=== PATIENT | female | born 1980 | race Caucasian/White ===

== ENCOUNTER 2016-03-15 19:21 | Emergency (ER) | payer OTHER ==
[~2016-03-15] VITALS: Ht 157.5 cm; Wt 82.0 kg
[~2016-03-15 19:21] MED LIST: ALBUAER19 INH; BUPR-266 PO; ESCI10TA17 PO; FLX/5 PO; FRCT/ PO; GABA1CAP4 PO; KLN5X PO; TRET15GE TOP; mirena
[2016-03-15 19:25] VITALS: TEMP 36.8; Ht 157.5 cm; Wt 82.0 kg
[2016-03-15] MEDS ORDERED: HYDROmorphone INJ 1 MG/ML SYR IV STA (19:33)
[2016-03-15] MEDS ORDERED: LINA1CAP2 PO (19:47)
[2016-03-15] MEDS ORDERED: LEVO50TA6 PO (19:49)
[2016-03-15] MEDS ORDERED: BUPR-79 PO (19:50)
[2016-03-15] MEDS ORDERED: LEVO1IUD2 INT UTER (19:55)
--- NOTE | 2016-03-15 19:58 | DIAGNOSTIC IMAGING REPORT ---
LEFT TIBIA/FIBULA 2 VIEWS ROUTINE CLINICAL HISTORY: Left leg pain. Fall. COMPARISON STUDY: None. FINDINGS: There is an oblique mildly displaced fracture within the distal shaft of the left fibula. This demonstrates up to 4 mm of medial displacement and posterior angulation. There is also a slightly comminuted fracture within the distal left tibia which extends to the articular surface. This also demonstrates up to 5 mm of medial displacement and posterior angulation. There soft tissue swelling within the distal left lower leg. IMPRESSION: Distal left tibial and fibular fractures as described above. Electronically signed by: Deacon Vyas M.D. 03/15/2016 7:56 PM
[2016-03-15] MEDS ORDERED: CHOL1000 PO (20:01)
[2016-03-15] MEDS ORDERED: CYAN10005 PO (20:01)
[2016-03-15] MEDS ORDERED: OXYCODONE IR HOME PACK PO ONE (20:15)
[2016-03-15] MEDS ORDERED: OXYC1TAB3 PO (20:20)
[2016-03-15] MEDS ORDERED: FENTANYL CITRATE INJ 50 MCG/1 ML 2 ML VIAL IV STA (20:22)
[2016-03-15 21:07] LABS: HEMATOCRIT 42.2 % (37-47); MEAN CELL VOLUME 88.3 fL (80-100); MEAN CORPUSCULAR HGB CONC 35.1 g/dl (32-36); MEAN PLATELET VOLUME 10.5 fL (7.4-10.4); PLATELET COUNT 235 K/uL (130-400); RED BLOOD COUNT 4.78 M/uL (4.2-5.4); WHITE BLOOD COUNT 11.97 K/uL (4.8-10.8)
[2016-03-15 21:26] LABS: BUN/CREATININE RATIO 19.2 (10-20); CALCIUM 9.2 mg/dl (8.5-10.1); CREATININE 0.93 mg/dl (0.60-1.20); POTASSIUM 3.8 mmol/L (3.5-5.1)
[2016-03-15 21:31] LABS: PREG INTERNAL NEGATIVE QC NEG CLEAR BACKGROUND; PREG INTERNAL POSITIVE QC POS CONTROL LINE
--- NOTE | 2016-03-15 21:34 | EMERGENCY ROOM VISIT NOTE ---
History First contact with patient: 19:28 Chief Complaint: CALF PAIN Stated Complaint: CALF PAIN History of Present Illness The patient is a 35 year old female who presents to the Emergency Room with complaints of left leg pain. The patient reports stepping in a hole in the dark , and twisted the leg. She was transported here via ALS ambulance with severe pain. She was administered morphine 7 mg and Zofran 1 mg IVP en route. The patient reports persistent pain rated a 6 out of 10. She denies any pain extending above the knee. She denies any paresthesias or numbness of the left foot or toes. She denies any prior history of left leg fractures or other left lower extremity surgeries. Review of Systems 10 system review was performed and was negative except for pertinent positives and negatives as indicated in history of present illness Past Medical/Surgical History Medical Problems: (1) Asthma (2) Depression (3) Headache (4) Migraine (5) MRSA (methicillin resistant Staphylococcus aureus) (6) Nephrolithiasis (7) URI (upper respiratory infection) Surgical Problems: (1) H/O wisdom tooth extraction (2) Hx of tonsillectomy (3) S/P thyroid biopsy Family History Cancer Diabetes mellitus Hypertension Kidney disease Kidney stones Social History Smoking Status: Never Smoker Alcohol Use: occasionally Marital Status: Occupation Status: employed Current/Historical Medications Scheduled Albuterol Inhaler (Ventolin Inhaler), 2 PUFFS INH QID PRN Bupropion Hcl (Bupropion Hcl Er), 200 MG PO BID Cholecalciferol (Vitamin D3), 1,000 UNITS PO DAILY Cyanocobalamin (Vitamin B-12), 1,000 MCG PO DAILY Escitalopram (Lexapro), 20 MG PO DAILY Gabapentin (Gabapentin), 300 MG PO TID Levonorgestrel (Iud) (Mirena), 20 MCG INT UTER CONTINOUS Levothyroxine Sodium (Levothyroxine Sodium), 50 MCG PO DAILY Tretinoin (Retin-A), 1 APPL TOP HS Scheduled PRN Acetamin/Butalbital/Caffeine (Fioricet), 1-2 TAB PO QID PRN for Headache Clonazepam (Clonazepam), 0.25 MG PO BID PRN for Anxiety/Agitation Cyclobenzaprine HCl (Cyclobenzaprine HCl), 5 MG PO TID PRN for Muscle Spasms Oxycodone Ir (Roxicodone Ir), 1-2 TAB PO Q4H PRN for Pain Miscellaneous Medications Linaclotide (Linzess), 290 MG PO Allergies Coded Allergies: Citalopram (Verified Allergy, Unknown, thought changes, 12/01/15) TOLD TO NEVER TAKE IT Latex (Verified Allergy, Unknown, hives ,rash, 12/01/15) pt Physical Exam Vital Signs Date Time Temp Pulse Resp B/P Pulse Ox O2 Delivery O2 Flow Rate FiO2 03/15/16 20:00 110 20 134/99 99 Room Air 03/15/16 19:25 36.8 100 20 134/99 97 Room Air Physical Exam CONSTITUTIONAL: Healthy and well nourished. Alert and oriented X 3 with positive affect. Patient appears in moderate discomfort from pain. HEENT: Normocephalic, atraumatic. Pupils equal, round and reactive. NECK: Full active range of motion without discomfort. RESPIRATORY: Clear to auscultation bilaterally with no wheezing, crackles, rhonchi or stridor. CARDIOVASCULAR: Regular rate and rhythm with no murmurs, rubs or gallops. MUSCULOSKELETAL: Examination shows mild edema of the left leg. She has generalized tenderness of the mid to proximal leg region. She has no focal tenderness over the medial or lateral knee joint line. No popliteal masses or obvious knee joint effusion. She has no tenderness to palpation about the ankle or foot. Pedal pulses are intact. INTEGUMENTARY: No rash or other significant dermatologic conditions noted. NEUROLOGIC: Left foot and toes are sensory intact. Medical Decision & Procedures ER Provider Diagnostic Interpretation: My interpretation of tib-fib x-rays shows a comminuted and intra-articular fracture component of the distal tibia, and oblique spiral fracture of the distal fibula with mild displacement. Radiologist report is as follows: LEFT TIBIA/FIBULA 2 VIEWS ROUTINE CLINICAL HISTORY: Left leg pain. Fall. COMPARISON STUDY: None. FINDINGS: There is an oblique mildly displaced fracture within the distal shaft of the left fibula. This demonstrates up to 4 mm of medial displacement and posterior angulation. There is also a slightly comminuted fracture within the distal left tibia which extends to the articular surface. This also demonstrates up to 5 mm of medial displacement and posterior angulation. There soft tissue swelling within the distal left lower leg. IMPRESSION: Distal left tibial and fibular fractures as described above. Post reduction x-ray shows adequate reduction and alignment. Laboratory Results 03/15/16 20:40 03/15/16 20:40 Test 03/15/16 20:40 Red Blood Count 4.78 M/uL (4.2-5.4) Mean Corpuscular Volume 88.3 fL (80-100) Mean Corpuscular Hemoglobin 31.0 pg (25-34) Mean Corpuscular Hemoglobin Concent 35.1 g/dl (32-36) RDW Standard Deviation 38.8 fL (36.4-46.3) RDW Coefficient of Variation 12.1 % (11.5-14.5) Mean Platelet Volume 10.5 fL (7.4-10.4) Anion Gap 12.0 mmol/L (3-11) Est Creatinine Clear Calc Drug Dose 84.6 ml/min Estimated GFR () 92.9 Estimated GFR (Non- 80.2 BUN/Creatinine Ratio 19.2 (10-20) Calcium Level 9.2 mg/dl (8.5-10.1) Human Chorionic Gonadotropin, Qual NEG (NEG) Medications Administered Medications (Trade) Dose Ordered Sig/[place] Route Start Time Stop Time Status Last Admin Dose Admin Hydromorphone HCl (Dilaudid Inj) 1 mg NOW STAT IV 03/15/16 19:33 03/15/16 19:34 DC 03/15/16 19:37 1 MG Fentanyl Citrate (Fentanyl Inj) 100 mcg NOW STAT IV 03/15/16 20:22 03/15/16 20:23 DC 03/15/16 20:37 100 MCG ED Course Patient history and physical exam were performed. Nurse's notes were reviewed. The patient did request additional medicine for pain. She was administered Dilaudid 1 mg IVP. The patient denied any nausea on initial exam. X-rays of the left tib-fib shows distal tibia and fibula fractures. The case was further discussed with Dr. Payan, orthopedic surgeon on-call, who requested a long posterior and stirrup Ortho-Glass splints. He will let the office know that the patient will be calling tomorrow morning to be seen by Dr. Mack to discuss surgical treatment. Preoperative labs were also requested by Dr. Payan , and ordered by me. The patient did request additional pain medication prior to moving the leg again, and was administered fentanyl 100 g IVP. Ortho-Glass splints were successfully applied. Neurovascular check after splint placement was normal. Post reduction x-rays showed adequate reduction and alignment. The patient was provided crutches to remain nonweightbearing. She received home packs and prescriptions for OxyIR 5 mg. No drinking or driving while taking OxyIR. She was also encouraged to take Tylenol 1000 mg every 6-8 hours for additional baseline pain relief. The patient was happy with plan of care, voiced understanding of all discharge instructions, and rated her pain a 3 out of 10 at the time of discharge. Medical Decision [place] Drug Monitoring Program Search Results: patient reviewed within database, no issues identified Impression Primary Impression: Closed left tibial fracture Additional Impressions: Closed left fibular fracture, Work related injury Departure Information Prescriptions Oxycodone Ir (Roxicodone Ir) 5 Mg Tab 1-2 TAB PO Q4H Y for Pain, #24 TAB For Initial Treatment Prov: Reji Nam PA 03/15/16 Referrals RV. Dumont MD (PCP) Patient Instructions A Signature Page, My [facility] Spreaker
[2016-03-15 21:51] VITALS: BP 139/97; PULSE 100; O2SAT 98
[2016-03-15 22:27] LABS: PROTHROMBIN TIME (PATIENT) 10.8 SECONDS (9.0-12.0)
--- NOTE | 2016-03-15 22:30 | DIAGNOSTIC IMAGING REPORT ---
LEFT TIBIA/FIBULA 2 VIEWS ROUTINE CLINICAL HISTORY: Post-reduction x-ray. Left lower leg fracture. COMPARISON STUDY: Left tibia/fibula 03/15/2016. FINDINGS: The patient is status post reduction of the distal left fibula and tibial fractures. Overlying splint material. Soft tissue swelling within the distal left lower leg. There is improved anatomic alignment of the distal fractures. The posterior angulation has essentially resolved. There is 5 mm of posterior displacement of the distal comminuted tibial fracture and 3 mm of posterior displacement the distal oblique fibular fracture. Again, the distal tibial fracture extends to the articular surface. IMPRESSION: Mildly displaced distal left tibial and fibular fractures with improved anatomic alignment status post reduction. Electronically signed by: Deacon Vyas M.D. 03/15/2016 10:29 PM
== END 2016-03-15 21:52 | disposition home or self-care (01) ==
LOC: EDBD 19:21 → C.EDD 19:22
DX: S82.202A Unspecified fracture of shaft of left tibia, initial encounter for closed fracture (principal); S82.402A Unspecified fracture of shaft of left fibula, initial encounter for closed fracture; X50.1XXA Overexertion from prolonged static or awkward postures, initial encounter; Y99.0 Civilian activity done for income or pay; J45.909 Unspecified asthma, uncomplicated; Z80.9 Family history of malignant neoplasm, unspecified; Z84.1 Family history of disorders of kidney and ureter; Z83.3 Family history of diabetes mellitus

== ENCOUNTER 2016-03-16 13:29 | Inpatient (IN) | payer OTHER ==
[~2016-03-16] VITALS: Ht 157.5 cm; Wt 81.8 kg
[~2016-03-16 13:29] MED LIST changes: +CHOL1000 PO; +CYAN10005 PO; +LEVO50TA6 PO; +LEVOIUD INT UTER; +LINA1CAP2 PO; +OXYC1TAB3 PO; -mirena
[2016-03-16 13:49] VITALS: BP 131/94; PULSE 91; TEMP 36.8; O2SAT 97; Ht 157.5 cm; Wt 81.8 kg
[2016-03-16] MEDS ORDERED: ONDANSETRON INJ 2 MG/ML 2 ML VIAL IV PRN (14:00)
[2016-03-16] MEDS ORDERED: MoRPHine SULFATE 2 MG/ML CARP IV PRN (14:00)
[2016-03-16] MEDS ORDERED: ALBUTEROL HFA 8 GM INHALER INH PRN (14:15)
[2016-03-16 15:33] VITALS: BP 129/85; PULSE 93; TEMP 37; O2SAT 97
--- NOTE | 2016-03-16 15:35 | DIAGNOSTIC IMAGING REPORT ---
LEFT TIBIA/FIBULA CT CT DOSE: HISTORY: Left lower leg fracture. TECHNIQUE: Multiaxial CT images of the left tibia/fibula were performed and reformatted in the sagittal and coronal plane without the use of contrast. COMPARISON: Left tibia/fibula 03/15/2016. FINDINGS: Subcutaneous edema within the distal left lower leg. There is again noted an oblique fracture within the distal shaft of the left fibula. This demonstrates 3 mm of medial displacement and 2 mm of posterior displacement. This also demonstrates mild posterior angulation. There is also a comminuted fracture involving the distal shaft of the left tibia that extends to the tibial plafond/articular surface. At the level of the distal shaft this fracture demonstrates 7 mm of posterior displacement and up to 4 mm of medial displacement. The proximal tibia and fibula are intact. IMPRESSION: Mildly displaced distal left tibial and fibular fractures as described above. Electronically signed by: Deacon Vyas M.D. 03/16/2016 3:33 PM
[2016-03-16] MEDS: OXYCODONE HCL IR 5 MG TAB (IMMEDIATE RELEASE) PO PRN (16:03)
[2016-03-16] MEDS: ACETAMINOPHEN 500 MG TAB PO SCH ×2 (16:04→21:33)
--- NOTE | 2016-03-16 16:28 | HISTORY & PHYSICAL EXAMINATION ---
DATE OF ADMISSION: 03/16/2016 CHIEF COMPLAINT: Left ankle pain. HISTORY OF PRESENT ILLNESS: The patient is a 35-year-old female who suffered a fall last evening when she stepped in a hole walking to her car at work. She had immediate pain and disability. She was taken to [facility] ED for evaluation. X-rays revealed a left distal tib-fib fracture. She was placed into a splint and sent home, referred to our office for further orthopedic evaluation. Upon evaluation in the office today, the patient is clearly too uncomfortable to be treated as an outpatient and given the nature of her fracture, she requires a CT scan and surgical fixation. PAST MEDICAL HISTORY: Asthma, depression, migraines, history of MRSA. PAST SURGICAL HISTORY: Unknown. MEDICATIONS: Include albuterol 2 puffs q.i.d. p.r.n., bupropion HCL 200 mg b.i.d., vitamin D 3000 units daily, vitamin B12 1000 mcg daily, Lexapro 20 mg daily, gabapentin 300 mg t.i.d., levothyroxine 50 mcg daily, Tretinoin applied topically daily, Linzess 290 mg daily. ALLERGIES: CITALOPRAM, LATEX. SOCIAL HISTORY AND REVIEW OF SYSTEMS: Noncontributory. PHYSICAL EXAMINATION: GENERAL: Well-nourished, well-developed female who is in quite a bit of discomfort due to her fracture. HEENT: Normocephalic, atraumatic, extraocular movements intact, oropharynx pink and moist. NECK: Supple without adenopathy. LUNGS: Clear to auscultation bilaterally. HEART: Regular rate and rhythm. ABDOMEN: Soft, nontender, nondistended. EXTREMITIES: The left lower leg is in a short posterior splint. Toes were mobile. X-RAYS: X-rays were reviewed. She has a displaced, comminuted intraarticular distal tibia fracture with associated distal fibular fracture. ASSESSMENT: Displaced, comminuted intraarticular left distal tibia fracture with associated distal fibula fracture. PLAN: Above discussed with patient and her . She is going to be admitted to the hospital for pain control. A CT scan will be ordered to further evaluate her fracture and surgical intervention will take place likely by Dr. Payan in the next several days.
[2016-03-16] MEDS: MoRPHine SULFATE 4 MG/ML 1 ML CARP\\VIAL IV PRN (21:20)
[2016-03-16] MEDS: GABAPENTIN 300 MG CAP PO SCH (21:21)
[2016-03-16] MEDS: BuPROPion SR 100 MG TABCR PO SCH (21:21)
[2016-03-16] MEDS: MoRPHine SULFATE 10 MG/ML CARP/VIAL IV PRN (23:29)
[2016-03-17] VITALS (8 sets, daily range): BP systolic 107–139; BP diastolic 68–85; PULSE 83–104; TEMP 36.7–37; O2SAT 96–99
[2016-03-17] MEDS: MoRPHine SULFATE 10 MG/ML CARP/VIAL IV PRN ×4 (04:57→23:52)
[2016-03-17] MEDS: ACETAMINOPHEN 500 MG TAB PO SCH ×3 (06:00→22:00)
[2016-03-17] MEDS: LEVOTHYROXINE 50 MCG TAB PO SCH (06:00)
[2016-03-17] MEDS: CHOLECALCIFEROL 1000 INTER.UNIT TAB PO SCH (09:00)
[2016-03-17] MEDS: GABAPENTIN 300 MG CAP PO SCH ×3 (09:00→21:02)
[2016-03-17] MEDS: BuPROPion SR 100 MG TABCR PO SCH ×2 (09:00→21:02)
[2016-03-17] MEDS: ESCITALOPRAM OXALATE 20 MG TAB PO SCH (09:00)
--- NOTE | 2016-03-17 10:33 | Orthopedic Progress Note ---
Orthopedic Progress Note Date of Service Mar 17, 2016. Subjective Reports: feeling well, Denies: SOB, chest pain, light headedness, nausea / vomiting Objective splint C/D/I, capillary refill less than 2 sec., A&O x3 Date Time Temp Pulse Resp B/P Pulse Ox O2 Delivery O2 Flow Rate FiO2 03/17/16 08:00 Room Air 03/17/16 07:21 36.7 83 16 139/85 99 Room Air 03/17/16 00:19 36.9 93 16 129/84 96 Room Air 03/16/16 23:30 Room Air 03/16/16 15:33 37.0 93 18 129/85 97 Room Air 03/16/16 15:10 Room Air 03/16/16 13:49 36.8 91 16 131/94 97 Room Air Assessment & Plan Assessment: Left Distal Tibia Fx with articular extension/ Fibula Fx Plan: Plan for OR today for ORIF of above fx's. Inhouse Planning Pain Management: Morphine, Oxy IR DVT Prophylaxis: SCDs
[2016-03-17] MEDS ORDERED: ONDANSETRON INJ 2 MG/ML 2 ML VIAL ONE (12:50)
[2016-03-17] MEDS ORDERED: DEXAMETHASONE SOD INJ 4 MG/ML VIAL ONE (12:50)
[2016-03-17] MEDS ORDERED: MIDAZOLAM HCL 1 MG/ML 2ML VIAL ONE (12:50)
[2016-03-17] MEDS ORDERED: PROPOFOL IV EMULSION 10 MG/ML 20 ML VIAL IV ONE (12:50)
[2016-03-17] MEDS ORDERED: LIDOCAINE HCL 2% 2 ML VIAL (20MG/ML) ONE (12:50)
[2016-03-17] MEDS ORDERED: FENTANYL CITRATE INJ 50 MCG/1 ML 2 ML VIAL ONE ×2 (12:50→14:02)
--- NOTE | 2016-03-17 12:54 | History & Physical Bridge Note ---
H&P Re-Evaluation Bridge Note: I have examined the patient, reviewed the History & Physical and in the interval since the performance of the History & Physical I have noted the following changes of clinical significance: No changes noted
[2016-03-17] MEDS ORDERED: BUPIVACAINE 0.5 % 5 MG/1 ML PF 10ML VIAL ONE (12:57)
[2016-03-17] MEDS ORDERED: CEFAZOLIN IV 2,000 MG/60 ML D5W IV ONE (13:17)
[2016-03-17] MEDS ORDERED: NURSING VERBAL MED ORDER ONE (13:30)
[2016-03-17] MEDS ORDERED: LACTATED RINGER'S 1000ML 1,000 ML IV PRN (13:46)
[2016-03-17] MEDS ORDERED: ONDANSETRON INJ 2 MG/ML 2 ML VIAL IV PRN (14:00)
[2016-03-17] MEDS ORDERED: LABETALOL HCL IV 5 MG/ML 20ML ONE (15:39)
--- NOTE | 2016-03-17 15:48 | DIAGNOSTIC IMAGING REPORT ---
Fracture LEFT ANKLE 2 VIEWS CLINICAL HISTORY: Fracture TECHNIQUE: Image intensifier COMPARISON STUDY: 03/15/2016 FINDINGS: Reduction internal fixation of fractures of the tibia as well as fibula. Alignment appears to be anatomic. IMPRESSION: Anatomic alignment status post open reduction internal fixation Electronically signed by: Dennis Feldman M.D. 03/17/2016 3:46 PM Dictated Date/Time: 03/17/2016 3:45 PM
--- NOTE | 2016-03-17 15:48 | [facility] Post Operative Brief Note ---
Immediate Operative Summary Operative Date Mar 17, 2016. Pre-Operative Diagnosis Displaced, comminuted intraarticular left distal tibia fracture with associated distal fibula fracture. Post-Operative Diagnosis Displaced, comminuted intraarticular left distal tibia fracture with associated distal fibula fracture. Procedure(s) Performed Left Distal Tibia Fibula Fracture Open Reduction Internal Fixation Surgeon Dr. Ariel Mack Full Stack Developer Surgeon(s) Dev Garza PA-C Estimated Blood Loss 100cc Findings intraarticular comminuted tib fib fx Specimens none per surgeon Disposition Recovery Room / PACU
[2016-03-17] MEDS: FENTANYL CITRATE INJ 50 MCG/1 ML 2 ML VIAL IV PRN ×2 (16:52→16:57)
--- NOTE | 2016-03-17 17:15 | Anesthesiology Progress Note ---
Anesthesia Post Op Note Date & Time Mar 17, 2016 at 17:14 Vital Signs Pain Intensity: 8.0 Vital Signs Past 12 Hours Date Time Temp Pulse Resp B/P Pulse Ox O2 Delivery O2 Flow Rate FiO2 03/17/16 16:55 36.5 86 15 128/86 96 Room Air 03/17/16 16:45 86 16 132/77 100 Room Air 03/17/16 16:35 89 12 132/80 100 Mask 10 03/17/16 16:25 87 12 123/85 100 Mask 10 03/17/16 16:16 36.5 100 16 115/78 100 Mask 10 03/17/16 13:02 37.0 81 20 133/96 95 Room Air 03/17/16 08:00 Room Air 03/17/16 07:21 36.7 83 16 139/85 99 Room Air Notes Mental Status: alert / awake / arousable Nausea / Vomiting: adequately controlled Pain: adequately controlled Airway Patency, RR, SpO2: stable & adequate BP & HR: stable & adequate Hydration State: stable & adequate Anesthetic Complications: no major complications apparent
--- NOTE | 2016-03-17 17:45 | DIAGNOSTIC IMAGING REPORT ---
LEFT TIBIA/FIBULA 2 VIEWS ROUTINE CLINICAL HISTORY: Postop internal fixation COMPARISON: 03/15/2016 DISCUSSION: The comminuted distal tibial fracture has been fixated with a medial metallic plate and multiple screws. The distal fibular fracture has been fixated with a lateral metallic plate and multiple screws. The tibial fracture has intra-articular component. Alignment appears near-anatomic. The fine bony details obscured by overlying plaster cast. IMPRESSION: Interval internal fixation of the distal tibia and fibular fractures with application of a plaster cast Electronically signed by: Deangelo Araiza M.D. 03/17/2016 5:43 PM Dictated Date/Time: 03/17/2016 5:42 PM
[2016-03-17] MEDS: CEFAZOLIN IV 2,000 MG in DEXTROSE 5% 50ML 50 ML IV SCH (22:43)
[2016-03-18 04:08] VITALS: BP 126/82; PULSE 96; TEMP 36.9; O2SAT 98
[2016-03-18] MEDS: LEVOTHYROXINE 50 MCG TAB PO SCH (05:38)
[2016-03-18] MEDS: ACETAMINOPHEN 500 MG TAB PO SCH ×3 (05:39→21:38)
[2016-03-18] MEDS: CEFAZOLIN IV 2,000 MG in DEXTROSE 5% 50ML 50 ML IV SCH (05:39)
--- NOTE | 2016-03-18 06:58 | OPERATIVE REPORT ---
DATE OF OPERATION: 03/17/2016 PREOPERATIVE DIAGNOSIS: Comminuted intra-articular tib-fib fracture, left ankle. POSTOPERATIVE DIAGNOSIS: Comminuted intra-articular tib-fib fracture, left ankle. PROCEDURE: Open reduction internal fixation of comminuted tib-fib fracture, left ankle. SURGEON: Ariel Mack MD THERMOFORMING OPERATOR: Dev Garza PA-C ANESTHESIA: General. COMPLICATIONS: None. DESCRIPTION OF PROCEDURE: Following induction of adequate general anesthesia, the patient's left leg was prepped and draped in usual sterile manner. Limb was exsanguinated with an Esmarch bandage and tourniquet was inflated to 350 mmHg. A longitudinal incision was made over the fibula. Subcutaneous tissue was sharply and bluntly dissected. Electrocautery was used for hemostasis. Subperiosteal dissection was utilized to expose the fracture site and hematoma was removed from the fracture, where a long oblique fracture was noted. The fracture was reduced into its anatomic position and held using a single cortical screw under lag mode. Next, an 8-hole 1/3 tubular plate was applied to the lateral aspect of the fibula, it was fixed proximally using 4 fibular locking screws and distally with 3 fibular locking screws and a single oblique cortical screw. This anatomically fixed the fracture and secondarily reduced the tibia fracture, acting as a lateral strut. The decision was made to proceed with a percutaneous fixation of the tibia fracture. A longitudinal incision was made over the medial malleolus roughly 3.5 cm and an 8-hole medial tibial locking plate was ____ along the medial aspect of the tibia. Image intensification revealed adequate plate placement and bone reduction. First the plate was affixed to the proximal fragment using a single cortical screw to lag the plate onto the bone. Next, distal screws were placed in locking mode and finally an additional 3 locking screws were placed proximally fixing the fracture in nearly anatomic position. The wounds were irrigated and closed with 2-0 Dexon and nylon. Sterile dressing of Adaptic, 4 x 4's, sterile Webril and plaster splint was applied. The patient was awakened and taken to recovery in stable and good condition. She tolerated the procedure well. Mr. Garza was essential in all portions of the case including positioning, retraction, surgical assistance, wound closure, dressing and splint application. I attest to the content of the Intraoperative Record and any orders documented therein. Any exceptio ns are noted below.
[2016-03-18 07:49] VITALS: BP 129/82; PULSE 86; TEMP 36.9; O2SAT 98
--- NOTE | 2016-03-18 07:49 | Orthopedic Progress Note ---
Orthopedic Progress Note Date of Service Mar 18, 2016. Subjective Post OP Day: 1 Reports: feeling well Objective N/V intact, splint C/D/I, dressing C/D/I Date Time Temp Pulse Resp B/P Pulse Ox O2 Delivery O2 Flow Rate FiO2 03/18/16 04:08 36.9 96 16 126/82 98 Room Air 03/17/16 23:50 Room Air 03/17/16 23:39 36.9 93 16 124/79 98 Room Air 03/17/16 20:33 36.8 104 20 127/81 98 Room Air 03/17/16 19:15 36.8 98 18 129/83 98 Room Air 03/17/16 18:29 37.0 94 18 107/68 97 Room Air 03/17/16 18:00 36.8 90 16 121/76 97 Room Air 03/17/16 17:30 96 Room Air 03/17/16 17:30 96 Room Air 03/17/16 17:30 36.9 96 17 120/82 96 Room Air 03/17/16 17:20 36.8 90 19 134/85 93 Room Air 03/17/16 17:05 91 17 125/84 95 Room Air 03/17/16 16:55 36.5 86 15 128/86 96 Room Air 03/17/16 16:45 86 16 132/77 100 Room Air 03/17/16 16:35 89 12 132/80 100 Mask 10 03/17/16 16:25 87 12 123/85 100 Mask 10 03/17/16 16:16 36.5 100 16 115/78 100 Mask 10 03/17/16 13:02 37.0 81 20 133/96 95 Room Air 03/17/16 08:00 Room Air Assessment & Plan Assessment: 35 yo female stable POD #1 s/p ORIF left distal tib-fib fx Plan: 1. Med management 2. DVT prophylaxis- ASA, TEDs, AV impulse boots 3. PT/OT 4. D/C planning- home Inhouse Planning Pain Management: Morphine, Oxy IR DVT Prophylaxis: SCDs
--- NOTE | 2016-03-18 09:02 | Anesthesiology Progress Note ---
Anesthesia Post Op Note Date & Time Mar 18, 2016 at 09:00 Vital Signs Pain Intensity: 2.0 Vital Signs Past 12 Hours Date Time Temp Pulse Resp B/P Pulse Ox O2 Delivery O2 Flow Rate FiO2 03/18/16 07:49 36.9 86 18 129/82 98 Room Air 03/18/16 07:30 Room Air 03/18/16 04:08 36.9 96 16 126/82 98 Room Air 03/17/16 23:50 Room Air 03/17/16 23:39 36.9 93 16 124/79 98 Room Air Notes Mental Status: alert / awake / arousable, participated in evaluation Pt Amnestic to Procedure: Yes Nausea / Vomiting: adequately controlled Pain: adequately controlled Airway Patency, RR, SpO2: stable & adequate BP & HR: stable & adequate Hydration State: stable & adequate Anesthetic Complications: no major complications apparent
[2016-03-18] MEDS: GABAPENTIN 300 MG CAP PO SCH ×3 (09:08→20:43)
[2016-03-18] MEDS: BuPROPion SR 100 MG TABCR PO SCH ×2 (09:08→20:43)
[2016-03-18] MEDS: ESCITALOPRAM OXALATE 20 MG TAB PO SCH (09:08)
[2016-03-18] MEDS: CHOLECALCIFEROL 1000 INTER.UNIT TAB PO SCH (09:09)
[2016-03-18] MEDS: OXYCODONE HCL IR 5 MG TAB (IMMEDIATE RELEASE) PO PRN ×2 (11:44→23:28)
[2016-03-18 12:19] VITALS: BP 154/99; PULSE 105; TEMP 37.2; O2SAT 96
[2016-03-18] MEDS: MoRPHine SULFATE 4 MG/ML 1 ML CARP\\VIAL IV PRN (12:24)
[2016-03-18 15:13] VITALS: BP 147/83; PULSE 105; TEMP 37.2; O2SAT 99
[2016-03-18] MEDS: MoRPHine SULFATE 10 MG/ML CARP/VIAL IV PRN ×2 (15:22→20:42)
--- NOTE | 2016-03-18 17:21 | Discharge Instructions ---
Discharge Instructions Admission Reason for Admission: Lt Tib/Fib Fx-Displaced- Or On Monday Discharge Discharge Diagnosis / Problem: Open reduction internal fixation of comminuted tib-fib fracture, left leg Discharge Goals Goal(s): Decrease discomfort, Improve function, Increase independence Activity Recommendations Activity Limitations: as noted below Weightbearing Status: Left non-weightbearing . Instructions / Follow-Up Instructions / Follow-Up ACTIVITY RECOMMENDATIONS: * remain strict non-weightbearing on your left leg, use either crutches or a walker to assist. SPECIAL CARE INSTRUCTIONS: * Some drainage onto the dressing is normal and is no cause for alarm. * Some swelling is natural especially after walking. When resting, keep your foot elevated above the level of your heart. * Call the doctor's office at if you notice increased drainage, fever over 101 degrees F. or severe constant pain. BANDAGE: * Leave bandage/cast in place unless otherwise directed. * Keep bandage/cast dry at all times. FOLLOW UP VISIT: If appointment is not already scheduled: Please call [facility] to make a follow-up appointment after your surgery at . Current Hospital Diet Patient's current hospital diet: Regular Diet Discharge Diet Recommended Diet: Regular Diet Procedures Procedures Performed: Left Distal Tibia Fibula Fracture Open Reduction Internal Fixation Pending Studies Studies pending at discharge: no Medical Emergencies . Who to Call and When: Medical Emergencies: If at any time you feel your situation is an emergency, please call [phone] immediately. . Non-Emergent Contact Non-Emergency issues call your: Primary Care Provider, Surgeon . "Provider Documentation" section prepared by Dennis Joiner. VTE Core Measure Inpt VTE Proph given/why not?: Palomo Wolfe, SCD's
[2016-03-18 23:06] VITALS: BP 127/81; PULSE 90; TEMP 37.2; O2SAT 97
[2016-03-19] MEDS: LEVOTHYROXINE 50 MCG TAB PO SCH (05:37)
[2016-03-19] MEDS: ACETAMINOPHEN 500 MG TAB PO SCH (05:38)
[2016-03-19] MEDS: OXYCODONE HCL IR 5 MG TAB (IMMEDIATE RELEASE) PO PRN ×2 (05:38→10:03)
[2016-03-19 05:57] VITALS: BP 130/86; PULSE 91; TEMP 36.9; O2SAT 97
--- NOTE | 2016-03-19 07:44 | Orthopedic Progress Note ---
Orthopedic Progress Note Date of Service Mar 19, 2016. Subjective Post OP Day: 2 Reports: feeling well, pain controlled w PO medications, Denies: SOB, calf pain , chest pain, complaints, light headedness, nausea / vomiting Objective N/V intact, splint C/D/I, capillary refill less than 2 sec., dressing C/D/I, A& O x3, toes mobile Date Time Temp Pulse Resp B/P Pulse Ox O2 Delivery O2 Flow Rate FiO2 03/19/16 05:57 36.9 91 16 130/86 97 Room Air 03/18/16 23:20 Room Air 03/18/16 23:06 37.2 90 16 127/81 97 Room Air 03/18/16 15:35 Room Air 03/18/16 15:13 37.2 105 20 147/83 99 03/18/16 12:19 37.2 105 18 154/99 96 Room Air 03/18/16 07:49 36.9 86 18 129/82 98 Room Air Assessment & Plan Assessment: 35 yo female stable POD #2 s/p ORIF left distal tib-fib fx Plan: 1. Med management 2. DVT prophylaxis- ASA, TEDs, AV impulse boots 3. PT/OT 4. D/C planning- home
[2016-03-19] MEDS ORDERED: RXC5 PO (07:47)
[2016-03-19] MEDS ORDERED: ACET-1138 PO (07:47)
[2016-03-19] MEDS ORDERED: OXYSR/10 PO (07:47)
[2016-03-19] MEDS: GABAPENTIN 300 MG CAP PO SCH (07:50)
[2016-03-19] MEDS: BuPROPion SR 100 MG TABCR PO SCH (07:51)
[2016-03-19] MEDS: CHOLECALCIFEROL 1000 INTER.UNIT TAB PO SCH (07:51)
[2016-03-19] MEDS: ESCITALOPRAM OXALATE 20 MG TAB PO SCH (07:51)
[2016-03-19 08:05] VITALS: BP 130/86; PULSE 91; TEMP 36.9; O2SAT 97
--- NOTE | 2016-04-13 14:20 | DISCHARGE SUMMARY ---
CHIEF COMPLAINT: Left tib-fib fracture. Please see complete history and physical examination. HOSPITAL COURSE: The patient underwent ORIF of her left tib-fib fracture without complications. She tolerated the procedure well and was discharged to the recovery room in stable condition. Her postoperative course was relatively uneventful. Her postoperative pain was reasonably well controlled with a combination of IV and oral pain medications. She utilized AV Impulse Boots and ANAID stockings for DVT prophylaxis. Her H\T\H was stable and did not require transfusion. Her surgical dressing will remain in place for approximately 10-14 days postoperatively until followup visit in the office. She tolerated postoperative physical therapy reasonably well where she was ambulating appropriately. She was non-weightbearing to the left lower extremity. She was discharged home on postoperative day #2. She will continue her non-weightbearing with crutches. She will maintain her dressing until reevaluation and follow up in Dr. Mack's clinic in approximately 10-14 days.
== END 2016-03-19 10:18 | disposition home or self-care (01) | DRG 494 ==
LOC: C.3E 13:29
PROVIDERS: ADMIT Orthopaedic Surgery Sports Medicine; ATTEND Orthopaedic Surgery Sports Medicine
PROC: 0QSH34Z Reposition Left Tibia with Internal Fixation Device, Percutaneous Approach (ICD-10-PCS; 2016-03-17)
PROC: 0QSK04Z Reposition Left Fibula with Internal Fixation Device, Open Approach (ICD-10-PCS; principal; 2016-03-17 10:00)
DX: S82.302A Unspecified fracture of lower end of left tibia, initial encounter for closed fracture (principal); S82.831A Other fracture of upper and lower end of right fibula, initial encounter for closed fracture; W17.2XXA Fall into hole, initial encounter; J45.909 Unspecified asthma, uncomplicated; F32.9 Major depressive disorder, single episode, unspecified; Z79.899 Other long term (current) drug therapy

== ENCOUNTER → 2016-07-07 | Outpatient (CLI) | payer OTHER ==
[~2016-07-07] MED LIST changes: +ACET-1138 PO; -OXYC1TAB3 PO; +OXYSR/10 PO; +RXC5 PO
[2016-07-07 11:37] LABS: THYROID STIMULATING HORMONE 1.27 uIu/ml (0.300-4.500)
== END | disposition home or self-care (01) ==
LOC: C.LAB1850 09:57
PROVIDERS: ATTEND Internal Medicine Endocrinology, Diabetes & Metabolism
DX: E04.2 Nontoxic multinodular goiter (principal)

== ENCOUNTER → 2016-07-13 | Outpatient (CLI) | payer OTHER ==
--- NOTE | 2016-07-13 14:25 | DIAGNOSTIC IMAGING REPORT ---
THYROID ULTRASOUND HISTORY: Thyroid nodules E04.2 Multiple thyroid nodules COMPARISON: 11/23/2015 FINDINGS: Due to scheduling error, fine-needle aspiration was not possible due to schedule conflict. A. Evaluation of the isthmus nodule was performed. This shows it to be similar compared to the prior study of 1 cm. As it was not diagnostic in terms of prior biopsy, is recommended that patient be rescheduled for fine-needle aspiration. IMPRESSION: Fine-needle aspiration could not be performed due to a scheduling error on the part of this institution. A repeat evaluation of the thyroid isthmus nodule shows it to be unchanged from the prior exam. It is recommended that the patient be rescheduled for fine-needle aspiration biopsy of this structure. Electronically signed by: Dennis Feldman M.D. 07/13/2016 2:24 PM Dictated Date/Time: 07/13/2016 2:19 PM
== END | disposition home or self-care (01) ==
LOC: C.ULTR 13:46
PROVIDERS: ATTEND Internal Medicine Endocrinology, Diabetes & Metabolism
DX: E04.2 Nontoxic multinodular goiter (principal)

== ENCOUNTER → 2016-07-28 | Outpatient (CLI) | payer OTHER ==
--- NOTE | 2016-07-28 10:17 | Discharge Instructions ---
Discharge Instructions Procedure Procedure Date: July 28, 2016. Reason for visit: Multiple Thyroid Nodules. Discharge Discharge Date: July 28, 2016. Discharge Diagnosis: Thyroid nodule Instructions Return to School/Work: no limitations Recommended Home Diet: Resume Previous Diet Provider Instructions: Fine-needle aspiration of a nodule in the left thyroid isthmus is performed with 2 passes utilizing 25-gauge needles. Specimens were reviewed by the pathologist and deemed adequate for diagnosis. There were no immediate complications. Allergies Coded Allergies: Citalopram (Verified Allergy, Unknown, thought changes, 12/01/15) TOLD TO NEVER TAKE IT Latex (Verified Allergy, Unknown, hives ,rash, 12/01/15) pt [place] (Verified Allergy, Unknown, Uknown, 03/18/16) [place] Recommendations: Call your doctor if: * Temperature above 101 degrees * Pain not relieved by pain medicine ordered * There is increased drainage or redness from any incision * You have any unanswered questions or concerns. Your Doctors Instructions noted above were prepared by provider Anastacio Walton. Patient Signature Section: Patient Instructions Signature Page Diane Nguyen Patient (or Guardian) Signature/Date: I have read and understand the instructions given to me by my caregivers. Caregiver/RN/Doctor Signature/Date: The above-named patient and/or guardian has received patient instructions on this date. + Original Patient Signature Page (only) stays with chart. Please make copy for patient.
--- NOTE | 2016-07-28 10:39 | DIAGNOSTIC IMAGING REPORT ---
ULTRASOUND-GUIDED FINE-NEEDLE ASPIRATION THYROID CLINICAL HISTORY: Isthmic thyroid nodule. COMPARISON STUDY: Thyroid ultrasound dated 07/13/2016. PROCEDURE: The risks, benefits, and alternatives to the procedure were discussed with the patient. Written informed consent was obtained. The patient was placed supine in ultrasound, and the 0.9 x 0.7 x 0.9 cm hypoechoic nodule in the left thyroid isthmus was localized by ultrasound and selected for fine needle aspiration. The neck was prepped and draped in the usual sterile fashion. The nodule was aspirated under ultrasound guidance with 2 passes utilizing 25-gauge needles. Specimens were reviewed by the pathologist in real-time and deemed adequate for diagnosis. The patient tolerated the procedure well and left the department in satisfactory condition. IMPRESSION: Completed fine-needle aspiration of an isthmic thyroid nodule as above. Electronically signed by: Anastacio Walton M.D. 07/28/2016 10:37 AM Dictated Date/Time: 07/28/2016 10:37 AM
== END | disposition home or self-care (01) ==
LOC: C.ULTR 09:30
PROVIDERS: ATTEND Internal Medicine Endocrinology, Diabetes & Metabolism
DX: E04.2 Nontoxic multinodular goiter (principal)

== ENCOUNTER → 2016-08-12 | Outpatient (CLI) | payer OTHER ==
--- NOTE | 2016-08-12 14:41 | DIAGNOSTIC IMAGING REPORT ---
ULTRASOUND-GUIDED FINE-NEEDLE ASPIRATION OF A LEFT THYROID NODULE HISTORY: Left thyroid nodule. MULTIPLE THYROID NODULES COMPARISON: Thyroid ultrasound 11/23/2015. PROCEDURE: Written informed consent was obtained. The neck was prepped and draped in the usual sterile fashion. 1% lidocaine was used for local anesthesia. A total of 3 passes using a 25-gauge needle were made through heterogeneous nodule within the mid to lower pole of the left thyroid lobe under ultrasound guidance. Specimens were given to the on-site pathologist who determined adequate tissue for diagnosis. The patient tolerated the procedure well. There were no immediate complications. IMPRESSION: Successful ultrasound-guided fine-needle aspiration of a left thyroid nodule. Electronically signed by: Deacon Vyas M.D. 08/12/2016 2:39 PM Dictated Date/Time: 08/12/2016 2:39 PM
== END | disposition home or self-care (01) ==
LOC: C.ULTR 12:25
PROVIDERS: ATTEND Internal Medicine Endocrinology, Diabetes & Metabolism
DX: E04.2 Nontoxic multinodular goiter (principal)

== ENCOUNTER → 2017-01-23 | Outpatient (CLI) | payer OTHER | END | disposition home or self-care (01) | LOC: C.LAB1850 16:00 | PROVIDERS: ATTEND Physician Assistant | DX: Z00.00 Encounter for general adult medical examination without abnormal findings (principal) ==

== ENCOUNTER → 2017-03-07 | Outpatient (CLI) | payer BC ==
[~2017-03-07] MED LIST changes: +AMT/50 PO; +BACL20TA PO; +DIAZ-165 PO; +GABA-1219 PO; -GABA1CAP4 PO; +KETO10TA PO; +LEVO1IUD2 INT UTER; -LEVOIUD INT UTER; +OXYC-737 PO; +OXYC-90 PO; +PRED50TA PO; +WLLSR/200 PO
== END | disposition home or self-care (01) ==
LOC: C.PAPS 11:21
PROVIDERS: ATTEND Physician Assistant
DX: Z01.419 Encounter for gynecological examination (general) (routine) without abnormal findings (principal); Z97.5 Presence of (intrauterine) contraceptive device

== ENCOUNTER → 2017-03-14 | Outpatient (CLI) | payer BC | END | disposition home or self-care (01) | LOC: C.LABSPEC 11:05 | PROVIDERS: ATTEND Physician Assistant | DX: Z30.430 Encounter for insertion of intrauterine contraceptive device (principal) ==

== ENCOUNTER → 2017-05-05 | Outpatient (CLI) | payer BC ==
[~2017-05-05] MED LIST changes: -AMT/50 PO; -BACL20TA PO; -DIAZ-165 PO; -KETO10TA PO; -OXYC-737 PO; -OXYC-90 PO; -PRED50TA PO; -WLLSR/200 PO
== END | disposition home or self-care (01) ==
LOC: C.LAB1850 16:28
PROVIDERS: ATTEND Internal Medicine Endocrinology, Diabetes & Metabolism
DX: E04.2 Nontoxic multinodular goiter (principal)

== ENCOUNTER → 2017-05-18 | Outpatient (CLI) | payer OTHER, BC ==
[2017-05-18 15:32] LABS: BASO % 0.2 %; BASO ABS # 0.02 K/uL (0-0.2); EOS % 0.7 %; EOS ABS # 0.06 K/uL (0-0.5); HEMOGLOBIN 15.2 g/dL (12.0-16.0); IG# 0.02 K/uL (0.00-0.02); LYMPH % 18.7 %; LYMPH ABS # 1.71 K/uL (1.2-3.4); MEAN CELL VOLUME 88.1 fL (80-100); MEAN CORPUSCULAR HEMOGLOBIN 31.1 pg (25-34); MEAN CORPUSCULAR HGB CONC 35.3 g/dl (32-36); MEAN PLATELET VOLUME 9.6 fL (7.4-10.4); MONO % 4.6 %; MONO ABS # 0.42 K/uL (0.11-0.59); NEUT % 75.6 %; NEUT ABS # 6.91 K/uL (1.4-6.5); PLATELET COUNT 248 K/uL (130-400); RED CELL DISTRIBUTION WIDTH SD 41.6 fL (36.4-46.3); WHITE BLOOD COUNT 9.14 K/uL (4.8-10.8)
[2017-05-18 16:36] LABS: BLOOD UREA NITROGEN 14 mg/dl (7-18); CALCIUM 8.9 mg/dl (8.5-10.1); CARBON DIOXIDE 25 mmol/L (21-32); GLUCOSE 78 mg/dl (70-99); SODIUM 137 mmol/L (136-145)
== END | disposition home or self-care (01) ==
LOC: C.LAB 14:42
PROVIDERS: ATTEND Orthopaedic Surgery
DX: T85.848A Pain due to other internal prosthetic devices, implants and grafts, initial encounter (principal); X58.XXXA Exposure to other specified factors, initial encounter

== ENCOUNTER → 2017-05-25 | Outpatient (CLI) | payer OTHER, BC ==
--- NOTE | 2017-05-25 16:37 | DIAGNOSTIC IMAGING REPORT ---
CT SCAN OF THE LEFT LOWER EXTREMITY WITHOUT IV CONTRAST CLINICAL HISTORY: Left leg pain secondary to prosthetic device. COMPARISON STUDY: CT scan of the left lower extremity dated 03/16/2016. Radiographs of the left tibia and fibula dated 03/17/2016. TECHNIQUE: CT scan of the left lower extremity is performed from the knee joint to the foot. Images are reviewed in the axial, sagittal, and coronal planes. IV contrast was not administered for this examination. A dose lowering technique was utilized adhering to the principles of ALARA. Note that interpretation is suboptimal without contrast and plain film correlate. The examination is also degraded by streak artifact from metallic orthopedic hardware. CT DOSE: 425.13 mGy.cm FINDINGS: The skeletal structures demonstrate mild osteopenia. No acute fracture is identified. There is chronic posttraumatic deformity of the distal tibial and fibular shafts. There has been buttress plate fixation of both the distal tibia and fibula. Numerous cortical lag screws transfix the buttress plates. The orthopedic hardware appears intact. There is a persistent cortical defect identified in the lateral aspect of the distal tibial shaft on image #558. 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 The cortical defect measures up to 8 mm in length. The knee and ankle joints are maintained as visualized. The overlying soft tissues are normal in appearance. IMPRESSION: 1. There is chronic posttraumatic deformity of the distal tibia and fibula status post open reduction and internal fixation as above. The orthopedic hardware appears intact. 2. There is an 8 mm cortical defect identified involving the lateral shaft of the distal tibia. 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 Dictated: 05/25/2017 4:03 PM Transcribed: 05/25/2017 4:37 PM [place] Electronically signed by: Anastacio Walton M.D. 05/26/2017 8:02 AM Dictated Date/Time: 05/25/2017 4:03 PM
== END | disposition home or self-care (01) ==
LOC: C.CTS 15:47
PROVIDERS: ATTEND Orthopaedic Surgery Orthopaedic Trauma
DX: T85.848A Pain due to other internal prosthetic devices, implants and grafts, initial encounter (principal); Y83.1 Surgical operation with implant of artificial internal device as the cause of abnormal reaction of the patient, or of later complication, without mention of misadventure at the time of the procedure

== ENCOUNTER 2017-06-28 17:35 | Emergency (ER) | payer BC, OTHER ==
[~2017-06-28] VITALS: Ht 157.5 cm; Wt 85.1 kg
[2017-06-28 17:52] VITALS: Ht 157.5 cm; Wt 85.1 kg
[2017-06-28] MEDS ORDERED: MoRPHine SULFATE 10 MG/ML CARP/VIAL IM STA (19:13)
[2017-06-28] MEDS ORDERED: DIAZEPAM 5MG TAB PO STA (19:13)
[2017-06-28] MEDS ORDERED: KETOROLAC TROMETHAMINE 60 MG/2 ML VIAL IM STA (19:13)
[2017-06-28] MEDS ORDERED: ONDANSETRON 4MG OD TAB PO ONE (19:15)
[2017-06-28] MEDS ORDERED: OXYC1TAB3 PO (20:04)
[2017-06-28] MEDS ORDERED: BACL20TA PO ×2 (20:04→20:06)
--- NOTE | 2017-06-28 20:06 | EMERGENCY ROOM VISIT NOTE ---
ED Visit Note First contact with patient: 18:14 CHIEF COMPLAINT: Low back spasms x 1 week HISTORY OF PRESENT ILLNESS: Patient is a 36-year-old white female with past medical history significant for low back pain after an injury many years ago, who presents emergency department for evaluation of left-sided low back pain radiating into the left leg times roughly 1 week. Patient injured her back in 2000, reports that she has bulging disks in her low back that occasionally cause muscle spasms. She gets an episode of severe pain and spasms every couple of years, but her last episode was about 2004. Patient states that her symptoms started about 2 weeks ago after driving back from [place] for the . She describes a spasming pain across her entire low back left greater than right that radiates into the left buttock, of the left hip and down the left leg. She has been taking Flexeril, ibuprofen, applying heat and icy hot and massaging the area, but her symptoms are not improving. The patient does also have chronic pain in her left leg status post ORIF of a tibial plateau fracture. She is scheduled to have a revision procedure in August at [facility] due to a nonunion. She does have some chronic peripheral neuropathy can vary to the trauma, which is stable for the patient. She presently rates her pain a 9/10. She denies any pain radiating into the right leg. She denies any bowel or bladder incontinence or saddle anesthesias. She denies any urinary symptoms. She has a history of kidney stones, but states this is not at all similar. REVIEW OF SYSTEMS: Review of systems as per HPI. All other systems reviewed were negative. 10 systems reviewed. PMH: Electronic medical records are reviewed and summarized as above/below. See Problem List. SOCIAL HISTORY: Patient lives at home with her family. Employed. Non-smoker. PHYSICAL EXAM: Vital Signs: Reviewed Nurse's notes. CONSTITUTIONAL: Patient is in a well-appearing 36-year-old female who is awake and alert and laying supine on the gurney in moderate distress due to their back pain. There is moderate discomfort with position changes. CARDIOVASCULAR: Regular rate and rhythm, with normal S1 and S2, no murmur or gallop or rub is heard. No carotid bruits auscultated. No JVD. Peripheral pulses easily palpable. RESPIRATORY: Breath sounds equal and clear to auscultation without wheezes, rales, or rhonchi heard. Full and equal chest expansion without accessory muscle use or retractions. ABDOMEN: Bowel sounds are present. Abdomen is soft, nontender and nondistended. INTEGUMENTARY: No lesions or rash, normal skin turgor. LYMPH: No lymphadenopathy. SPINE: Examination of the patient's back does not demonstrate any ecchymosis, abrasions or outward signs of trauma. No erythema, increased warmth or induration. Patient has midline discomfort to palpation over the low lumbar spine, primarily on the left. There is pain over the left SI joint. She has increased pain with range of motion including rotation and flexion. EXTREMITIES: Leg lengths are symmetrical. Negative logroll bilaterally. Normal strength including dorsi-flexion and plantar flexion of the great toes and ankles and flexion and extension of the knees and flexion of the hips. Positive left straight leg raise testing, negative right SLR. Lower extremity DTRs are equal and symmetrical bilaterally. Distal pulses are easily palpable. Sensation light touch is intact over the lower extremities, diminished over the left slightly. ED COURSE: The patient was seen and assessed as above. Her old records were reviewed. Treatment options were discussed with her. She does not have any acute trauma or direct injury to the back to indicate radiographs at this time. MRI from 2014 was reviewed which showed multilevel degenerative changes throughout the entire lumbar spine, with mild disc disease. She was medicated with Toradol 60 mg IM, morphine 6 mg IM with Zofran 4 mg ODT and Valium 10 mg orally. She was reassessed and reported that her symptoms had improved, to the point, where she felt that she could be discharged home to continue oral medications. Her is driving. As the Flexeril has been ineffective, she will be switched to baclofen. She was encouraged to continue heat and ibuprofen and was given a small prescription for OxyIR to use as needed for severe pain. Patient was reviewed in the [facility] Prescription Drug Monitoring Program, and there were no red flags noted. She was advised to follow-up with your primary care provider for further care and management as she may benefit from a physical therapy evaluation if her symptoms are not improving. She rated her discomfort a 4/10 at discharge. MEDICAL DECISION MAKING: I do not suspect acute compression syndrome, cauda equina, diskitis, epidural abscess, hematoma or neurovascular compromise. Medication reconciliation: I attest that I have personally reviewed the patient' s current medication list. Blood pressure screening: Patient was found to have a slightly elevated blood pressure due to circumstances. I do not believe that the patient requires hypertension monitoring. Problem List Medical Problems: (1) Asthma Status: Chronic (2) Closed left fibular fracture Status: Resolved (3) Closed left tibial fracture Status: Resolved (4) Depression Status: Chronic (5) Facial pain, acute Status: Resolved (6) Headache Status: Resolved (7) Migraine Status: Chronic (8) MRSA (methicillin resistant Staphylococcus aureus) Status: Resolved (9) Nephrolithiasis Status: Resolved (10) URI (upper respiratory infection) Status: Resolved (11) Work related injury Status: Resolved Surgical Problems: (1) H/O wisdom tooth extraction Status: Resolved (2) Hx of tonsillectomy Status: Resolved (3) S/P thyroid biopsy Status: Resolved Current/Historical Medications Scheduled Acetaminophen (Tylenol Extra Strength), 1,000 MG PO Q8 Albuterol Inhaler (Ventolin Inhaler), 2 PUFFS INH QID PRN Bupropion Hcl (Bupropion Hcl Er), 200 MG PO BID Cholecalciferol (Vitamin D3), 1,000 UNITS PO DAILY Cyanocobalamin (Vitamin B-12), 1,000 MCG PO DAILY Escitalopram (Lexapro), 20 MG PO DAILY Gabapentin (Gabapentin), 300 MG PO TID Levonorgestrel (Iud) (Mirena), 20 MCG INT UTER CONTINOUS Levothyroxine Sodium (Levothyroxine Sodium), 50 MCG PO DAILY Oxycodone HCl (Oxycontin), 10 MG PO Q12 Tretinoin (Retin-A), 1 APPL TOP HS Scheduled PRN Acetamin/Butalbital/Caffeine (Fioricet), 1-2 TAB PO QID PRN for Headache Baclofen (Lioresal), 20 MG PO TID PRN for Muscle Spasms Clonazepam (Clonazepam), 0.25 MG PO BID PRN for Anxiety/Agitation Cyclobenzaprine HCl (Cyclobenzaprine HCl), 5 MG PO TID PRN for Muscle Spasms Oxycodone HCl (Oxycodone HCl), 5-10 MG PO Q4H PRN for Pain Oxycodone Immediate Rel Tab (Roxicodone Ir), 1-2 TAB PO Q4H PRN for Severe Pain Miscellaneous Medications Linaclotide (Linzess), 290 MG PO Allergies Coded Allergies: Citalopram (Verified Allergy, Unknown, thought changes, 12/01/15) TOLD TO NEVER TAKE IT Latex (Verified Allergy, Unknown, hives ,rash, 12/01/15) pt [place] (Verified Allergy, Unknown, Uknown, 03/18/16) Vital Signs Date Time Temp Pulse Resp B/P (MAP) Pulse Ox O2 Delivery O2 Flow Rate FiO2 06/28/17 20:25 36.7 102 18 143/92 98 06/28/17 17:52 36.7 102 18 143/92 98 Room Air Medications Administered Medications (Trade) Dose Ordered Sig/[place] Route Start Time Stop Time Status Last Admin Dose Admin Ketorolac Tromethamine (Toradol Inj) 60 mg NOW STAT IM 06/28/17 19:13 06/28/17 19:15 DC 06/28/17 19:24 60 MG Ondansetron HCl (Zofran Odt) 4 mg ONE ONCE PO 06/28/17 19:15 06/28/17 19:16 DC 06/28/17 19:25 4 MG Morphine Sulfate (MoRPHine SULFATE INJ) 6 mg NOW STAT IM 06/28/17 19:13 06/28/17 19:15 DC 06/28/17 19:25 6 MG Diazepam (Valium Tab) 10 mg NOW STAT PO 06/28/17 19:13 06/28/17 19:15 DC 06/28/17 19:26 10 MG Departure Information Impression Primary Impression: Low back pain Prescriptions Baclofen (Lioresal) 20 Mg Tab 20 MG PO TID Y for Muscle Spasms, #30 TAB Prov: Shameka Vines PA 06/28/17 Oxycodone Immediate Rel Tab (ROXICODONE IR) 5 Mg Tab 1-2 TAB PO Q4H Y for Severe Pain, #20 TAB For Initial Treatment Prov: Shameka Vines PA 06/28/17 Referrals RV. Dumont MD (PCP) Patient Instructions [facility] Additional Instructions DO NOT drive, drink alcohol, operate machinery, or perform dangerous activities today. You were given medications in the ER that can affect your ability to safely function or operate a vehicle. Oxycodone (OxyIR) 5mg: Take 1-2 pills every four hours for breakthrough pain. Avoid alcohol, operating machinery or dangerous equipment, working on ladders or roofs, DRIVING, or situations where being under the influence may be dangerous. It is recommended to use an ediy-tfi-prjesvy stool softener such as Colace, 100mg twice daily while taking this medication to avoid constipation. Stop Flexeril. Baclofen: Ibuprofen(Motrin, Advil) may be used for fever or pain. Use 600mg every six hours as needed. Take with food. Avoid using more than 2400mg in a 24 hour period. Do not use 2400mg per day for more than three consecutive days without physician direction. Prolonged inappropriate use can lead to stomach upset or ulcers. This medication can be taken if you need to drive, work, or perform activities which may be dangerous when taking narcotic pain medication. (AND/OR) Acetaminophen(Tylenol) may be used for fever or pain. Use 1000mg every six hours as needed. Avoid using more than 3000mg in a 24 hour period. This medication can be taken if you need to drive, work, or perform activities which may be dangerous when taking narcotic pain medication. Rest and avoid heavy lifting until your symptoms resolve and then gradually return to full activity. A good rule of thumb is if it hurts your back to perform a certain activity, then it should be avoided until you are healthy again. A heating pad, warm compresses, or a hot shower may help with tight muscles and can be done several times a day as needed. Continue current medications. Return to the ER immediately for any numbness, tingling, severe pain, loss of control of your bowels or bladder, inability to walk, or as needed. Follow up with your primary care physician within 3-5 days for a recheck of your current condition. Problem Qualifiers Primary Impression: Low back pain Chronicity: acute Back pain laterality: left Sciatica presence: with sciatica Sciatica laterality: sciatica of left side Qualified Codes: M54.42 - Lumbago with sciatica, left side
[2017-06-28 20:25] VITALS: BP 143/92; PULSE 102; TEMP 36.7; O2SAT 98
[2017-06-29] MEDS ORDERED: AMT/50 PO (14:10)
[2017-06-29] MEDS ORDERED: WLLSR/200 PO (14:10)
[2017-06-29] MEDS ORDERED: KETO10TA PO (15:46)
[2017-06-29] MEDS ORDERED: PRED50TA PO (15:46)
[2017-06-29] MEDS ORDERED: DIAZ-165 PO (15:46)
== END 2017-06-28 20:26 | disposition home or self-care (01) ==
LOC: C.EDB 17:37 → C.EDD 20:26
DX: M54.5 Low back pain (principal); J45.909 Unspecified asthma, uncomplicated; Z91.040 Latex allergy status; Z91.018 Allergy to other foods; Z88.8 Allergy status to other drugs, medicaments and biological substances

== ENCOUNTER 2017-06-29 12:17 | Emergency (ER) | payer BC ==
[~2017-06-29] VITALS: Ht 157.5 cm; Wt 84.0 kg
[~2017-06-29 12:17] MED LIST changes: +BACL20TA PO; +OXYC1TAB3 PO
[2017-06-29 12:36] VITALS: TEMP 36.7; Ht 157.5 cm; Wt 84.0 kg
[2017-06-29] MEDS ORDERED: ONDANSETRON 4MG OD TAB PO STA (13:41)
[2017-06-29] MEDS ORDERED: MoRPHine SULFATE 10 MG/ML CARP/VIAL IM STA (13:41)
[2017-06-29] MEDS ORDERED: DEXAMETHASONE SOD INJ 4 MG/ML VIAL IM STA (13:41)
[2017-06-29] MEDS ORDERED: DIAZEPAM 5MG TAB PO ONE (13:45)
[2017-06-29] MEDS ORDERED: KETOROLAC TROMETHAMINE 60 MG/2 ML VIAL IM ONE (13:45)
--- NOTE | 2017-06-29 13:56 | EMERGENCY ROOM VISIT NOTE ---
History First contact with patient: 12:52 Chief Complaint: BACK PAIN Stated Complaint: MUSCLE SPASMS LOWER BACK TO L LEG,CANT FEEL L FOOT History of Present Illness The patient is a 36 year old female who presents to the Emergency Room with complaints of severe pain in the lower back radiating down the left leg. The patient has a history of chronic back pain. She denies any recent traumatic injury. The patient noticed her back pain was getting worse after a long car ride over [facility]. The patient was seen and examined in the emergency department last night. She received pain medications in the emergency department. She had felt much better. When she woke up this morning, the pain had returned and is worse. The patient tried the oxycodone and muscle relaxant prescribed with minimal relief. She now is reporting some muscle spasms in the lateral aspect of her left leg. She also reports numbness and tingling. This is however not new. No urinary or bowel incontinence. No saddle paresthesias Review of Systems 6 system review negative. Please see pertinent positives in the history of present illness section. Past Medical/Surgical History Medical Problems: (1) Asthma (2) Closed left fibular fracture (3) Closed left tibial fracture (4) Depression (5) Facial pain, acute (6) Headache (7) Migraine (8) MRSA (methicillin resistant Staphylococcus aureus) (9) Nephrolithiasis (10) URI (upper respiratory infection) (11) Work related injury Surgical Problems: (1) H/O wisdom tooth extraction (2) Hx of tonsillectomy (3) S/P thyroid biopsy Family History Cancer Diabetes mellitus Hypertension Kidney disease Kidney stones Social History Smoking Status: Never Smoker Alcohol Use: occasionally Marital Status: Occupation Status: employed Current/Historical Medications Scheduled Albuterol Inhaler (Ventolin Inhaler), 2 PUFFS INH QID PRN Amitriptyline HCl (Amitriptyline HCl), 50 MG PO HS Bupropion Hcl (Bupropion Hcl Er), 200 MG PO BID Bupropion Hcl (Wellbutrin Sr), 200 MG PO BID Cholecalciferol (Vitamin D3), 1,000 UNITS PO DAILY Cyanocobalamin (Vitamin B-12), 1,000 MCG PO DAILY Diazepam (Valium), 5 MG PO TID Gabapentin (Gabapentin), 300 MG PO TID Ketorolac Tromethamine (Toradol), 10 MG PO TID Levonorgestrel (Iud) (Mirena), 20 MCG INT UTER CONTINOUS Levothyroxine Sodium (Levothyroxine Sodium), 50 MCG PO DAILY Prednisone (Prednisone), 50 MG PO DAILY Scheduled PRN Acetamin/Butalbital/Caffeine (Fioricet), 1-2 TAB PO QID PRN for Headache Baclofen (Lioresal), 20 MG PO TID PRN for Muscle Spasms Oxycodone Immediate Rel Tab (Roxicodone Ir), 1-2 TAB PO Q4H PRN for Severe Pain Miscellaneous Medications Linaclotide (Linzess), 290 MG PO Physical Exam Vital Signs Date Time Temp Pulse Resp B/P (MAP) Pulse Ox O2 Delivery O2 Flow Rate FiO2 06/29/17 16:55 80 19 112/79 99 Room Air 06/29/17 16:05 90 20 118/84 98 Room Air 06/29/17 14:15 97 20 123/81 98 Room Air 06/29/17 12:36 36.7 106 16 128/88 98 Room Air Physical Exam VITALS: Vitals are noted on the nurse's note and reviewed by myself. Vital signs stable. GENERAL: 36-year-old female, in moderate discomfort, SKIN: The skin was without rashes, erythema, edema, or bruising. Capillary reflex less than 2 seconds. HEAD: Normocephalic atraumatic. MUSCULOSKELETAL: Mild tenderness to palpation over the lower lumbar spinous processes. Tenderness over the SI joint. Positive right-sided straight leg test. Sensation in lower extremities is intact, but subjectively more dull over the lateral aspect of the left leg. DP pulse +2 bilaterally. Strength with hip flexion is decreased bilaterally secondary to pain. Some difficulty with dorsiflexion and plantarflexion of the left foot NEURO: Patient was alert and oriented to person place and time. Other findings as noted above Medical Decision & Procedures Medications Administered Medications (Trade) Dose Ordered Sig/Roslyn Route Start Time Stop Time Status Last Admin Dose Admin Ketorolac Tromethamine (Toradol Inj) 60 mg ONE ONCE IM 06/29/17 13:45 06/29/17 13:46 DC 06/29/17 13:45 60 MG Morphine Sulfate (MoRPHine SULFATE INJ) 8 mg NOW STAT IM 06/29/17 13:41 4/19/18 13:42 DC 06/29/17 14:09 8 MG Diazepam (Valium Tab) 10 mg NOW ONCE PO 06/29/17 13:45 06/29/17 13:46 DC 06/29/17 14:10 10 MG Ondansetron HCl (Zofran Odt) 4 mg NOW STAT PO 06/29/17 13:41 06/29/17 13:42 DC 06/29/17 14:06 4 MG Dexamethasone Sodium Phosphate (Decadron Inj) 10 mg NOW STAT IM 06/29/17 13:41 06/29/17 13:42 DC 06/29/17 14:10 10 MG ED Course The patient was seen and examined She was medicated with morphine 8 mg, Toradol 60 mg, Decadron 10 mg IM. She was also given Valium 10 mg and Zofran p.o. 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 The patient has a history of chronic back pain and DJD. She was seen in the emergency department last night. She had excellent symptomatic relief prior to departure. Her symptoms returned this morning. On exam, she was neurovascularly intact. She had difficulty with dorsiflexion and plantarflexion of the left foot, however the patient has had surgery on this ankle. This is likely somewhat chronic in nature. The patient has no saddle paresthesias, urinary or bowel incontinence. I do not suspect cauda equina syndrome. The patient had good symptomatic relief in the emergency department. To her current regimen, I added Valium for muscle relaxation in addition to a course of steroids. She was comfortable with this plan. She will follow-up with her primary care physician and chiropractor. She will return with any new or concerning symptoms This chart was completed in part utilizing [employer] Voice Recognition software. Attempts were made to minimize the grammatical errors, random word insertions, pronoun errors and incomplete sentences. Any formal questions or concerns about the content, text or information contained within the body of this dictation should be directly addressed to the provider for clarification. Impression Primary Impression: Acute exacerbation of chronic low back pain Departure Information Dispostion Home / Self-Care Condition [employer]IENCE OF [employer] Prescriptions Ketorolac Tromethamine (TORADOL) 10 Mg Tab 10 MG PO TID, #15 TAB Prov: Madeline Tilley PA-C 06/29/17 Diazepam (Valium) 5 Mg Tab 5 MG PO TID for Muscle Spasms, #15 TAB Prov: Madeline Tilley PA-C 06/29/17 Prednisone (Prednisone) 50 Mg Tab 50 MG PO DAILY for 5 Days, #5 TAB Prov: Madeline Tilley PA-C 06/29/17 Referrals RV. Dumont MD (PCP) Patient Instructions My [facility] Additional Instructions You were evaluated in the emergency department for back pain Please continue current medications as prescribed Please take Toradol 1 tab every 8 hours for pain Please take the entire course of prednisone Please take Valium 1 tab every 8 hours as needed for muscle spasms Follow-up with your primary care physician and also your chiropractor Please do not hesitate to return to the emergency department with any new, worsening or concerning symptoms It was a pleasure participating in your care today Work Instructions Return To Work: 2 days
[2017-06-29] MEDS ORDERED: WLLSR/200 PO (14:10)
[2017-06-29] MEDS ORDERED: AMT/50 PO (14:10)
[2017-06-29] MEDS ORDERED: PRED50TA PO (15:46)
[2017-06-29] MEDS ORDERED: KETO10TA PO (15:46)
[2017-06-29] MEDS ORDERED: DIAZ-165 PO (15:46)
[2017-06-29 16:55] VITALS: BP 112/79; PULSE 80; O2SAT 99
== END 2017-06-29 16:59 | disposition home or self-care (01) ==
LOC: C.EDB 12:19 → C.EDD 16:59
DX: M54.16 Radiculopathy, lumbar region (principal); G89.29 Other chronic pain; J45.909 Unspecified asthma, uncomplicated; Z97.5 Presence of (intrauterine) contraceptive device; Z79.899 Other long term (current) drug therapy; Z83.3 Family history of diabetes mellitus; Z82.49 Family history of ischemic heart disease and other diseases of the circulatory system; Z84.1 Family history of disorders of kidney and ureter

== ENCOUNTER 2017-07-01 19:07 | Inpatient (IN) | payer BC ==
[~2017-07-01] VITALS: Ht 157.5 cm; Wt 83.0 kg
[~2017-07-01 19:07] MED LIST changes: -ACET-1138 PO; +AMT/50 PO; +DIAZ-165 PO; -ESCI10TA17 PO; -FLX/5 PO; +KETO10TA PO; -KLN5X PO; -OXYSR/10 PO; +PRED50TA PO; -RXC5 PO; -TRET15GE TOP; +WLLSR/200 PO
[2017-07-01] MEDS ORDERED: DIAZEPAM INJ 5 MG/ML 2 ML CARP IM STA (19:40)
[2017-07-01] MEDS ORDERED: MoRPHine SULFATE 10 MG/ML CARP/VIAL IM STA (19:40)
--- NOTE | 2017-07-01 20:31 | EMERGENCY ROOM VISIT NOTE ---
ED Visit Note First contact with patient: 19:26 CHIEF COMPLAINT: Low back pain HISTORY OF PRESENT ILLNESS: This 36-year-old female patient presents to the emergency department via EMS complaining of pain in the low back that is radiating down her left leg. Patient states that she has history of chronic back pain, but she has been having a flare of her low back pain for the past 5 days, she has been seen in the emergency department twice for this and was treated with medications. She states that she seems to be improving on the medications until today. She states she went in to the bathroom and started to move her bowels, she developed a severe worsening pain and felt a "snap" in her lower back when she stood up and had severe radiating pain down her left leg. She states that she has had increased weakness and numbness in the leg for the past few days that got especially terrible today. She states that she has been unable to walk today due to pain and weakness in the leg. The patient notes the pain as burning and sharp and a 8/10. The patient has taken oxycodone, Toradol, and Valium with no relief of the pain. She has also been taking prednisone for the past few days. The patient denies any loss of control of their bowel or bladder functions, but does note that she has felt like she needed to "push the urine out." No nausea or vomiting or abdominal pain. No chest pain or shortness of breath. The patient has not had prior back surgery. No dysuria or increased urinary frequency. She denies any saddle numbness. REVIEW OF SYSTEMS: A complete 10 point review of systems was reviewed with the patient with pertinent positives and negatives as per history of present illness. All else were negative. ALLERGIES: Reviewed in chart. MEDICATIONS: Reviewed in chart. PMH: Reviewed in chart. SOCIAL HISTORY: Lives at home with her . Denies tobacco use. PHYSICAL EXAM: VITALS: Vitals are noted on the nurse's note and reviewed by myself. Vital signs stable. GENERAL: Pleasant and cooperative, in no acute distress but appears to be in pain. Non-diaphoretic, well-developed well-nourished. SKIN: The skin was without rashes, erythema, edema, or bruising. Capillary refill less than 2 seconds. NECK: Supple without nuchal rigidity. No cervical spine tenderness. No paraspinous muscle tenderness. HEART: Regular rate and rhythm without murmurs gallops or rubs. LUNGS: Clear to auscultation bilaterally without wheezes, rales or rhonchi. ABDOMEN: Positive bowel sounds x 4. Normal tympanic percussion. Soft, nontender, without masses or organomegaly. Rosado sign negative. MUSCULOSKELETAL: No muscle atrophy, erythema, or edema noted of the back. There is midline tenderness over the lumbar spinous processes. There is significant tenderness over the paraspinous muscles on the left. There is no midline tenderness over the thoracic spine or paraspinous muscles. There are left-sided muscle spasms present. The patient is slow to move around with maximum tenderness with bending at the waist. Positive left-sided straight leg raise test. NEURO: Patient was alert and oriented to person place and time. Patient is able to differentiate sharp and dull in the right lower extremity, but unable to differentiate in the left lower extremity along the lateral aspect of the foot, calf, and thigh. Normal sensation to light and sharp touch. Deep tendon reflexes 1+ in the left lower extremity, 2+ in the right lower extremity. Dorsalis pedis pulse 2+ bilaterally. Strength 4/5 in the left lower extremity with minimal strength against resistance, 5/5 and normal in the right lower extremity. ED COURSE AND MEDICAL DECISION MAKING: CC: Patient presenting with complaint of low back pain, left leg weakness and numbness DIFFERENTIAL DIAGNOSIS: Includes, but not limited to lumbar strain, sprain, lumbar radiculopathy, sciatica, disc herniation, vertebral fracture, cauda equina, among others. IMAGING: MRI OF THE LUMBAR SPINE WITHOUT IV CONTRAST CLINICAL HISTORY: Low back pain. COMPARISON STUDY: MRI of the lumbar spine dated 11/09/2014. TECHNIQUE: MRI of lumbar spine is performed utilizing various T1 and T2-weighted sequences in the axial and sagittal planes. IV contrast was not administered for this examination. FINDINGS: Lumbar spine: Vertebral body height and alignment are maintained throughout the lumbar spine. Normal marrow signal intensity is preserved throughout the visualized bony structures. The transverse and spinous processes are intact as imaged. There is no evidence of spondylolysis. No destructive bony lesion is seen. Intervertebral discs: Mild degenerative disc desiccation is seen from L3 -L4 through L5-S1. Mild loss of height is seen at L4-L5. Spinal cord: The visualized spinal cord is normal in morphology and signal intensity. The conus medullaris terminates at the level of L1. The nerve roots of the cauda equina are normal in morphology. L1-L2: Unremarkable. L2-L3: Unremarkable. L3-L4: There is minimal posterior disc bulge with annular fissure. The central canal and neural foramina are patent. L4-L5: There is a disc herniation eccentric to left with an inferiorly extruded fragment. The fragment measures at least 2.0 cm and impinges on the left-sided nerve roots. There is minimal acquired compromise of the central canal at this level with a minimum AP diameter of 8 mm. The neural foramina are patent. L5-S1: There is minimal posterior disc bulge with annular fissure. The central canal and neural foramina are patent. Sacrum: The visualized sacrum is normal in morphology and signal intensity. Soft tissues: The paraspinous soft tissues are normal in appearance. The partially imaged retroperitoneal structures are grossly unremarkable but incompletely assessed. IMPRESSION: 1. There is a disc herniation eccentric to the left at L4-L5 with a large inferiorly extruded fragment. This impinges on the transiting left-sided nerve roots and causes mild acquired compromise of the central canal. This is new from 10/23/2014. 2. Mild degenerative disc disease at additional levels as above. See discussion for level by level analysis. 3. No destructive bony process is identified. MEDICATION RECONCILIATION: I attest that I have personally reviewed the patient 's current medication list. INITIAL VITAL SIGNS REVIEW: I reviewed the patient's initial vital signs and interpret them as follows: T: Afebrile; BP: Hypertensive; HR: Tachycardic; RR : Within normal; Pulse Ox: Within normal limits on room air. Blood pressure screening: The patient was found to have an elevated blood pressure, which was felt to be situational. SUMMARY: Patient was evaluated at bedside, history and physical exam performed. Patient is alert and oriented, in no acute distress but in obvious pain, resting the stretcher. Patient has midline tenderness of the lumbar spine as well as left lumbar paraspinous muscle tenderness and spasm noted. There is decreased sensation and decreased motor function of the left lower extremity when compared to the right. Positive straight leg raise on the left. Reviewed the patient's chart, noting her most recent lumbar spine MRI was about 3 years ago. Given that the patient has had progressively and acutely worsening symptoms, now with increasing weakness and sensory changes of left leg, I feel the patient warrants an MRI of her lumbar spine. Orders were placed at bedside for IM Valium and morphine to treat pain. Patient discussed with Dr. Varela, who agrees with my assessment and plan. Patient unable to urinate, nursing performed bladder scan noting >600mL in the bladder, concerning for development of urinary retention. Malik catheter ordered. MRI findings as above, concerning for impingement of the left-sided nerve roots at L4-L5 with mild acquired compromise of the central canal, which appears to be new from previous MRI. I spoke with Dr. Kang, Ortho-Spine, regarding the patient's symptoms, exam, and MRI findings. He agrees that the patient should be admitted for pain control, and he will see her in the am for further management. I spoke with Dr. Lynch, hospitalist service, who declined to admit the patient. I then called and spoke with Dr. Kang again, who agrees to admit the patient himself. Patient reassessed multiple times throughout ED stay, her pain has been well controlled with morphine. Patient was updated on all results and plan for admission, she verbalized understanding and was agreeable to this plan. Problem List Medical Problems: (1) Asthma Status: Chronic (2) Closed left fibular fracture Status: Resolved (3) Closed left tibial fracture Status: Resolved (4) Depression Status: Chronic (5) Facial pain, acute Status: Resolved (6) Headache Status: Resolved (7) Migraine Status: Chronic (8) MRSA (methicillin resistant Staphylococcus aureus) Status: Resolved (9) Nephrolithiasis Status: Resolved (10) URI (upper respiratory infection) Status: Resolved (11) Work related injury Status: Resolved Surgical Problems: (1) H/O wisdom tooth extraction Status: Resolved (2) Hx of tonsillectomy Status: Resolved (3) S/P thyroid biopsy Status: Resolved Current/Historical Medications Scheduled Albuterol Inhaler (Ventolin Inhaler), 2 PUFFS INH QID PRN Amitriptyline HCl (Amitriptyline HCl), 50 MG PO HS Bupropion Hcl (Bupropion Hcl Er), 200 MG PO BID Bupropion Hcl (Wellbutrin Sr), 200 MG PO BID Cholecalciferol (Vitamin D3), 1,000 UNITS PO DAILY Cyanocobalamin (Vitamin B-12), 1,000 MCG PO DAILY Diazepam (Valium), 5 MG PO TID Gabapentin (Gabapentin), 300 MG PO TID Ketorolac Tromethamine (Toradol), 10 MG PO TID Levonorgestrel (Iud) (Mirena), 20 MCG INT UTER CONTINOUS Levothyroxine Sodium (Levothyroxine Sodium), 50 MCG PO DAILY Prednisone (Prednisone), 50 MG PO DAILY Scheduled PRN Acetamin/Butalbital/Caffeine (Fioricet), 1-2 TAB PO QID PRN for Headache Oxycodone Ir (Roxicodone Ir), 1-2 TAB PO Q4H PRN for Severe Pain Miscellaneous Medications Linaclotide (Linzess), 290 MG PO Allergies Coded Allergies: Citalopram (Verified Allergy, Unknown, thought changes, 06/29/17) TOLD TO NEVER TAKE IT Latex (Verified Allergy, Unknown, hives ,rash, 06/29/17) pt [place] (Verified Allergy, Unknown, Uknown, 06/29/17) Vital Signs Date Time Temp Pulse Resp B/P (MAP) Pulse Ox O2 Delivery O2 Flow Rate FiO2 07/02/17 00:07 36.8 95 20 129/90 98 Room Air 07/01/17 22:00 94 17 98 Room Air 07/01/17 19:12 36.6 99 18 169/127 96 Room Air Medications Administered Medications (Trade) Dose Ordered Sig/Roslyn Route Start Time Stop Time Status Last Admin Dose Admin Morphine Sulfate (MoRPHine SULFATE INJ) 8 mg NOW STAT IM 07/01/17 19:40 07/01/17 19:42 DC 07/01/17 21:30 8 MG Diazepam (Valium Inj) 10 mg NOW STAT IM 07/01/17 19:40 07/01/17 19:42 DC 07/01/17 20:20 10 MG Morphine Sulfate (MoRPHine SULFATE INJ) 4 mg NOW STAT IV 07/01/17 21:46 07/01/17 21:48 DC 07/01/17 21:59 4 MG Morphine Sulfate (MoRPHine SULFATE INJ) 4 mg NOW STAT IV 07/01/17 23:23 07/01/17 23:24 DC 07/01/17 23:29 4 MG Departure Information Impression Primary Impression: Lumbar radiculopathy, acute Additional Impressions: Lumbar nerve root compression Acute urinary retention Dispostion Being Evaluated By Surgeon Condition FAIR Referrals RV. Dumont MD (PCP) Patient Instructions My [facility] Problem Qualifiers
[2017-07-01] MEDS ORDERED: MoRPHine SULFATE 4 MG/ML 1 ML CARP\\VIAL IV STA ×2 (21:46→23:23)
[2017-07-01] MEDS ORDERED: DIAZ-165 PO (23:07)
[2017-07-01] MEDS ORDERED: KETO10TA PO (23:24)
[2017-07-01] MEDS ORDERED: OXYC1TAB3 PO (23:26)
[2017-07-01] MEDS ORDERED: PRED50TA PO (23:28)
--- NOTE | 2017-07-01 23:30 | DIAGNOSTIC IMAGING REPORT ---
MRI OF THE LUMBAR SPINE WITHOUT IV CONTRAST CLINICAL HISTORY: Low back pain. COMPARISON STUDY: MRI of the lumbar spine dated 11/09/2014. TECHNIQUE: MRI of lumbar spine is performed utilizing various T1 and T2-weighted sequences in the axial and sagittal planes. IV contrast was not administered for this examination. FINDINGS: Lumbar spine: Vertebral body height and alignment are maintained throughout the lumbar spine. Normal marrow signal intensity is preserved throughout the visualized bony structures. The transverse and spinous processes are intact as imaged. There is no evidence of spondylolysis. No destructive bony lesion is seen. Intervertebral discs: Mild degenerative disc desiccation is seen from L3 -L4 through L5-S1. Mild loss of height is seen at L4-L5. Spinal cord: The visualized spinal cord is normal in morphology and signal intensity. The conus medullaris terminates at the level of L1. The nerve roots of the cauda equina are normal in morphology. L1-L2: Unremarkable. L2-L3: Unremarkable. L3-L4: There is minimal posterior disc bulge with annular fissure. The central canal and neural foramina are patent. L4-L5: There is a disc herniation eccentric to left with an inferiorly extruded fragment. The fragment measures at least 2.0 cm and impinges on the left-sided nerve roots. There is minimal acquired compromise of the central canal at this level with a minimum AP diameter of 8 mm. The neural foramina are patent. L5-S1: There is minimal posterior disc bulge with annular fissure. The central canal and neural foramina are patent. Sacrum: The visualized sacrum is normal in morphology and signal intensity. Soft tissues: The paraspinous soft tissues are normal in appearance. The partially imaged retroperitoneal structures are grossly unremarkable but incompletely assessed. IMPRESSION: 1. There is a disc herniation eccentric to the left at L4-L5 with a large inferiorly extruded fragment. This impinges on the transiting left-sided nerve roots and causes mild acquired compromise of the central canal. This is new from 10/23/2014. 2. Mild degenerative disc disease at additional levels as above. See discussion for level by level analysis. 3. No destructive bony process is identified. Electronically signed by: Anastacio Walton M.D. 07/01/2017 11:29 PM Dictated Date/Time: 07/01/2017 10:55 PM
[2017-07-02] MEDS ORDERED: NURSING VERBAL MED ORDER ONE ×2 (01:15→01:30)
[2017-07-02] MEDS ORDERED: LORAZEPAM 2 MG/ML 1 ML VIAL IV PRN (01:45)
[2017-07-02] MEDS ORDERED: LORAZEPAM INJ 1 MG in SYRINGE 0.5 ML IV PRN (01:45)
[2017-07-02] MEDS ORDERED: ALBUTEROL HFA 8 GM INHALER INH PRN (02:00)
--- NOTE | 2017-07-02 02:01 | Medical Consult ---
Consultation Date of Consultation: Jul 02, 2017. Attending Physician: Past Medical/Surgical History Medical Problems: (1) Acute urinary retention Status: Acute (2) Asthma Status: Chronic (3) Back pain Status: Acute (4) Depression Status: Chronic (5) Low back pain Status: Acute (6) Lumbar nerve root compression Status: Acute (7) Lumbar radiculopathy, acute Status: Acute (8) Migraine Status: Chronic Social History Problems: (1) S/P thyroid biopsy Status: Acute Family History Cancer Diabetes mellitus Hypertension Kidney disease Kidney stones Social History Smoking Status: Never Smoker Marital Status: Occupation Status: employed Allergies Coded Allergies: Citalopram (Verified Allergy, Unknown, thought changes, 06/29/17) TOLD TO NEVER TAKE IT Latex (Verified Allergy, Unknown, hives ,rash, 06/29/17) pt [place] (Verified Allergy, Unknown, Uknown, 06/29/17) Current Inpatient Medications Current Inpatient Medications Medications (Trade) Dose Ordered Sig/[place] Route Start Time Stop Time Status Last Admin Dose Admin Hydromorphone HCl (Dilaudid Inj) 1 mg Q2H PRN IV 07/02/17 01:45 07/16/17 01:44 Sodium Chloride 1,000 ml @ 100 mls/hr Q10H IV 07/02/17 01:45 08/01/17 01:44 Lorazepam 1 mg/ Syringe 1 ml @ 1 mls/min Q6H PRN IV 07/02/17 01:45 08/01/17 01:44 Lorazepam (Ativan Inj) 1 mg Q6H PRN IV 07/02/17 01:45 08/01/17 01:44 Review of Systems Constitutional: No fever, No chills Eyes: No worsening of vision ENT: No hearing loss Respiratory: No cough Cardiovascular: No chest pain, No orthopnea Abdomen: No pain, No nausea, No vomiting Musculoskeletal: + joint pain (lower back pain raditaing to LLE) Genitourinary - Female: + urinary retention, No dysuria, No urinary frequency Neurologic: + numbness/tingling (left lower extremity), No memory loss Psychiatric: No depression symptoms Endocrine: No fatigue Hematologic / Lymphatic: No abnormal bleeding/bruising Physical Exam Date Time Temp Pulse Resp B/P (MAP) Pulse Ox O2 Delivery O2 Flow Rate FiO2 4/22/18 01:30 90 20 147/90 98 Room Air 07/02/17 00:07 36.8 95 20 129/90 98 Room Air 07/01/17 22:00 94 17 98 Room Air 07/01/17 19:12 36.6 99 18 169/127 96 Room Air General Appearance: WD/WN, no apparent distress ENT: hearing grossly normal Neck: supple Respiratory/Chest: lungs clear, normal breath sounds, no respiratory distress Cardiovascular: + tachycardia Abdomen/GI: normal bowel sounds, non tender, soft Extremities/Musculoskelatal: + pertinent finding (LLE neurovasculary intact. painful ROM) Neurologic/Psych: alert, normal mood/affect, oriented x 3 Laboratory Results MRI OF THE LUMBAR SPINE WITHOUT IV CONTRAST CLINICAL HISTORY: Low back pain. COMPARISON STUDY: MRI of the lumbar spine dated 11/09/2014. TECHNIQUE: MRI of lumbar spine is performed utilizing various T1 and T2-weighted sequences in the axial and sagittal planes. IV contrast was not administered for this examination. FINDINGS: Lumbar spine: Vertebral body height and alignment are maintained throughout the lumbar spine. Normal marrow signal intensity is preserved throughout the visualized bony structures. The transverse and spinous processes are intact as imaged. There is no evidence of spondylolysis. No destructive bony lesion is seen. Intervertebral discs: Mild degenerative disc desiccation is seen from L3 -L4 through L5-S1. Mild loss of height is seen at L4-L5. Spinal cord: The visualized spinal cord is normal in morphology and signal intensity. The conus medullaris terminates at the level of L1. The nerve roots of the cauda equina are normal in morphology. L1-L2: Unremarkable. L2-L3: Unremarkable. L3-L4: There is minimal posterior disc bulge with annular fissure. The central canal and neural foramina are patent. L4-L5: There is a disc herniation eccentric to left with an inferiorly extruded fragment. The fragment measures at least 2.0 cm and impinges on the left-sided nerve roots. There is minimal acquired compromise of the central canal at this level with a minimum AP diameter of 8 mm. The neural foramina are patent. L5-S1: There is minimal posterior disc bulge with annular fissure. The central canal and neural foramina are patent. Sacrum: The visualized sacrum is normal in morphology and signal intensity. Soft tissues: The paraspinous soft tissues are normal in appearance. The partially imaged retroperitoneal structures are grossly unremarkable but incompletely assessed. IMPRESSION: 1. There is a disc herniation eccentric to the left at L4-L5 with a large inferiorly extruded fragment. This impinges on the transiting left-sided nerve roots and causes mild acquired compromise of the central canal. This is new from 10/23/2014. 2. Mild degenerative disc disease at additional levels as above. See discussion for level by level analysis. 3. No destructive bony process is identified. Electronically signed by: Anastacio Walton M.D. 07/01/2017 11:29 PM Dictated Date/Time: 07/01/2017 10:55 PM
[2017-07-02] MEDS ORDERED: IV FLUIDS COMPLETED PRN (02:15)
[2017-07-02 02:23] VITALS: BP 147/97; PULSE 94; TEMP 36.5; O2SAT 97; Ht 157.5 cm; Wt 83.0 kg
[2017-07-02] MEDS: HYDROmorphone INJ 2 MG/ML SYR/VIAL IV PRN ×4 (02:26→23:59)
[2017-07-02] MEDS: SODIUM CHLORIDE 0.9% 1000ML 1,000 ML IV SCH ×2 (02:33→12:10)
[2017-07-02] MEDS ORDERED: ACETAMINOPHEN 325 MG TAB PO PRN (05:30)
[2017-07-02] MEDS ORDERED: POLYETHYLENE (MIRALAX) 17 GM PACK PO PRN (05:30)
[2017-07-02] MEDS ORDERED: ONDANSETRON INJ 2 MG/ML 2 ML VIAL IV PRN ×2 (05:30→09:30)
[2017-07-02] MEDS ORDERED: MAGNESIUM HYDROXIDE SUSP 30 ML UDC PO PRN (05:30)
[2017-07-02] MEDS ORDERED: DEXAMETHASONE INJ 10 MG in SYRINGE 0 ML IV STA (05:33)
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
[2017-07-02] MEDS: LEVOTHYROXINE 50 MCG TAB PO SCH (05:49)
[2017-07-02 06:25] LABS: BASO % 0.3 %; BASO ABS # 0.03 K/uL (0-0.2); EOS % 0.4 %; EOS ABS # 0.04 K/uL (0-0.5); HEMATOCRIT 41.2 % (37-47); HEMOGLOBIN 14.2 g/dL (12.0-16.0); IG# 0.03 K/uL (0.00-0.02); LYMPH % 27.2 %; LYMPH ABS # 3.08 K/uL (1.2-3.4); MEAN CELL VOLUME 90.2 fL (80-100); MEAN CORPUSCULAR HEMOGLOBIN 31.1 pg (25-34); MEAN CORPUSCULAR HGB CONC 34.5 g/dl (32-36); MEAN PLATELET VOLUME 9.4 fL (7.4-10.4); MONO % 5.6 %; MONO ABS # 0.63 K/uL (0.11-0.59); NEUT % 66.2 %; NEUT ABS # 7.52 K/uL (1.4-6.5); PLATELET COUNT 228 K/uL (130-400); RED CELL DISTRIBUTION WIDTH CV 12.9 % (11.5-14.5); RED CELL DISTRIBUTION WIDTH SD 42.1 fL (36.4-46.3); WHITE BLOOD COUNT 11.33 K/uL (4.8-10.8)
[2017-07-02 07:09] LABS: CALCIUM 8.4 mg/dl (8.5-10.1); CREATININE 0.77 mg/dl (0.60-1.20); POTASSIUM 3.3 mmol/L (3.5-5.1)
[2017-07-02 07:30] VITALS: BP 132/92; PULSE 106; TEMP 36.4; O2SAT 96
[2017-07-02] MEDS ORDERED: KETOROLAC TROMETHAMINE 30 MG/ML VIAL IV PRN (08:45)
[2017-07-02] MEDS ORDERED: BuPROPion SR 100 MG TABCR PO SCH (09:00)
[2017-07-02] MEDS ORDERED: PROMETHAZINE HCL INJ 12.5 MG in SODIUM CHLORIDE 0.9% 50ML 50 ML IV PRN (09:30)
--- NOTE | 2017-07-02 10:06 | History and Physical ---
History & Physical Date Jul 02, 2017. Chief Complaint Back and left leg pain History of Present Illness The patient is a 36 year old female with complaints of significant back and left leg pain. Symptoms began approximately a week ago. She does have a long- standing history of back pain and management with a local chiropractor. Nevertheless for the past week she had worsening back pain extending down the left lower extremity. She had several visits to the emergency room for management. This did include oral narcotics as well as steroids. This was controlling her symptoms relatively well but had a marked decline yesterday. She returned to the hospital MRI obtained demonstrating a large disc herniation L4-5 with caudal migration. Today she states she has relatively comfortable when she is still. But the pain does emanate into the buttock posterior lateral thigh into the foot with activity. Right lower extremity is asymptomatic. She denies any perineal numbness or tingling. She denies loss of bowel control. The intermittent pain medicine is significantly improving her symptoms. She still has marked difficulty with sitting up and ambulation. Past Medical/Surgical History Medical Problems: (1) Asthma (2) Closed left fibular fracture (3) Closed left tibial fracture (4) Depression (5) Facial pain, acute (6) Headache (7) Lumbar disc herniation (8) Migraine (9) MRSA (methicillin resistant Staphylococcus aureus) (10) Nephrolithiasis (11) URI (upper respiratory infection) (12) Work related injury Surgical Problems: (1) H/O wisdom tooth extraction (2) Hx of tonsillectomy (3) S/P thyroid biopsy Additional History Hepatic Disease: No Endocrine Disorder: No Kidney Disease: No Hypertension: No Heart Disease: No Bleeding Tendencies: No Infectious Diseases: No Allergies Coded Allergies: Citalopram (Verified Allergy, Unknown, thought changes, 06/29/17) TOLD TO NEVER TAKE IT Latex (Verified Allergy, Unknown, hives ,rash, 06/29/17) pt [place] (Verified Allergy, Unknown, Uknown, 06/29/17) Home Medications Scheduled Albuterol Inhaler (Ventolin Inhaler), 2 PUFFS INH QID PRN Amitriptyline HCl (Amitriptyline HCl), 50 MG PO HS Bupropion Hcl (Bupropion Hcl Er), 200 MG PO BID Bupropion Hcl (Wellbutrin Sr), 200 MG PO BID Cholecalciferol (Vitamin D3), 1,000 UNITS PO DAILY Cyanocobalamin (Vitamin B-12), 1,000 MCG PO DAILY Diazepam (Valium), 5 MG PO TID Gabapentin (Gabapentin), 300 MG PO TID Ketorolac Tromethamine (Toradol), 10 MG PO TID Levonorgestrel (Iud) (Mirena), 20 MCG INT UTER CONTINOUS Levothyroxine Sodium (Levothyroxine Sodium), 50 MCG PO DAILY Prednisone (Prednisone), 50 MG PO DAILY Scheduled PRN Acetamin/Butalbital/Caffeine (Fioricet), 1-2 TAB PO QID PRN for Headache Oxycodone Ir (Roxicodone Ir), 1-2 TAB PO Q4H PRN for Severe Pain Miscellaneous Medications Linaclotide (Linzess), 290 MG PO Physical Examination Skin: warm/dry, no rash Eyes: normal inspection, EOMI, sclerae normal ENT: normal ENT inspection, pharynx normal Head: normocephalic, atraumatic Neck: supple, no adenopathy, trachea midline Respiratory/Chest: lungs clear, normal breath sounds, no respiratory distress Cardiovascular: regular rate, rhythm, no edema, no murmur Abdomen / GI: normal bowel sounds, non tender Back: normal inspection Extremities: normal inspection, normal range of motion Neurologic/Psych: no motor/sensory deficits, alert, normal reflexes, oriented x 3 Addiitonal Comments: On physical exam she appears comfortable at this time. She does have marked difficulty with rolling over and sitting up secondary to reproduction of the left leg radiculopathy. She has a healed incision over the left ankle from a fractured. She does have some deficit to dorsiflexion plantarflexion on the left at L4 over 5 however this could also be related to the ankle fracture and nonunion. She is full sensation to light touch and cold bilateral lower extremities. She has no perineal numbness to palpation. She has marked severe tension signs straight leg raising on the left. Diagnosis Herniated nucleus pulposus L4-5 with free fragment caudal migration on the left Plan of Treatment Plan a long discussion with this patient and her at the bedside. The MRI was reviewed in detail with the patient. She has evidence of a massive disc herniation L4-5 on the left with caudal migration. I discussed with the patient possible treatment options with which could include continued pain management epidural injections or ultimately surgical intervention. Surgery would require lumbar laminotomy L4-5 on the left with excision of herniated free fragment. I have acknowledged she does have degenerative disc disease but we would not proceed with any fusion. Risks benefits pros cons and alternatives were outlined in detail. Risks include but not limited to from anesthesia blindness stroke paralysis nerve damage blood loss current transfusion infection requiring reoperation benefits hopefully being marked improvement of her radiculopathy. At this point she and her will consider her options. I did explain I will place her on the schedule for tomorrow she certainly can change her mind but for now we will plan on surgery in the a.m.
[2017-07-02] MEDS: BACLOFEN 10 MG TAB PO SCH ×4 (10:17→20:27)
[2017-07-02] MEDS: GABAPENTIN 300 MG CAP PO SCH ×3 (10:18→20:28)
[2017-07-02] MEDS: CYANOCOBALAMIN 500 MCG TAB (VIT B-12) PO SCH (10:18)
[2017-07-02] MEDS: CHOLECALCIFEROL 1000 INTER.UNIT TAB PO SCH (10:18)
[2017-07-02] MEDS: BuPROPion SR 100 MG TABCR PO SCH ×2 (10:19→20:28)
[2017-07-02] MEDS ORDERED: POTASSIUM CHLORIDE 20 MEQ TABCR PO ONE (11:15)
--- NOTE | 2017-07-02 11:39 | Progress Note ---
Progress Note Date of Service Jul 02, 2017. Progress Note 36 yo female presented to hospital with worsening back pain with left LE neuropathic pain and urinary retention scheduled for Laminectomy. PMH is significant for exercise induced asthma, nephrolithiasis, depression, migraines , thyroid nodules and history of broken tibia requiring surgical repair at [place] this coming August. On exam patient has an adequate airway, clear lungs and RRR without murmurs/rubs/or gallops. Patient was consented for GA with ETT and instructed to remain NPO after midnight tonight. OK to take morning meds with a sip of water. Payal Hall MD, PhD Anesthesiology
[2017-07-02] MEDS: DEXAMETHASONE INJ 4 MG in SYRINGE 0 ML IV SCH ×3 (12:12→23:59)
[2017-07-02] MEDS: OXYCODONE HCL IR 5 MG TAB (IMMEDIATE RELEASE) PO PRN ×2 (13:27→20:07)
--- NOTE | 2017-07-02 14:00 | Progress Note ---
Progress Note Date of Service Jul 02, 2017. Progress Note Follow up note, patient seen at 500 this morning for consultation patient resting comfortably, pain is controlled as long as she lays still she saw Dr. Kang this morning, she agrees to get surgery tomorrow for disc herniation breathing comfortably decreased appetite 36-year-old female with a past medical history of chronic low back pain, migraine headaches, exercise-induced asthma presented to the ER with complaints of low back pain radiating down her left lower extremity which worsened today. Lumbar disc herniation MRI: -MRI spine revealed a disc herniation eccentric to the left at L4-L5 with a large inferiorly extruded fragment. This impinges on the transiting left-sided nerve roots and causes mild acquired compromise of the central canal. This is new from 10/23/2014. -continue Decadron 4 mg every 6 hours -Started on baclofen 10 mg p.o. -Pain controlled with Dilaudid as needed - Dr. Kang will take to OR tomorrow, patient has signed consent and met with anesthesia low surgical risk given young age and limited medical history Urinary retention: [place] placed in the ED for 600cc of urine likely due to disc herniation will d/c [place] after surgery Migraine headaches: -Continue Amitriptyline, gabapentin Depression: -Continue Wellbutrin Exercise-induced asthma: -Ventolin as needed Thyroid dysfunction -Synthroid Weight management Phentermine Full code Disposition: surgical floor, plan for OR tomorrow
[2017-07-02 14:54] VITALS: BP 139/90; PULSE 110; TEMP 36.6; O2SAT 95
[2017-07-02] MEDS: AMITRIPTYLINE HCL 50 MG TAB PO SCH (20:28)
[2017-07-02 23:01] VITALS: BP 130/85; PULSE 95; TEMP 36.6; O2SAT 97
[2017-07-02 23:30] VITALS: O2SAT 97
[2017-07-03] VITALS (8 sets, daily range): BP systolic 122–147; BP diastolic 82–95; PULSE 74–117; TEMP 36.3–36.8; O2SAT 96–99
[2017-07-03] MEDS: SODIUM CHLORIDE 0.9% 1000ML 1,000 ML IV SCH (01:34)
[2017-07-03] MEDS: DEXAMETHASONE INJ 4 MG in SYRINGE 0 ML IV SCH ×3 (05:58→17:28)
[2017-07-03] MEDS: LEVOTHYROXINE 50 MCG TAB PO SCH (05:58)
[2017-07-03] MEDS ORDERED: CEFAZOLIN IV 2,000 MG in SYRINGE 0 ML IV SCH (06:00)
[2017-07-03] MEDS ORDERED: CEFAZOLIN 2000MG IV PUSH 15 ML IV SCH (06:00)
[2017-07-03] MEDS ORDERED: MIDAZOLAM HCL 1 MG/ML 2ML VIAL ONE (06:40)
[2017-07-03] MEDS ORDERED: FENTANYL CITRATE INJ 50 MCG/1 ML 2 ML VIAL ONE ×4 (06:40→11:21)
[2017-07-03] MEDS ORDERED: EpHEDrine SULFATE INJ 50 MG/ML AMP IV PRN (08:45)
[2017-07-03] MEDS ORDERED: HYDROmorphone INJ 0.5 MG/0.5 ML SYR IV PRN (08:45)
[2017-07-03] MEDS ORDERED: PROMETHAZINE HCL INJ 6.25 MG in SODIUM CHLORIDE 0.9% 50ML 50 ML IV PRN (08:45)
[2017-07-03] MEDS ORDERED: ONDANSETRON INJ 2 MG/ML 2 ML VIAL IV PRN (08:45)
[2017-07-03] MEDS ORDERED: ATROPINE SULFATE 0.1 MG/ML 5ML SYR IV PRN (08:45)
[2017-07-03] MEDS: BACLOFEN 10 MG TAB PO SCH ×4 (09:00→20:39)
[2017-07-03] MEDS: GABAPENTIN 300 MG CAP PO SCH ×3 (09:00→20:38)
[2017-07-03 09:41] LABS: HEMATOCRIT 38.7 % (37-47); HEMOGLOBIN 13.8 g/dL (12.0-16.0); IG# 0.03 K/uL (0.00-0.02); LYMPH % 10.8 %; LYMPH ABS # 1.33 K/uL (1.2-3.4); MEAN CELL VOLUME 88.2 fL (80-100); MEAN CORPUSCULAR HEMOGLOBIN 31.4 pg (25-34); MEAN CORPUSCULAR HGB CONC 35.7 g/dl (32-36); MEAN PLATELET VOLUME 9.4 fL (7.4-10.4); MONO % 3.8 %; MONO ABS # 0.47 K/uL (0.11-0.59); NEUT % 85.2 %; NEUT ABS # 10.46 K/uL (1.4-6.5); PLATELET COUNT 228 K/uL (130-400); RED CELL DISTRIBUTION WIDTH CV 12.5 % (11.5-14.5); RED CELL DISTRIBUTION WIDTH SD 40.5 fL (36.4-46.3); WHITE BLOOD COUNT 12.29 K/uL (4.8-10.8)
--- NOTE | 2017-07-03 10:15 | History & Physical Bridge Note ---
H&P Re-Evaluation Bridge Note: I have examined the patient, reviewed the History & Physical and in the interval since the performance of the History & Physical I have noted the following changes of clinical significance: No changes noted plan is for lumbar decompression laminotomy L4-5
[2017-07-03 10:16] LABS: CALCIUM 8.2 mg/dl (8.5-10.1); CREATININE 0.65 mg/dl (0.60-1.20); POTASSIUM 4.1 mmol/L (3.5-5.1)
[2017-07-03] MEDS ORDERED: BUPIVACAINE/EPINEPHRINE 0.5% MPF 1:200,000 30 ML VIAL ONE (10:20)
[2017-07-03] MEDS ORDERED: BACITRACIN 50000 UNIT VIAL ONE (10:20)
[2017-07-03] MEDS ORDERED: HYDROmorphone INJ 2 MG/ML SYR/VIAL ONE ×2 (10:59→11:34)
[2017-07-03] MEDS ORDERED: FLOSEAL HEMOSTATIC MATRIX 10ML TOP ONE (11:28)
[2017-07-03] MEDS ORDERED: ONDANSETRON INJ 2 MG/ML 2 ML VIAL ONE (11:38)
[2017-07-03] MEDS ORDERED: ROCURONIUM BROMIDE 10 MG/ML 5 ML VIAL IV ONE (11:38)
[2017-07-03] MEDS ORDERED: NEOSTIGMINE METHYLSULFATE 1 MG/ML 10ML VIAL ONE (11:38)
[2017-07-03] MEDS ORDERED: LIDOCAINE HCL 2% 2 ML VIAL (20MG/ML) ONE (11:38)
[2017-07-03] MEDS ORDERED: DEXAMETHASONE SOD INJ 4 MG/ML VIAL ONE (11:38)
[2017-07-03] MEDS ORDERED: PROPOFOL IV EMULSION 10 MG/ML 20 ML VIAL IV ONE (11:38)
[2017-07-03] MEDS ORDERED: GLYCOPYRROLATE INJ 0.2 MG/ML VIAL ONE (11:38)
[2017-07-03] MEDS ORDERED: KETOROLAC TROMETHAMINE 30 MG/ML VIAL ONE (11:38)
--- NOTE | 2017-07-03 11:42 | [facility] Operative Report ---
Operative Report Operative Date Jul 03, 2017. Pre-Operative Diagnosis Herniated Nucleus Pulposus L4-L5 Post-Operative Diagnosis Herniated Nucleus Pulposus L4-L5 Procedure(s) Performed 1. Lumbar decompression L4-5 with medial facetectomies and excision of herniated free fragment. Surgeon Dr. Kang Audio Video Mechanic Surgeon(s) none Estimated Blood Loss 25 ml Findings Massive free fragments L4-5 Specimens none per surgeon Anesthesia Type General Description of Procedure Patient was met with preoperatively case discussed all questions addressed. After informed consent obtained patient was taken to the operative suite underwent intubation and placed in a prone position on the Prem table on top of the Davin frame. All bony prominences were well-padded eyes inspected to ensure no external pressure placed upon the. This point the lumbar spine was prepped and draped in the normal sterile fashion. Sharp dissection with the assistance of Bovie cautery was performed down to and exposing the L4-5 interlaminar space. Self retaining retractors placed. A midline decompression was then performed including medial facetectomy on the left. Was able to mobilize the left L5 nerve root medially and address several massive fragments of free discal material that had migrated caudally. There was explored several times to ensure all loose fragments addressed. After this complete the incision was copious irrigated a 10 round MARK drain inserted. Incision was then closed with 1 Vicryl fascia 2-0 Vicryl substantially 4 Monocryl for fashion closure Steri-Strips sterile dressings placed. Patient will continue to PACU stable condition. I attest to the content of the Intraoperative Record and any orders documented therein. Any exceptions are noted below.
[2017-07-03] MEDS ORDERED: DO NOT ADMINISTER PNEUMOCOCCAL VACCINE PRN (11:45)
[2017-07-03] MEDS ORDERED: LORAZEPAM INJ 1 MG in SYRINGE 0.5 ML IV PRN (11:45)
[2017-07-03] MEDS ORDERED: LORAZEPAM 1 MG TAB PO PRN (11:45)
[2017-07-03] MEDS ORDERED: MAGNESIUM HYDROXIDE SUSP 30 ML UDC PO PRN (11:45)
[2017-07-03] MEDS ORDERED: ACETAMINOPHEN 325 MG TAB PO PRN (11:45)
[2017-07-03] MEDS ORDERED: DO NOT ADMINISTER FLU VACCINE PRN (11:45)
[2017-07-03] MEDS ORDERED: ACETAMINOPHEN 500 MG TAB PO PRN (11:45)
[2017-07-03] MEDS ORDERED: ESMOLOL HCL 10 MG/ML 10 ML VIAL ONE (11:59)
[2017-07-03] MEDS: FENTANYL CITRATE INJ 50 MCG/1 ML 2 ML VIAL IV PRN ×4 (12:15→12:49)
[2017-07-03] MEDS ORDERED: NALBUPHINE HCL INJ 10 MG/ML AMP ONE (12:40)
[2017-07-03] MEDS ORDERED: NALBUPHINE HCL IV ONE (12:45)
--- NOTE | 2017-07-03 12:46 | DIAGNOSTIC IMAGING REPORT ---
SPINE ONE VIEW, ANY LEVEL CLINICAL HISTORY: L4-L5 laminectomy. COMPARISON STUDY: Lumbar spine MRI July 01, 2017. Fluoroscopy time: 2.5 seconds. FINDINGS: Single lateral fluoroscopic image demonstrates surgical retractors as well as a surgical instrument directed toward the posterior elements at the upper L5 level. IMPRESSION: Fluoroscopic image demonstrating intraoperative localization of the L4-L5 level. Electronically signed by: Juno Tineo M.D. 07/03/2017 12:44 PM Dictated Date/Time: 07/03/2017 12:43 PM
--- NOTE | 2017-07-03 13:24 | Anesthesiology Progress Note ---
Anesthesia Post Op Note Date & Time Jul 03, 2017 at 13:23 Vital Signs Pain Intensity: 5 Vital Signs Past 12 Hours Date Time Temp Pulse Resp B/P (MAP) Pulse Ox O2 Delivery O2 Flow Rate FiO2 07/03/17 13:12 66 10 100 07/03/17 13:12 67 10 07/03/17 13:11 153/95 07/03/17 13:07 67 13 99 07/03/17 13:07 66 13 07/03/17 13:06 144/94 07/03/17 13:02 66 10 100 07/03/17 13:02 66 10 07/03/17 13:01 154/97 07/03/17 12:57 65 17 07/03/17 12:57 63 17 100 07/03/17 12:56 137/87 07/03/17 12:54 36.8 73 17 144/94 (100) 100 Nasal Cannula 2 07/03/17 12:52 66 17 100 07/03/17 12:52 66 17 07/03/17 12:51 149/90 07/03/17 12:49 66 17 99 07/03/17 12:49 66 17 07/03/17 12:46 148/100 07/03/17 12:44 73 18 07/03/17 12:44 73 18 99 07/03/17 12:41 148/101 07/03/17 12:39 70 14 07/03/17 12:39 70 14 99 07/03/17 12:36 136/100 07/03/17 12:34 82 19 07/03/17 12:34 82 19 94 07/03/17 12:31 141/92 07/03/17 12:29 75 19 07/03/17 12:29 74 19 100 07/03/17 12:28 143/90 07/03/17 12:25 82 16 100 07/03/17 12:25 84 16 07/03/17 12:21 154/98 07/03/17 12:20 82 18 95 07/03/17 12:20 83 18 07/03/17 12:17 146/98 07/03/17 12:15 68 15 146/98 100 Oxymask 8 07/03/17 12:05 69 14 159/96 100 Oxymask 8 07/03/17 11:55 36.3 74 16 147/99 100 Oxymask 8 07/03/17 05:50 36.3 95 14 137/95 (109) 97 Room Air Notes Mental Status: alert / awake / arousable, participated in evaluation Pt Amnestic to Procedure: Yes Nausea / Vomiting: adequately controlled Pain: adequately controlled Airway Patency, RR, SpO2: stable & adequate BP & HR: stable & adequate Hydration State: stable & adequate Anesthetic Complications: no major complications apparent
[2017-07-03] MEDS: BuPROPion SR 100 MG TABCR PO SCH ×2 (14:19→20:38)
[2017-07-03] MEDS: CYANOCOBALAMIN 500 MCG TAB (VIT B-12) PO SCH (14:20)
[2017-07-03] MEDS: CHOLECALCIFEROL 1000 INTER.UNIT TAB PO SCH (14:20)
[2017-07-03] MEDS: KETOROLAC TROMETHAMINE 30 MG/ML VIAL IV. SCH ×2 (14:24→20:38)
[2017-07-03] MEDS: LACTATED RINGER'S 1000ML 1,000 ML IV SCH (14:24)
[2017-07-03] MEDS ORDERED: NALBUPHINE HCL INJ 10 MG/ML AMP IV PRN (14:30)
[2017-07-03] MEDS: OXYCODONE HCL IR 5 MG TAB (IMMEDIATE RELEASE) PO PRN (15:57)
[2017-07-03] MEDS: CEFAZOLIN IV 1,000 MG in SYRINGE 0 ML IV SCH (17:28)
[2017-07-03] MEDS: AMITRIPTYLINE HCL 50 MG TAB PO SCH (20:39)
[2017-07-03] MEDS: DOCUSATE SODIUM 100 MG CAP PO SCH (20:39)
--- NOTE | 2017-07-03 23:15 | Progress Note ---
Subjective Date of Service: Jul 03, 2017. Subjective Pt evaluation today including: conversation w/ patient, physical exam, chart review, lab review, review of studies (MRI l spine; operative report), review of inpatient medication list Pain: back with radiation of pain down posterior L leg PO Intake: just beginning to eat post-op Voiding: [place] catheter in place I saw the patient post-op today on the ortho floor reported pain in her back and left leg but not any worse than pre-op she denied any cough or dyspnea denied chest pain or abd pain Problem List Medical Problems: (1) Acute urinary retention Status: Acute (2) Asthma Status: Chronic (3) Back pain Status: Acute (4) Depression Status: Chronic (5) Low back pain Status: Acute (6) Lumbar nerve root compression Status: Acute (7) Lumbar radiculopathy, acute Status: Acute (8) Migraine Status: Chronic Social History Problems: (1) S/P thyroid biopsy Status: Acute Review of Systems Constitutional: No fever Respiratory: No cough Cardiac: No chest pain Abdomen: No pain, No nausea Objective Vital Signs Date Time Temp Pulse Resp B/P (MAP) Pulse Ox O2 Delivery O2 Flow Rate FiO2 07/03/17 23:00 36.7 115 16 147/92 (110) 97 Room Air 07/03/17 20:00 100 07/03/17 19:51 36.4 117 18 138/82 (100) 96 Room Air 07/03/17 17:44 97 Room Air 07/03/17 15:30 Nasal Cannula 2.0 07/03/17 14:53 36.8 76 16 122/82 (95) 99 Nasal Cannula 4.0 07/03/17 14:15 96 Nasal Cannula 2.0 07/03/17 14:15 Nasal Cannula 2.0 07/03/17 14:15 36.7 74 16 126/83 (97) 96 Nasal Cannula 2.0 07/03/17 13:57 69 19 07/03/17 13:57 70 19 99 07/03/17 13:56 125/83 07/03/17 13:52 86 19 07/03/17 13:52 86 19 99 07/03/17 13:51 137/78 07/03/17 13:47 90 18 100 07/03/17 13:47 89 18 07/03/17 13:46 123/79 07/03/17 13:42 89 16 99 07/03/17 13:42 85 16 07/03/17 13:41 127/87 07/03/17 13:37 76 18 07/03/17 13:37 75 18 112/98 99 07/03/17 13:33 142/99 07/03/17 13:32 80 15 07/03/17 13:32 80 15 99 07/03/17 13:31 143/100 07/03/17 13:28 90 25 97 07/03/17 13:28 89 25 07/03/17 13:26 142/85 07/03/17 13:23 84 17 07/03/17 13:23 89 17 100 07/03/17 13:21 137/90 07/03/17 13:18 69 15 07/03/17 13:18 69 15 100 07/03/17 13:16 143/90 07/03/17 13:13 67 17 07/03/17 13:13 67 17 99 07/03/17 13:12 66 10 100 07/03/17 13:12 67 10 07/03/17 13:11 153/95 07/03/17 13:07 67 13 99 07/03/17 13:07 66 13 07/03/17 13:06 144/94 07/03/17 13:02 66 10 100 07/03/17 13:02 66 10 07/03/17 13:01 154/97 07/03/17 12:57 65 17 07/03/17 12:57 63 17 100 07/03/17 12:56 137/87 07/03/17 12:54 36.8 73 17 144/94 (100) 100 Nasal Cannula 2 07/03/17 12:52 66 17 100 07/03/17 12:52 66 17 07/03/17 12:51 149/90 07/03/17 12:49 66 17 99 07/03/17 12:49 66 17 07/03/17 12:46 148/100 07/03/17 12:44 73 18 07/03/17 12:44 73 18 99 07/03/17 12:41 148/101 07/03/17 12:39 70 14 07/03/17 12:39 70 14 99 07/03/17 12:36 136/100 07/03/17 12:34 82 19 07/03/17 12:34 82 19 94 07/03/17 12:31 141/92 07/03/17 12:29 75 19 07/03/17 12:29 74 19 100 07/03/17 12:28 143/90 07/03/17 12:25 82 16 100 07/03/17 12:25 84 16 07/03/17 12:21 154/98 07/03/17 12:20 82 18 95 07/03/17 12:20 83 18 07/03/17 12:17 146/98 07/03/17 12:15 68 15 146/98 100 Oxymask 8 07/03/17 12:05 69 14 159/96 100 Oxymask 8 07/03/17 11:55 36.3 74 16 147/99 100 Oxymask 8 07/03/17 05:50 36.3 95 14 137/95 (109) 97 Room Air 07/02/17 23:30 97 Room Air Physical Exam General Appearance: no apparent distress ENT: pharynx normal Neck: no JVD Respiratory/Chest: lungs clear, no respiratory distress, no accessory muscle use, + decreased breath sounds (bases) Cardiovascular: no gallop, no murmur, + tachycardia Abdomen: normal bowel sounds, non tender, soft, no organomegaly Extremities: no pedal edema Neurologic/Psychiatric: alert, oriented x 3, + motor weakness (mild, about 4/5 LLE) Laboratory Results Last 24 Hours Test 07/03/17 09:27 White Blood Count 12.29 K/uL Red Blood Count 4.39 M/uL Hemoglobin 13.8 g/dL Hematocrit 38.7 % Mean Corpuscular Volume 88.2 fL Mean Corpuscular Hemoglobin 31.4 pg Mean Corpuscular Hemoglobin Concent 35.7 g/dl Platelet Count 228 K/uL Mean Platelet Volume 9.4 fL Neutrophils (%) (Auto) 85.2 % Lymphocytes (%) (Auto) 10.8 % Monocytes (%) (Auto) 3.8 % Eosinophils (%) (Auto) 0.0 % Basophils (%) (Auto) 0.0 % Neutrophils # (Auto) 10.46 K/uL Lymphocytes # (Auto) 1.33 K/uL Monocytes # (Auto) 0.47 K/uL Eosinophils # (Auto) 0.00 K/uL Basophils # (Auto) 0.00 K/uL RDW Standard Deviation 40.5 fL RDW Coefficient of Variation 12.5 % Immature Granulocyte % (Auto) 0.2 % Immature Granulocyte # (Auto) 0.03 K/uL Sodium Level 139 mmol/L Potassium Level 4.1 mmol/L Chloride Level 108 mmol/L Carbon Dioxide Level 24 mmol/L Anion Gap 6.0 mmol/L Blood Urea Nitrogen 13 mg/dl Creatinine 0.65 mg/dl Est Creatinine Clear Calc Drug Dose 120.7 ml/min Estimated GFR () 133.3 Estimated GFR (Non- 115.0 BUN/Creatinine Ratio 20.2 Random Glucose 107 mg/dl Calcium Level 8.2 mg/dl Magnesium Level 1.9 mg/dl Assessment and Plan 36yo female - 1. severe lumbar back pain with radicular pain in the left leg - 2nd to large disc herniation at L4-L5 - s/p decompression and removal of disc fragments by Dr. Kang today. Defer DVT proph, pain control, dispo to primary ortho team. 2. asthma - w/o exacerbation - albuterol prn. 3. hypothyroidism - cont synthroid, most recent TSH wnl. 4. hypokalemia - resolved. BMP in am. 5. anticipation of acute blood loss anemia - CBC in am. 6. FEN - cont current fluids, diet as tolerated, BMP in am. Mag noted to be normal today. Will continue to follow. Continued [facility] stay due to: ambulation difficulties, multiple IV medications needed Discharge planning: home
[2017-07-04] VITALS (7 sets, daily range): BP systolic 128–150; BP diastolic 86–103; PULSE 85–102; TEMP 36.5–36.8; O2SAT 96–99
[2017-07-04] MEDS: OXYCODONE HCL IR 5 MG TAB (IMMEDIATE RELEASE) PO PRN ×4 (00:01→17:38)
[2017-07-04] MEDS: DEXAMETHASONE INJ 4 MG in SYRINGE 0 ML IV SCH ×4 (00:03→17:39)
[2017-07-04] MEDS: KETOROLAC TROMETHAMINE 30 MG/ML VIAL IV. SCH (02:26)
[2017-07-04] MEDS: LACTATED RINGER'S 1000ML 1,000 ML IV SCH (02:26)
[2017-07-04] MEDS: CEFAZOLIN IV 1,000 MG in SYRINGE 0 ML IV SCH ×2 (02:26→10:10)
[2017-07-04] MEDS: LEVOTHYROXINE 50 MCG TAB PO SCH (05:54)
[2017-07-04] MEDS ORDERED: CEFAZOLIN 2000MG IV PUSH 15 ML IV SCH (06:00)
[2017-07-04] MEDS: HYDROmorphone INJ 2 MG/ML SYR/VIAL IV PRN ×2 (06:14→10:19)
[2017-07-04 07:12] LABS: HEMATOCRIT 40.5 % (37-47); HEMOGLOBIN 13.7 g/dL (12.0-16.0); MEAN CELL VOLUME 88.6 fL (80-100); MEAN CORPUSCULAR HGB CONC 33.8 g/dl (32-36); MEAN PLATELET VOLUME 9.5 fL (7.4-10.4); PLATELET COUNT 249 K/uL (130-400); RED CELL DISTRIBUTION WIDTH CV 12.5 % (11.5-14.5); RED CELL DISTRIBUTION WIDTH SD 40.4 fL (36.4-46.3); WHITE BLOOD COUNT 15.48 K/uL (4.8-10.8)
[2017-07-04 07:44] LABS: CALCIUM 8.2 mg/dl (8.5-10.1); CREATININE 0.8 mg/dl (0.60-1.20); POTASSIUM 3.8 mmol/L (3.5-5.1)
[2017-07-04] MEDS ORDERED: RXC5 PO (07:47)
--- NOTE | 2017-07-04 07:47 | Discharge Instructions ---
Discharge Instructions Date of Service Jul 04, 2017. Admission Reason for Admission: Sciatica Discharge Discharge Diagnosis / Problem: lumbar herniation Discharge Goals Goal(s): Improve function Activity Recommendations Activity Limitations: per Instructions/Follow-up section . Instructions / Follow-Up Instructions / Follow-Up ACTIVITY RECOMMENDATIONS: SELF CARE INSTRUCTIONS AFTER A LAMINECTOMY 1. No prolonged sitting (less than 30 minutes for the first 3 weeks after surgery). 2. No bending, lifting more than 5 pounds, or twisting (roll like a log when turning in bed). 3. You may shower 3 days after surgery if no drainage from wound. Thoroughly dry wound. Do not soak in the tub. 4. Please walk as much as you can for exercise. Gradually increase the distance that you walk as your endurance increases. 5. You may drive in 7-10 days if you are comfortable and no longer requiring pain medications. SPECIAL CARE INSTRUCTIONS: VERY IMPORTANT TO READ AND REVIEW A. Your surgical incision has been closed with a cosmetic suture under the skin that will dissolve in about 6 weeks. In 14 days, you can use a pair of clean scissors and cut the suture that is left outside of the skin at the ends of your incision. B. Complications are uncommon, but please contact us if you have any signs or symptoms of: 1. wound infection (fever higher than 102.5 degrees F, redness, separation of wound, drainage, or increasing pain from the incision) 2. blood clots in legs (pain, swelling, redness and warmth in legs) 3. urinary tract infection (fever higher than 102.5 degrees, burning upon urination or increased frequency of urination) 4. nerve problems (inability to walk on your toes or heels, numbness, loss of bowel or bladder control) 5. any other symptoms that concern you. C. Please call the office at if you have any concerns or questions about your operation or recovery. MANAGING PAIN AFTER SPINAL SURGERY 1. Narcotic medication is intended for short-term use and will be provided for surgical pain. Surgical pain usually lasts for a period of 4-6 weeks. Narcotic medication includes Percocet, Vicodin, Darvocet, Tylenol #3 or Lortab. 2. Longer-term pain is more appropriately treated with non-narcotic medication such as Tylenol ES. 3. Muscle spasm is not appropriately treated with narcotics. Muscle relaxers such as Soma, Flexeril or Skelaxin can be used along with Tylenol ES. 4. Remember that we all live with some "aches and pains". This is not unusual or uncommon after an injury or as we get older. 5. We will provide appropriate medication within the normal guidelines of their prescribed use. We will also be very cautious and aware of potential abuse and extended duration of patients' medication needs. 6. Please allow 2-3 days to process refills. Prescriptions will not be mailed but must be picked up at the office. FOLLOW UP VISIT: Keep your scheduled follow-up appointment. Any questions, please call the office at . Current Hospital Diet Patient's current hospital diet: Regular Diet Discharge Diet Recommended Diet: Regular Diet Procedures Procedures Performed: 1. Lumbar decompression L4-5 with medial facetectomies and excision of herniated free fragment. Pending Studies Studies pending at discharge: no Medical Emergencies . Who to Call and When: Medical Emergencies: If at any time you feel your situation is an emergency, please call 911 immediately. . Non-Emergent Contact Non-Emergency issues call your: Primary Care Provider . "Provider Documentation" section prepared by Alden Kang. .
[2017-07-04] MEDS: DOCUSATE SODIUM 100 MG CAP PO SCH ×2 (08:24→20:51)
[2017-07-04] MEDS: CYANOCOBALAMIN 500 MCG TAB (VIT B-12) PO SCH (08:25)
[2017-07-04] MEDS: BACLOFEN 10 MG TAB PO SCH ×4 (08:26→20:51)
[2017-07-04] MEDS: GABAPENTIN 300 MG CAP PO SCH ×2 (08:26→13:22)
[2017-07-04] MEDS: CHOLECALCIFEROL 1000 INTER.UNIT TAB PO SCH (08:26)
[2017-07-04] MEDS: BuPROPion SR 100 MG TABCR PO SCH ×2 (10:09→20:51)
--- NOTE | 2017-07-04 15:12 | Progress Note ---
Progress Note Date of Service Jul 04, 2017. Progress Note Back pain is controlled leg symptoms improved but still struggling with intermittent radiculopathy in the left lower extremity. On exam vital signs are stable she is in the chair at the bedside. She is good strength testing. Assessment status post decompression. Plan at this time will maintain the MARK drain to the a.m. reassess her progress with therapy and hopefully discharge home tomorrow.
--- NOTE | 2017-07-04 20:25 | Progress Note ---
Subjective Date of Service: Jul 04, 2017. Subjective Pt evaluation today including: conversation w/ patient, conversation w/ family ( at bedside), physical exam, chart review, lab review, review of inpatient medication list Pain: mainly left leg radicular; some lumbar back as well PO Intake: improved Voiding: no voiding problems (following [place] discontinuation) overall feels better today but with minimal activity/walking she is still having neuropathic pain going down the left leg posteriorly she takes neurontin for migraines and is not opposed to increasing it for the radicular sx's she asks if her phentermine can be resumed; this is managed by Dr. Boyer at [facility] to help enhance weight loss unsure of dose +flatus, no stool yet mild dyspnea on exertion with activity Problem List Medical Problems: (1) Acute urinary retention Status: Acute (2) Asthma Status: Chronic (3) Back pain Status: Acute (4) Depression Status: Chronic (5) Low back pain Status: Acute (6) Lumbar nerve root compression Status: Acute (7) Lumbar radiculopathy, acute Status: Acute (8) Migraine Status: Chronic Social History Problems: (1) S/P thyroid biopsy Status: Acute Review of Systems Constitutional: No fever, No chills Respiratory: + dyspnea on exertion, No cough, No dyspnea at rest Cardiac: No chest pain, No orthopnea, No edema Abdomen: No pain, No nausea, No vomiting Objective Vital Signs Date Time Temp Pulse Resp B/P (MAP) Pulse Ox O2 Delivery O2 Flow Rate FiO2 07/04/17 16:30 Room Air 07/04/17 15:08 36.8 86 18 150/102 (118) 99 Room Air 07/04/17 11:58 36.7 102 20 146/96 (113) 96 Room Air 07/04/17 08:22 36.8 16 143/86 (105) 97 Room Air 07/04/17 07:45 Room Air 07/04/17 02:56 36.7 85 14 135/89 (104) 97 Room Air 07/04/17 00:06 36.8 97 07/03/17 23:50 Room Air 07/03/17 23:00 36.7 115 16 147/92 (110) 97 Room Air Physical Exam General Appearance: no apparent distress, + pertinent finding (looks better) ENT: pharynx normal Neck: no JVD Respiratory/Chest: no respiratory distress, no accessory muscle use, + pertinent finding (expiratory phase restricted but no discrete wheezing) Cardiovascular: no gallop, no murmur, + tachycardia Abdomen: normal bowel sounds, non tender, soft, no organomegaly Extremities: no pedal edema Neurologic/Psychiatric: alert, oriented x 3, + motor weakness (4-5/5 strength LLE (foot dorsiflexion/plantarflexion; left hip flexion)) Laboratory Results Last 24 Hours Test 07/04/17 07:00 White Blood Count 15.48 K/uL Red Blood Count 4.57 M/uL Hemoglobin 13.7 g/dL Hematocrit 40.5 % Mean Corpuscular Volume 88.6 fL Mean Corpuscular Hemoglobin 30.0 pg Mean Corpuscular Hemoglobin Concent 33.8 g/dl RDW Standard Deviation 40.4 fL RDW Coefficient of Variation 12.5 % Platelet Count 249 K/uL Mean Platelet Volume 9.5 fL Sodium Level 137 mmol/L Potassium Level 3.8 mmol/L Chloride Level 106 mmol/L Carbon Dioxide Level 27 mmol/L Anion Gap 5.0 mmol/L Blood Urea Nitrogen 16 mg/dl Creatinine 0.80 mg/dl Est Creatinine Clear Calc Drug Dose 98.0 ml/min Estimated GFR () 110.7 Estimated GFR (Non- 95.5 BUN/Creatinine Ratio 20.5 Random Glucose 121 mg/dl Calcium Level 8.2 mg/dl Assessment and Plan 36yo female - 1. severe lumbar back pain with radicular pain in the left leg - 2nd to large disc herniation at L4-L5 - s/p decompression and removal of disc fragments by Dr. Kang, POD #1. Defer DVT proph and pain control to Dr. Kang. However, in light of ongoing radicular symptoms, will increase her neurontin to 400mg TID. 2. asthma - may be in early exacerbation given her dyspnea at times and lung exam today. Encouraged her to use the albuterol q4h prn. 3. hypothyroidism - cont synthroid, most recent TSH wnl. 4. hypokalemia - resolved. BMP stable today. 5. chronic use of phentermine to assist w/ weight loss - this medication is non -formulary; would simply resume upon return home. 6. FEN - diet as tolerated; ok to stop fluids from my standpoint; BMP wnl. 7. migraines - stable, no h/a at this time. d/c tomorrow if pain control adequate? Continued [facility] stay due to: inadequate oral pain control, ambulation difficulties, multiple IV medications needed Discharge planning: home
[2017-07-04] MEDS: AMITRIPTYLINE HCL 50 MG TAB PO SCH (20:51)
[2017-07-04] MEDS: GABAPENTIN 400 MG CAP PO SCH (20:54)
[2017-07-05] MEDS: DEXAMETHASONE INJ 4 MG in SYRINGE 0 ML IV SCH ×5 (00:05→23:24)
[2017-07-05] MEDS: HYDROmorphone INJ 2 MG/ML SYR/VIAL IV PRN ×3 (00:05→22:12)
[2017-07-05] MEDS: LEVOTHYROXINE 50 MCG TAB PO SCH (05:05)
[2017-07-05] MEDS: OXYCODONE HCL IR 5 MG TAB (IMMEDIATE RELEASE) PO PRN ×3 (05:06→16:27)
[2017-07-05] MEDS ORDERED: BISACODYL 5 MG TABEC PO PRN (06:00)
[2017-07-05] MEDS ORDERED: BISACODYL 10 MG SUPP PR PRN (06:00)
[2017-07-05 07:56] VITALS: BP 134/90; PULSE 94; TEMP 36.8; O2SAT 96
[2017-07-05] MEDS ORDERED: GABAPENTIN 300 MG CAP PO SCH (09:00)
[2017-07-05] MEDS: CHOLECALCIFEROL 1000 INTER.UNIT TAB PO SCH (09:05)
[2017-07-05] MEDS: BuPROPion SR 100 MG TABCR PO SCH ×2 (09:05→22:13)
[2017-07-05] MEDS: BACLOFEN 10 MG TAB PO SCH ×4 (09:05→22:12)
[2017-07-05] MEDS: DOCUSATE SODIUM 100 MG CAP PO SCH ×2 (09:05→22:12)
[2017-07-05] MEDS: CYANOCOBALAMIN 500 MCG TAB (VIT B-12) PO SCH (09:06)
[2017-07-05] MEDS: POLYETHYLENE (MIRALAX) 17 GM PACK PO SCH (09:06)
[2017-07-05] MEDS: GABAPENTIN 400 MG CAP PO SCH ×3 (09:06→22:13)
[2017-07-05 11:34] VITALS: BP 140/96; PULSE 94; TEMP 36.6; O2SAT 97
--- NOTE | 2017-07-05 13:24 | Progress Note ---
Progress Note Date of Service Jul 05, 2017. Progress Note Patient unfortunately is declining in status. She has feels that her leg symptoms are worse than they were postoperatively. She start struggling significantly with transfers from the bed to the chair and was even short distance of ambulation secondary to left leg pain. On exam she is lying supine has reasonable unchanged strength. Has hyperesthetic sensation to palpation of the leg on the left. Assessment continued left leg pain per plan at this time concern she may have further disc herniation as she would be at significant risk for recurrence. I would like to obtain an MRI of the lumbar spine rule out continued neural compression.
--- NOTE | 2017-07-05 15:00 | DIAGNOSTIC IMAGING REPORT ---
MRI LUMBAR SPINE W/O CONTRAST CLINICAL HISTORY: Back pain with left leg radiculopathy. TECHNIQUE: Sagittal and axial T1, T2 and STIR images were obtained. COMPARISON STUDY: 07/01/2017 OBSERVATIONS: The vertebral bodies and posterior elements appear intact. There is no abnormal bony signal present to suggest a marrow replacement process. L1-2: No disc protrusions or extrusions. No evidence of spinal canal or neural foraminal compromise. L2-3: No disc protrusions or extrusions. No evidence of spinal canal or neural foraminal compromise. L3-4: There is an annular fissure with associated circumferential disc bulge. There is no significant spinal or foraminal stenosis L4-5: A left hemilaminectomy. There is a persistent anterior extradural defect. This soon after surgery is not possible to distinguish residual disc material from a small postsurgical epidural hematoma. This results in effacement of the thecal sac. There is no significant foraminal narrowing L5-S1: There is a mild circumferential disc bulge. There is no significant spinal or foraminal stenosis. The conus medullaris and cauda equina appear normal. IMPRESSION: 1. Interval surgery at the L4-5 level with a left posterior hemilaminectomy 2. Anterior extradural defect with mass effect on the thecal sac at the L4-5 level.. This soon after surgery is not possible to distinguish residual disc herniation from postsurgical epidural hematoma or a combination of both. Electronically signed by: Deangelo Araiza M.D. 07/05/2017 2:58 PM Dictated Date/Time: 07/05/2017 2:48 PM
[2017-07-05 15:24] VITALS: BP 130/85; PULSE 101; TEMP 36.7; O2SAT 90
[2017-07-05] MEDS ORDERED: NURSING VERBAL MED ORDER ONE (16:45)
--- NOTE | 2017-07-05 18:58 | Progress Note ---
Progress Note Date of Service Jul 05, 2017. Progress Note MRI of the lumbar spine is been complete and have been able to review. He demonstrates evidence of a recurrent disc herniation again contiguous with the disc space at L4-5. It continues to cause significant compression of the traversing nerve roots. I reviewed his findings with the patient and her mother this evening. She continues to note severe left leg pain and inability to ambulate. She has hyperesthetic complaints as well. On exam she has some breakaway weakness hyperesthetic skin. She is in obvious distress. We discussed revision decompression surgery. At this time due to the obstinate nature of this disc and its recurrence I would recommend a complete discectomy and fusion of L4-5. Risks benefits pros cons and alternatives were outlined in detail. All questions are addressed. She will be made n.p.o. after midnight we will plan for surgery tomorrow.
--- NOTE | 2017-07-05 19:11 | Anesthesiology Progress Note ---
Anesthesia Progress Note Date of Service Jul 05, 2017. Progress Notes The patient is scheduled for lumbar surgery with Dr. Kang tomorrow. She was consented for general anesthesia. She was counseled to remain NPO after midnight except for sips of water with pills.
--- NOTE | 2017-07-05 21:23 | Progress Note ---
Subjective Date of Service: Jul 05, 2017. Subjective Pt evaluation today including: conversation w/ patient, conversation w/ family (mother, father at bedside), physical exam, chart review, lab review, review of studies (MRI l-spine), conversation w/ business solutions consultant (ortho Dr. Kang), review of inpatient medication list Pain: severe radicular pain down left leg - overnight/today PO Intake: fair Voiding: voiding difficulty (several times today) pain is ongoing issue had severe pain in left leg overnight and throughout today despite copious amounts of various meds to keep her comfortable (steroids, muscle relaxers, gabapentin, etc) she cannot ambulate comfortably even sitting causes severe pain also reports "asthma attack" overnight with mild wheeze/dyspnea +flatus but no stools; takes linzess chronically for constipation Problem List Medical Problems: (1) Acute urinary retention Status: Acute (2) Asthma Status: Chronic (3) Back pain Status: Acute (4) Depression Status: Chronic (5) Low back pain Status: Acute (6) Lumbar nerve root compression Status: Acute (7) Lumbar radiculopathy, acute Status: Acute (8) Migraine Status: Chronic Social History Problems: (1) S/P thyroid biopsy Status: Acute Review of Systems Constitutional: No fever, No chills Respiratory: + wheezing, + shortness of breath Cardiac: No chest pain, No orthopnea, No PND, No edema Abdomen: + constipation, No pain Objective Vital Signs Date Time Temp Pulse Resp B/P (MAP) Pulse Ox O2 Delivery O2 Flow Rate FiO2 07/05/17 16:15 Room Air 07/05/17 15:24 36.7 101 18 130/85 (100) 90 Room Air 07/05/17 11:34 36.6 94 20 140/96 (111) 97 Room Air 07/05/17 08:00 Room Air 07/05/17 07:56 36.8 94 18 134/90 (105) 96 Room Air 07/04/17 23:55 Room Air 07/04/17 22:56 36.5 96 18 128/87 (101) 96 Room Air Physical Exam General Appearance: no apparent distress ENT: pharynx normal Neck: no JVD Respiratory/Chest: lungs clear, no respiratory distress, no accessory muscle use Cardiovascular: no gallop, no murmur, + tachycardia Abdomen: normal bowel sounds, non tender, no organomegaly, + distended ( minimal ) Extremities: no pedal edema Neurologic/Psychiatric: alert, oriented x 3, + motor weakness (left leg - hip flexion, etc (4-5/5)) Assessment and Plan 36yo female - 1. severe lumbar back pain with radicular pain in the left leg 2nd to large disc herniation at L4-L5, POD #2 - s/p decompression and removal of disc fragments by Dr. Kang Despite surgery, steroids, and ongoing supportive care/pain control she has had severe, ongoing radicular pain down the left leg. Repeat MRI l-spine today suggests re-herniation of disc contents. Unfortunately she has to return to the OR tomorrow w/ Dr. Kang to have a fusion procedure. NPO after MN for such. 2. asthma - intermittent symptoms from such; cont albuterol prn 3. hypothyroidism - cont synthroid, most recent TSH wnl. 4. hypokalemia - resolved. BMPs have been stable; repeat in am. 5. chronic use of phentermine to assist w/ weight loss - this medication is non -formulary; would simply resume upon return home. 6. FEN - diet as tolerated until midnight then NPO once again for the OR tomorrow; bmp wnl. 7. migraines - stable, no h/a at this time. 8. urinary difficulty and incontinence - check u/a and urine cx, r/o UTI. 9. constipation - no symptoms to suggest ileus. Does have chronic constipation at home requiring linzess. Resume linzess. Cont miralax. 10. DVT proph - SCDs, chemical means contraindicated due to spinal surgery. Continued [facility] stay due to: inadequate oral pain control, ambulation difficulties, multiple IV medications needed Discharge planning: home
[2017-07-05] MEDS: AMITRIPTYLINE HCL 50 MG TAB PO SCH (22:12)
[2017-07-05 23:00] VITALS: BP 142/96; PULSE 100; TEMP 36.8; O2SAT 95
[2017-07-06] MEDS: OXYCODONE HCL IR 5 MG TAB (IMMEDIATE RELEASE) PO PRN (00:11)
[2017-07-06] MEDS: LEVOTHYROXINE 50 MCG TAB PO SCH (06:00)
[2017-07-06] MEDS: LINACLOTIDE 290 MCG CAP PO SCH (06:00)
[2017-07-06] MEDS: DEXAMETHASONE INJ 4 MG in SYRINGE 0 ML IV SCH ×2 (06:15→11:33)
[2017-07-06] MEDS: HYDROmorphone INJ 2 MG/ML SYR/VIAL IV PRN ×2 (06:16→11:33)
[2017-07-06 07:52] VITALS: BP 137/92; PULSE 108; TEMP 36.5; O2SAT 95
[2017-07-06 08:22] LABS: HEMATOCRIT 39.9 % (37-47); HEMOGLOBIN 13.9 g/dL (12.0-16.0); MEAN CELL VOLUME 89.7 fL (80-100); MEAN CORPUSCULAR HEMOGLOBIN 31.2 pg (25-34); MEAN CORPUSCULAR HGB CONC 34.8 g/dl (32-36); MEAN PLATELET VOLUME 9.4 fL (7.4-10.4); PLATELET COUNT 292 K/uL (130-400); RED CELL DISTRIBUTION WIDTH CV 13.1 % (11.5-14.5); RED CELL DISTRIBUTION WIDTH SD 43.3 fL (36.4-46.3); WHITE BLOOD COUNT 15.23 K/uL (4.8-10.8)
[2017-07-06] MEDS: POLYETHYLENE (MIRALAX) 17 GM PACK PO SCH (09:00)
[2017-07-06] MEDS: DOCUSATE SODIUM 100 MG CAP PO SCH ×2 (09:00→20:59)
[2017-07-06] MEDS: CHOLECALCIFEROL 1000 INTER.UNIT TAB PO SCH (09:00)
[2017-07-06] MEDS: CYANOCOBALAMIN 500 MCG TAB (VIT B-12) PO SCH (09:00)
[2017-07-06 09:01] LABS: CALCIUM 8.7 mg/dl (8.5-10.1); CREATININE 0.74 mg/dl (0.60-1.20); POTASSIUM 4.2 mmol/L (3.5-5.1)
[2017-07-06] MEDS: BACLOFEN 10 MG TAB PO SCH ×4 (09:02→20:59)
[2017-07-06] MEDS: BuPROPion SR 100 MG TABCR PO SCH ×2 (09:02→21:00)
[2017-07-06] MEDS: GABAPENTIN 400 MG CAP PO SCH ×3 (09:03→20:59)
[2017-07-06] MEDS ORDERED: CEFAZOLIN SOD 1000MG/7.5 ML IV PUSH IV ONE (15:41)
[2017-07-06] MEDS ORDERED: EpHEDrine SULFATE INJ 50 MG/ML AMP IV PRN (15:45)
[2017-07-06] MEDS ORDERED: HYDROmorphone INJ 0.5 MG/0.5 ML SYR IV PRN (15:45)
[2017-07-06] MEDS ORDERED: ATROPINE SULFATE 0.1 MG/ML 5ML SYR IV PRN (15:45)
[2017-07-06] MEDS ORDERED: ONDANSETRON INJ 2 MG/ML 2 ML VIAL IV PRN (15:45)
[2017-07-06] MEDS ORDERED: MIDAZOLAM HCL 1 MG/ML 2ML VIAL ONE (15:46)
[2017-07-06] MEDS ORDERED: FENTANYL CITRATE INJ 50 MCG/1 ML 2 ML VIAL ONE (15:46)
[2017-07-06] MEDS ORDERED: BUPIVACAINE/EPINEPHRINE 0.5% MPF 1:200,000 30 ML VIAL ONE (15:51)
[2017-07-06] MEDS ORDERED: BACITRACIN 50000 UNIT VIAL ONE (15:51)
[2017-07-06] MEDS ORDERED: HYDROmorphone INJ 2 MG/ML SYR/VIAL ONE ×2 (16:18→18:16)
[2017-07-06] MEDS ORDERED: DEXAMETHASONE SOD INJ 4 MG/ML VIAL ONE (16:20)
[2017-07-06] MEDS ORDERED: LIDOCAINE HCL 2% 2 ML VIAL (20MG/ML) ONE (16:20)
[2017-07-06] MEDS ORDERED: ONDANSETRON INJ 2 MG/ML 2 ML VIAL ONE (16:20)
[2017-07-06] MEDS ORDERED: GLYCOPYRROLATE INJ 0.2 MG/ML VIAL ONE (16:21)
[2017-07-06] MEDS ORDERED: PROPOFOL IV EMULSION 10 MG/ML 20 ML VIAL IV ONE (16:21)
[2017-07-06] MEDS ORDERED: ROCURONIUM BROMIDE 10 MG/ML 5 ML VIAL IV ONE ×2 (16:21→16:53)
[2017-07-06] MEDS ORDERED: NEOSTIGMINE METHYLSULFATE 1 MG/ML 10ML VIAL ONE (16:21)
[2017-07-06] MEDS ORDERED: FLOSEAL HEMOSTATIC MATRIX 10ML TOP ONE (17:31)
--- NOTE | 2017-07-06 17:43 | DIAGNOSTIC IMAGING REPORT ---
LUMBAR SPINE 2 OR 3 VIEW CLINICAL HISTORY: LUMBAR fusion TECHNIQUE: Image intensifier COMPARISON STUDY: None FINDINGS: Image intensifier images demonstrate a laminectomy and fusion at L4-L5. Disc spacer is present. Alignment is anatomic. IMPRESSION: L4-L5 fusion The above report was generated using voice recognition software. It may contain grammatical, syntax or spelling errors. Electronically signed by: Dennis Feldman M.D. 07/06/2017 5:42 PM Dictated Date/Time: 07/06/2017 5:42 PM
[2017-07-06] MEDS ORDERED: SODIUM CHLORIDE 0.9% 1000ML 1,000 ML IV SCH (17:48)
--- NOTE | 2017-07-06 17:48 | [facility] Operative Report ---
Operative Report Operative Date Jul 06, 2017. Pre-Operative Diagnosis Herniated nucleus pulposus L4-5 with free fragment caudal migration on the left Post-Operative Diagnosis Herniated nucleus pulposus L4-5 with free fragment caudal migration on the left Procedure(s) Performed 1. Revision decompression medial facetectomies foraminotomies L4-5. #2 posterior spinal fusion L4-5 #3 placement posterior instrumentation L4-5. #4 interbody fusion L4-5. #5 placement of titanium cage 10 x 22 mm L4-5. #6 placement of infuse collagen sponge combined master graft in the posterior lateral gutters and ostial amp in the interbody spaces. #7 placement of locally harvested morselized autograft in the posterior lateral gutters. Surgeon Dr. Alden Kang Receptionist Scheduler Surgeon(s) none Estimated Blood Loss 200ml Findings Recurrent disc herniation Specimens none per surgeon Anesthesia Type General Description of Procedure Patient was met with preoperatively case discussed all questions addressed. After informed consent obtained patient was taken to the operative suite underwent intubation and placed in a prone position the [facility] tablets frame. All bony prominences well-padded eyes inspected to ensure no external pressure placed upon. This point the lumbar spine was prepped and draped in normal sterile fashion. Utilizing his previous incision site sharp dissection the assistance of Bovie cautery was performed on August exposing the lamina and transverse process of L4 and L5 bilaterally. From a caudal cephalad fashion revision complete laminectomy of L4 was performed of the medial facetectomies foraminotomies on the left identified evidence of an annular tear and massive amounts of disc material migrating caudally. The removed in their entirety. And pedicle screws were placed in L4 and L5 bilaterally with the assistance of fluoroscopy and a Propacet adolph placed. Through a transforaminal approach on the left complete discectomy was performed endplates created to subcortical bleeding bone and a 10 x 22 mm titanium cage filled with ostium bone graft tapped in position. The rods then compressed locked in final position bilaterally. Transverse processes of L4 and L5 burred to subcortical bleeding bone. Infuse collagen sponge mesh graft and locally harvested morselized autograft was placed in the posterior lateral gutters. A 15 round MARK drain was inserted. Incision was then closed with 1 Vicryl fascia 2-0 Vicryl substantially 4-0 Monocryl for fashion closure Steri-Strips sterile dressings placed. Patient will continue PACU stable condition. I attest to the content of the Intraoperative Record and any orders documented therein. Any exceptions are noted below.
[2017-07-06] MEDS ORDERED: LORAZEPAM 0.5 MG TAB PO PRN (18:00)
[2017-07-06] MEDS ORDERED: DO NOT ADMINISTER PNEUMOCOCCAL VACCINE PRN (18:00)
[2017-07-06] MEDS ORDERED: MAGNESIUM HYDROXIDE SUSP 30 ML UDC PO PRN (18:00)
[2017-07-06] MEDS ORDERED: METOCLOPRAMIDE HCL INJ 5 MG/ML 2 ML VIAL IV PRN (18:00)
[2017-07-06] MEDS ORDERED: BISACODYL 10 MG SUPP PR PRN (18:00)
[2017-07-06] MEDS ORDERED: hydrOXYzine HCL 25 MG TAB PO PRN (18:00)
[2017-07-06] MEDS ORDERED: ACETAMINOPHEN IV 100 ML IV PRN (18:00)
[2017-07-06] MEDS ORDERED: FAMOTIDINE 20 MG TAB PO PRN (18:00)
[2017-07-06] MEDS ORDERED: ALUMINUM/MAGNESIUM SUSP 30 ML UDC PO PRN (18:00)
[2017-07-06] MEDS ORDERED: ACETAMINOPHEN 500 MG TAB PO PRN (18:00)
[2017-07-06] MEDS ORDERED: SOD PHOSPHATE/SOD BIPHOSPHATE ENEMA 132 ML BTL PR PRN (18:00)
[2017-07-06] MEDS ORDERED: LORAZEPAM INJ 0.5 MG in SYRINGE 0.75 ML IV PRN (18:00)
[2017-07-06] MEDS ORDERED: NALOXONE HCL 0.4 MG/1 ML VIAL/CARP IV PRN ×2 (18:00)
[2017-07-06] MEDS ORDERED: DO NOT ADMINISTER FLU VACCINE PRN (18:00)
[2017-07-06] MEDS ORDERED: HYDROmorphone HCL 0.5MG/ML 50 ML CASSETTE ONE (18:01)
[2017-07-06] MEDS: FENTANYL CITRATE INJ 50 MCG/1 ML 2 ML VIAL IV PRN ×4 (18:03→18:18)
[2017-07-06] MEDS ORDERED: LORAZEPAM 2 MG/ML 1 ML VIAL ONE (18:20)
--- NOTE | 2017-07-06 18:41 | Anesthesiology Progress Note ---
Anesthesia Post Op Note Date & Time Jul 06, 2017 at 18:41 Vital Signs Vital Signs Past 12 Hours Date Time Temp Pulse Resp B/P (MAP) Pulse Ox O2 Delivery O2 Flow Rate FiO2 07/06/17 18:05 84 16 181/105 97 Oxymask 10 07/06/17 17:58 37.6 99 12 166/116 100 Oxymask 10 07/06/17 08:00 Room Air 07/06/17 07:52 36.5 108 16 137/92 (107) 95 Room Air Notes Mental Status: alert / awake / arousable, participated in evaluation Pt Amnestic to Procedure: Yes Nausea / Vomiting: adequately controlled Pain: adequately controlled Airway Patency, RR, SpO2: stable & adequate BP & HR: stable & adequate Hydration State: stable & adequate Anesthetic Complications: no major complications apparent
[2017-07-06] MEDS: LACTATED RINGER'S 1000ML 1,000 ML IV SCH (19:35)
[2017-07-06] MEDS: HYDROmorphone HCL 0.5MG/ML 50 ML CASSETTE IV PRN ×2 (19:38→23:05)
[2017-07-06 19:40] VITALS: BP 156/105; PULSE 88; TEMP 36.6; O2SAT 98
[2017-07-06 20:31] VITALS: BP 168/106; PULSE 91; TEMP 36.3; O2SAT 97
[2017-07-06 20:50] VITALS: BP 156/91; PULSE 87; TEMP 36.5; O2SAT 96
[2017-07-06] MEDS: AMITRIPTYLINE HCL 50 MG TAB PO SCH (20:59)
[2017-07-06] MEDS: DOCUSATE SODIUM/SENNA 50/8.6MG TAB PO SCH (20:59)
[2017-07-06 22:00] VITALS: BP 152/100; PULSE 94; TEMP 36.6; O2SAT 98
[2017-07-06 23:00] VITALS: BP 138/80; PULSE 129; TEMP 36.6; O2SAT 96
[2017-07-07] MEDS: LACTATED RINGER'S 1000ML 1,000 ML IV SCH (00:21)
[2017-07-07] MEDS: CEFAZOLIN IV 2,000 MG in SYRINGE 0 ML IV SCH ×2 (00:22→08:53)
--- NOTE | 2017-07-07 00:27 | Progress Note ---
Subjective Date of Service: late entry for visit Jul 06, 2017. Subjective Pt evaluation today including: conversation w/ patient, conversation w/ family (multiple, at bedside), physical exam, chart review, lab review, review of studies (op note from today), review of inpatient medication list Pain: severe, left leg - radicular - w/ any movement PO Intake: npo for procedure today Voiding: voiding difficulty main complaint is that of ongoing left leg radicular pain despite steroids, narcotics, muscle relaxers, etc feels a little anxious passing flatus but no bowel movement in nearly a week denies chest discomfort, pain, or tightness asthma is ok today - no wheezing Problem List Medical Problems: (1) Acute urinary retention Status: Acute (2) Asthma Status: Chronic (3) Back pain Status: Acute (4) Depression Status: Chronic (5) Low back pain Status: Acute (6) Lumbar nerve root compression Status: Acute (7) Lumbar radiculopathy, acute Status: Acute (8) Migraine Status: Chronic Social History Problems: (1) S/P thyroid biopsy Status: Acute Review of Systems Constitutional: No fever Respiratory: No cough, No sputum, No wheezing, No dyspnea at rest Cardiac: No chest pain, No orthopnea, No PND, No edema, No palpitations Abdomen: + constipation, No pain Female : No dysuria Objective Vital Signs Date Time Temp Pulse Resp B/P (MAP) Pulse Ox O2 Delivery O2 Flow Rate FiO2 07/06/17 23:00 36.6 129 18 138/80 (99) 96 Room Air 07/06/17 22:00 36.6 94 18 152/100 (117) 98 Nasal Cannula 2.0 07/06/17 20:50 36.5 87 18 156/91 (112) 96 Nasal Cannula 2.0 07/06/17 20:31 36.3 91 18 168/106 (126) 97 Nasal Cannula 2.0 07/06/17 19:40 36.6 88 18 156/105 (122) 98 Nasal Cannula 2.0 07/06/17 19:35 Nasal Cannula 2.0 07/06/17 19:35 Nasal Cannula 2.0 07/06/17 19:20 91 16 156/101 99 Nasal Cannula 4 07/06/17 19:10 85 16 165/103 99 Nasal Cannula 4 4/26/18 19:05 89 16 163/114 99 Nasal Cannula 4 07/06/17 18:55 101 16 155/118 99 Nasal Cannula 4 07/06/17 18:45 37.3 102 22 172/111 99 Nasal Cannula 4 07/06/17 18:35 88 18 162/110 100 Nasal Cannula 4 07/06/17 18:25 104 16 137/117 100 Nasal Cannula 4 07/06/17 18:15 111 20 163/115 100 Oxymask 10 07/06/17 18:05 84 16 181/105 97 Oxymask 10 07/06/17 17:58 37.6 99 12 166/116 100 Oxymask 10 07/06/17 08:00 Room Air 07/06/17 07:52 36.5 108 16 137/92 (107) 95 Room Air Physical Exam General Appearance: no apparent distress, + pertinent finding (anxious) ENT: pharynx normal Neck: no JVD Respiratory/Chest: lungs clear, no respiratory distress, no accessory muscle use Cardiovascular: no gallop, no murmur, + tachycardia Abdomen: normal bowel sounds, non tender, soft, no organomegaly, + distended ( mild) Extremities: non-tender, normal inspection, no pedal edema, no calf tenderness , normal capillary refill Neurologic/Psychiatric: alert, oriented x 3, + pertinent finding (mild anxiety ) Laboratory Results Last 24 Hours Test 07/06/17 07:52 White Blood Count 15.23 K/uL Red Blood Count 4.45 M/uL Hemoglobin 13.9 g/dL Hematocrit 39.9 % Mean Corpuscular Volume 89.7 fL Mean Corpuscular Hemoglobin 31.2 pg Mean Corpuscular Hemoglobin Concent 34.8 g/dl RDW Standard Deviation 43.3 fL RDW Coefficient of Variation 13.1 % Platelet Count 292 K/uL Mean Platelet Volume 9.4 fL Prothrombin Time 10.2 SECONDS Prothromb Time International Ratio 1.0 Sodium Level 140 mmol/L Potassium Level 4.2 mmol/L Chloride Level 108 mmol/L Carbon Dioxide Level 24 mmol/L Anion Gap 8.0 mmol/L Blood Urea Nitrogen 18 mg/dl Creatinine 0.74 mg/dl Est Creatinine Clear Calc Drug Dose 106.0 ml/min Estimated GFR () 121.7 Estimated GFR (Non- 105.0 BUN/Creatinine Ratio 24.1 Random Glucose 109 mg/dl Calcium Level 8.7 mg/dl Assessment and Plan 36yo female - 1. severe lumbar back pain with radicular pain in the left leg 2nd to large disc herniation at L4-L5, POD #3 - s/p decompression and removal of disc fragments by Dr. Kang Despite surgery, steroids, and ongoing supportive care/pain control she continued w/ severe, ongoing radicular pain down the left leg. Repeat MRI l-spine on 07/06 suggested re-herniation of disc contents. Unfortunately she had to return to the OR today w/ orthopedics for a revision of her decompression as well as lumbar fusion procedure. Defer management to Dr. Kang's team. Gabapentin increased to 400mg TID this admission for her radicular symptoms. 2. asthma - intermittent symptoms from such; cont albuterol prn 3. hypothyroidism - cont synthroid, most recent TSH wnl (04/2017). 4. hypokalemia - resolved. BMPs have been stable; repeat in am. 5. chronic use of phentermine to assist w/ weight loss - patient had asked to have this resumed while here; this medication is non-formulary; would simply resume upon return home. Also, the phentermine can cause tachycardia and she has had problems with rapid HR while here. 6. FEN - diet as tolerated, repeat BMP am. 7. migraines - stable, no h/a at this time. 8. urinary difficulty and incontinence - urine micro with yeast; await culture ; defer on empiric Rx. 9. constipation - this is a chronic issue for her at home requiring linzess. The linzess has been resumed and she is also on miralax. Still no bowel movement in nearly a week. Likely will need stimulant laxative and/or enema/suppository tomorrow if still no success. No nausea/emesis/significant bloating/significant distension to suggest ileus but low threshold to check KUB x-ray for such. 10. DVT proph - SCDs, chemical means contraindicated due to spinal surgery. 11. tachycardia - likely due to pain and anxiety. However, in light of ambulatory dysfunction and near bed-bound status due to pain for numerous days - -- would have a low threshold for checking for PE if necessary. Continued [facility] stay due to: inadequate oral pain control, voiding difficulties , ambulation difficulties, multiple IV medications needed Discharge planning: uncertain
[2017-07-07 03:28] VITALS: BP 132/64; PULSE 101; TEMP 36.6; O2SAT 97
[2017-07-07] MEDS ORDERED: DC PCA SCH (06:00)
[2017-07-07] MEDS: LINACLOTIDE 290 MCG CAP PO SCH (06:09)
[2017-07-07] MEDS: LEVOTHYROXINE 50 MCG TAB PO SCH (06:09)
[2017-07-07] MEDS ORDERED: NURSING DECISION MEDICATION ORDER SCH ×2 (06:15→15:30)
[2017-07-07] MEDS: ONDANSETRON INJ 2 MG/ML 2 ML VIAL IV PRN ×3 (06:23→19:30)
[2017-07-07 07:06] LABS: BASO % 0.1 %; BASO ABS # 0.02 K/uL (0-0.2); EOS % 0.1 %; EOS ABS # 0.03 K/uL (0-0.5); HEMATOCRIT 35.7 % (37-47); HEMOGLOBIN 12.3 g/dL (12.0-16.0); IG# 0.39 K/uL (0.00-0.02); LYMPH % 22.1 %; LYMPH ABS # 4.44 K/uL (1.2-3.4); MEAN CELL VOLUME 89.9 fL (80-100); MEAN CORPUSCULAR HGB CONC 34.5 g/dl (32-36); MEAN PLATELET VOLUME 9.2 fL (7.4-10.4); MONO % 8.5 %; NEUT % 67.3 %; PLATELET COUNT 276 K/uL (130-400); RED CELL DISTRIBUTION WIDTH SD 42.8 fL (36.4-46.3); WHITE BLOOD COUNT 20.08 K/uL (4.8-10.8)
[2017-07-07 07:39] LABS: CALCIUM 7.9 mg/dl (8.5-10.1); CREATININE 0.83 mg/dl (0.60-1.20); POTASSIUM 3.7 mmol/L (3.5-5.1)
[2017-07-07] MEDS: OXYCODONE HCL IR 5 MG TAB (IMMEDIATE RELEASE) PO PRN (07:57)
[2017-07-07 08:11] VITALS: BP 124/82; PULSE 106; TEMP 36.7; O2SAT 97
[2017-07-07] MEDS: BACLOFEN 10 MG TAB PO SCH ×4 (08:53→21:34)
[2017-07-07] MEDS: DOCUSATE SODIUM 100 MG CAP PO SCH ×2 (08:54→21:35)
[2017-07-07] MEDS: BuPROPion SR 100 MG TABCR PO SCH ×2 (08:54→21:35)
[2017-07-07] MEDS: CYANOCOBALAMIN 500 MCG TAB (VIT B-12) PO SCH (08:54)
[2017-07-07] MEDS: CHOLECALCIFEROL 1000 INTER.UNIT TAB PO SCH (08:54)
[2017-07-07] MEDS: GABAPENTIN 400 MG CAP PO SCH ×3 (08:55→21:35)
[2017-07-07] MEDS: PROMETHAZINE HCL INJ 12.5 MG in SODIUM CHLORIDE 0.9% 50ML 50 ML IV PRN (09:40)
[2017-07-07] MEDS: HYDROmorphone INJ 0.5 MG/0.5 ML SYR IV PRN ×2 (09:42→22:46)
[2017-07-07] MEDS ORDERED: KETOROLAC TROMETHAMINE 30 MG/ML VIAL IV STA (10:07)
[2017-07-07 13:45] VITALS: BP 122/71; PULSE 131; TEMP 36.8; O2SAT 95
[2017-07-07 14:30] VITALS: BP_SYST 103; BP_SYST 70; BP_SYST 87; BP_DIAS 43; BP_DIAS 55; BP_DIAS 63; PULSE 130; PULSE 132; PULSE 146
--- NOTE | 2017-07-07 14:54 | Progress Note ---
Progress Note Date of Service Jul 07, 2017. Progress Note Patient's back pain is controlled leg symptoms markedly improved. On exam she is good strength testing increased range of motion without difficulty testing the lower extremities. Assessment status post revision decompression fusion. Plan at this time will continue with physical therapy advance her bowel regimen anticipate home this weekend.
[2017-07-07 15:27] VITALS: BP 112/66; PULSE 125; TEMP 36.8; O2SAT 97
[2017-07-07] MEDS: SODIUM CHLORIDE 0.9% 1000ML 1,000 ML IV SCH ×2 (16:19→23:57)
[2017-07-07] MEDS: KETOROLAC TROMETHAMINE 30 MG/ML VIAL IV PRN (19:04)
--- NOTE | 2017-07-07 19:26 | Hospitalist Progress Note ---
Hospitalist Progress Note Date of Service Jul 07, 2017. Subjective Pt evaluation today including: conversation w/ patient, conversation w/ family Having some issues with urinary retention despite need or urge to void. Was able to urinate a good amount just now this evening. She is tolerating p.o. Still having a lot of pain in her back requiring pain medication at times. She is quite anxious and talkative. Orthostatics were positive today and she has had some sinus tachycardia throughout the day. She did receive dexamethasone yesterday. She also tells me that she has had a possibility of a diagnosis of POTS in the past. No chest pain, no shortness of breath. All Other Systems: Reviewed and Negative Objective Vital Signs Date Time Temp Pulse Resp B/P (MAP) Pulse Ox O2 Delivery O2 Flow Rate FiO2 07/07/17 16:05 Room Air 07/07/17 15:27 36.8 125 18 112/66 (81) 97 Room Air 07/07/17 14:30 130 103/63 (76) 132 87/55 (66) 146 70/43 (52) 07/07/17 13:45 36.8 131 18 122/71 (88) 95 Room Air 07/07/17 08:11 36.7 106 16 124/82 (96) 97 Room Air 07/07/17 08:00 Room Air 07/07/17 03:28 36.6 101 16 132/64 (86) 97 Room Air 07/07/17 00:25 Room Air 07/06/17 23:00 36.6 129 18 138/80 (99) 96 Room Air 07/06/17 22:00 36.6 94 18 152/100 (117) 98 Nasal Cannula 2.0 07/06/17 20:50 36.5 87 18 156/91 (112) 96 Nasal Cannula 2.0 07/06/17 20:31 36.3 91 18 168/106 (126) 97 Nasal Cannula 2.0 07/06/17 19:40 36.6 88 18 156/105 (122) 98 Nasal Cannula 2.0 07/06/17 19:35 Nasal Cannula 2.0 07/06/17 19:35 Nasal Cannula 2.0 07/06/17 19:20 91 16 156/101 99 Nasal Cannula 4 Physical Exam General Appearance: WD/WN, no apparent distress (Talkative, biting on her fingernails while talking to me) Eyes: normal inspection, sclerae normal ENT: hearing grossly normal Neck: trachea midline Respiratory/Chest: lungs clear, normal breath sounds, no respiratory distress, no accessory muscle use Cardiovascular: no edema, no murmur, + tachycardia (Mild but regular) Abdomen: normal bowel sounds, non tender, soft, no organomegaly Extremities: non-tender, normal inspection, no pedal edema, no calf tenderness Neurologic/Psychiatric: alert, oriented x 3, + pertinent finding (Anxious) Skin: normal color, warm/dry, no rash Laboratory Results Last 24 Hours Test 07/07/17 06:47 White Blood Count 20.08 K/uL Red Blood Count 3.97 M/uL Hemoglobin 12.3 g/dL Hematocrit 35.7 % Mean Corpuscular Volume 89.9 fL Mean Corpuscular Hemoglobin 31.0 pg Mean Corpuscular Hemoglobin Concent 34.5 g/dl Platelet Count 276 K/uL Mean Platelet Volume 9.2 fL Neutrophils (%) (Auto) 67.3 % Lymphocytes (%) (Auto) 22.1 % Monocytes (%) (Auto) 8.5 % Eosinophils (%) (Auto) 0.1 % Basophils (%) (Auto) 0.1 % Neutrophils # (Auto) 13.50 K/uL Lymphocytes # (Auto) 4.44 K/uL Monocytes # (Auto) 1.70 K/uL Eosinophils # (Auto) 0.03 K/uL Basophils # (Auto) 0.02 K/uL RDW Standard Deviation 42.8 fL RDW Coefficient of Variation 13.0 % Immature Granulocyte % (Auto) 1.9 % Immature Granulocyte # (Auto) 0.39 K/uL Sodium Level 136 mmol/L Potassium Level 3.7 mmol/L Chloride Level 103 mmol/L Carbon Dioxide Level 27 mmol/L Anion Gap 6.0 mmol/L Blood Urea Nitrogen 18 mg/dl Creatinine 0.83 mg/dl Est Creatinine Clear Calc Drug Dose 94.5 ml/min Estimated GFR () 105.9 Estimated GFR (Non- 91.4 BUN/Creatinine Ratio 22.3 Random Glucose 118 mg/dl Calcium Level 7.9 mg/dl Diagnostic Results ECG reviewed which shows sinus tachycardia, normal axis Assessment and Plan 36yo female - 1. severe lumbar back pain with radicular pain in the left leg 2nd to large disc herniation at L4-L5, POD #4 - s/p decompression and removal of disc fragments by Dr. Kang Despite surgery, steroids, and ongoing supportive care/pain control she continued w/ severe, ongoing radicular pain down the left leg. Repeat MRI l-spine on 07/06 suggested re-herniation of disc contents. Unfortunately she had to return to the OR on 07/06 w/ orthopedics for a revision of her decompression as well as lumbar fusion procedure. Defer management to Dr. Kang's team. Gabapentin increased to 400mg TID this admission for her radicular symptoms. Continue baclofen for muscle spasm -Continue Dilaudid and oxycodone, as well as Toradol as needed for pain -Watch for urinary retention and straight cath as needed-discussed with nurse to check a postvoid residual bladder scan every shift 2. asthma - intermittent symptoms from such; cont albuterol prn 3. hypothyroidism - cont synthroid, most recent TSH wnl (04/2017). 4. hypokalemia - resolved. BMPs have been stable; repeat in am. 5. chronic use of phentermine to assist w/ weight loss - patient had asked to have this resumed while here; this medication is non-formulary; would simply resume upon return home. Also, the phentermine can cause tachycardia and she has had problems with rapid HR while here. 6. FEN - diet as tolerated, repeat BMP am. 7. migraines - stable, no h/a at this time. Is on gabapentin and amitriptyline for this for prevention 8. urinary retention-urine micro with yeast; await culture which has pinpoint growth; defer on empiric Rx. Likely secondary to opioids plus TCAs causing urinary retention, as well as pelvic floor muscle tension due to pain and anxiety -Bladder scan as above as needed and straight cath as needed 9. constipation - this is a chronic issue for her at home requiring linzess. Still ongoing The linzess has been resumed and she is also on miralax. Still no bowel movement in nearly a week. Likely will need stimulant laxative and/or enema/suppository tomorrow if still no success. No nausea/emesis/significant bloating/significant distension to suggest ileus but low threshold to check KUB x-ray for such. 10. DVT proph - SCDs, chemical means contraindicated due to spinal surgery. 11. tachycardia - likely due to pain and anxiety. Also with a history of POTS. Orthostatics positive today. She is not hypoxic and no chest pain. No evidence of DVT on exam, very low test probability for PE. Hemoglobin with small drop today of 1.6 g and surgery yesterday. Start normal saline at 125 ML's per hour to see if helps -Treat anxiety as needed -If not improving with pain control, anxiety control, and IV fluids, consider CT chest Disposition-remain on the medical floor until cleared to return home by orthopedic surgery
[2017-07-07] MEDS: AMITRIPTYLINE HCL 50 MG TAB PO SCH (21:35)
[2017-07-07] MEDS: DOCUSATE SODIUM/SENNA 50/8.6MG TAB PO SCH (21:36)
[2017-07-07 23:13] VITALS: BP 102/65; PULSE 105; TEMP 36.7; O2SAT 99
[2017-07-08 00:54] VITALS: BP 117/74; PULSE 102; O2SAT 98
[2017-07-08] MEDS: HYDROmorphone INJ 0.5 MG/0.5 ML SYR IV PRN ×3 (05:03→23:43)
[2017-07-08] MEDS: ONDANSETRON INJ 2 MG/ML 2 ML VIAL IV PRN ×2 (05:03→19:27)
[2017-07-08] MEDS: LINACLOTIDE 290 MCG CAP PO SCH (05:06)
[2017-07-08] MEDS: LEVOTHYROXINE 50 MCG TAB PO SCH (05:07)
[2017-07-08] MEDS: POLYETHYLENE (MIRALAX) 17 GM PACK PO SCH ×4 (05:07→23:43)
[2017-07-08 07:20] VITALS: BP 125/85; PULSE 105; TEMP 36.6; O2SAT 98
[2017-07-08 07:37] LABS: BASO % 0.1 %; BASO ABS # 0.01 K/uL (0-0.2); EOS ABS # 0.12 K/uL (0-0.5); HEMATOCRIT 34.3 % (37-47); HEMOGLOBIN 11.5 g/dL (12.0-16.0); IG# 0.27 K/uL (0.00-0.02); LYMPH % 26.8 %; LYMPH ABS # 3.27 K/uL (1.2-3.4); MEAN CELL VOLUME 91.2 fL (80-100); MEAN CORPUSCULAR HEMOGLOBIN 30.6 pg (25-34); MEAN CORPUSCULAR HGB CONC 33.5 g/dl (32-36); MEAN PLATELET VOLUME 9.1 fL (7.4-10.4); MONO % 8.4 %; MONO ABS # 1.03 K/uL (0.11-0.59); NEUT % 61.5 %; NEUT ABS # 7.52 K/uL (1.4-6.5); PLATELET COUNT 209 K/uL (130-400); RED CELL DISTRIBUTION WIDTH CV 13.3 % (11.5-14.5); RED CELL DISTRIBUTION WIDTH SD 44.5 fL (36.4-46.3); WHITE BLOOD COUNT 12.22 K/uL (4.8-10.8)
[2017-07-08] MEDS: SODIUM CHLORIDE 0.9% 1000ML 1,000 ML IV SCH ×3 (07:46→23:42)
[2017-07-08] MEDS: PROMETHAZINE HCL INJ 12.5 MG in SODIUM CHLORIDE 0.9% 50ML 50 ML IV PRN (08:06)
[2017-07-08 08:12] LABS: CALCIUM 7.5 mg/dl (8.5-10.1); CREATININE 0.68 mg/dl (0.60-1.20); POTASSIUM 3.6 mmol/L (3.5-5.1)
--- NOTE | 2017-07-08 08:28 | Orthopedic Progress Note ---
Orthopedic Progress Note Date of Service Jul 08, 2017. Subjective Post OP Day: 2 Additional Notes: Diane is postoperative day 2 revision decompression with instrument effusion. She has complaints of lower back pain specifically when rolling over in bed. She has some modest right hip pain. The radicular leg pain she had preoperatively has resolved. MARK drain output last shift is 20 cc. History and physical therapy she is ambling roughly 110 feet. She has complaints of cough. No shortness of breath. She is passing flatus. No bowel movement. Objective calves soft nontender, N/V intact, dressing C/D/I, A&O x3, toes mobile She is lying in bed. No obvious distress. Calf soft nontender bilaterally. Neurovascular intact bilaterally. Date Time Temp Pulse Resp B/P (MAP) Pulse Ox O2 Delivery O2 Flow Rate FiO2 07/08/17 07:20 36.6 105 16 125/85 (98) 98 Room Air 07/08/17 00:54 102 18 117/74 (88) 98 Room Air 07/07/17 23:54 Room Air 07/07/17 23:13 36.7 105 20 102/65 (77) 99 Room Air 07/07/17 16:05 Room Air 07/07/17 15:27 36.8 125 18 112/66 (81) 97 Room Air 07/07/17 14:30 130 103/63 (76) 132 87/55 (66) 146 70/43 (52) 07/07/17 13:45 36.8 131 18 122/71 (88) 95 Room Air Laboratory Results 24 Hours: Test 07/08/17 07:18 White Blood Count 12.22 K/uL Red Blood Count 3.76 M/uL Hemoglobin 11.5 g/dL Hematocrit 34.3 % Mean Corpuscular Volume 91.2 fL Mean Corpuscular Hemoglobin 30.6 pg Mean Corpuscular Hemoglobin Concent 33.5 g/dl Platelet Count 209 K/uL Mean Platelet Volume 9.1 fL Neutrophils (%) (Auto) 61.5 % Lymphocytes (%) (Auto) 26.8 % Monocytes (%) (Auto) 8.4 % Eosinophils (%) (Auto) 1.0 % Basophils (%) (Auto) 0.1 % Neutrophils # (Auto) 7.52 K/uL Lymphocytes # (Auto) 3.27 K/uL Monocytes # (Auto) 1.03 K/uL Eosinophils # (Auto) 0.12 K/uL Basophils # (Auto) 0.01 K/uL Assessment & Plan Assessment: Postop day 2 revision decompression with instrumented fusion. Plan: Had very long discussion with the patient. All questions are answered in great detail. Today we will continue with physical therapy. We will maintain MARK drain and dressing. DVT prophylaxis in the form teds and SCDs. Continue with pain control. Anticipate discharge home tomorrow. Inhouse Planning DVT Prophylaxis: TEDs, SCDs Discharge Planning Discharge Planning: home DVT Prophylaxis: [place]
[2017-07-08] MEDS: CHOLECALCIFEROL 1000 INTER.UNIT TAB PO SCH (09:29)
[2017-07-08] MEDS: CYANOCOBALAMIN 500 MCG TAB (VIT B-12) PO SCH (09:30)
[2017-07-08] MEDS: BACLOFEN 10 MG TAB PO SCH ×4 (09:30→21:06)
[2017-07-08] MEDS: DOCUSATE SODIUM 100 MG CAP PO SCH ×2 (09:30→21:06)
[2017-07-08] MEDS: GABAPENTIN 400 MG CAP PO SCH ×3 (09:31→21:06)
[2017-07-08] MEDS: BuPROPion SR 100 MG TABCR PO SCH ×2 (09:31→21:06)
[2017-07-08] MEDS: OXYCODONE HCL IR 5 MG TAB (IMMEDIATE RELEASE) PO PRN ×4 (09:39→21:06)
[2017-07-08 15:13] VITALS: BP 119/78; PULSE 118; TEMP 36.6; O2SAT 95
--- NOTE | 2017-07-08 18:20 | Hospitalist Progress Note ---
Hospitalist Progress Note Date of Service Jul 08, 2017. Subjective Pt evaluation today including: conversation w/ patient, conversation w/ family Patient reports had intermittent dizziness every time she woke up last night and felt a little bit nauseated. Still some dizziness with getting up today but better. Still feels like it is hard to get her urine out, but is able to do so. Still no bowel movement in 8 days now. Back pain is fairly severe but she is trying not to take pain medicine all that much. She denies chest pain, but does feel like she cannot quite get a deep breath. Continues to be tachycardic at rest. Constitutional: No fever Cardiovascular: No chest pain All Other Systems: Reviewed and Negative Objective Vital Signs Date Time Temp Pulse Resp B/P (MAP) Pulse Ox O2 Delivery O2 Flow Rate FiO2 07/08/17 15:45 Room Air 07/08/17 15:13 36.6 118 16 119/78 (92) 95 Room Air 07/08/17 07:46 Room Air 07/08/17 07:20 36.6 105 16 125/85 (98) 98 Room Air 07/08/17 00:54 102 18 117/74 (88) 98 Room Air 07/07/17 23:54 Room Air 07/07/17 23:13 36.7 105 20 102/65 (77) 99 Room Air Physical Exam General Appearance: WD/WN, no apparent distress, + obese Eyes: normal inspection, sclerae normal ENT: hearing grossly normal Neck: trachea midline Respiratory/Chest: lungs clear, normal breath sounds, no respiratory distress, no accessory muscle use Cardiovascular: no murmur, + tachycardia (With regular rhythm) Abdomen: normal bowel sounds, non tender, soft (With mild distention) Extremities: non-tender, normal inspection, no pedal edema, no calf tenderness Neurologic/Psychiatric: alert, oriented x 3, + pertinent finding (Anxious, talkative) Skin: normal color, warm/dry, no rash Laboratory Results Last 24 Hours Test 07/08/17 04:56 07/08/17 07:18 Bedside Glucose 80 mg/dl White Blood Count 12.22 K/uL Red Blood Count 3.76 M/uL Hemoglobin 11.5 g/dL Hematocrit 34.3 % Mean Corpuscular Volume 91.2 fL Mean Corpuscular Hemoglobin 30.6 pg Mean Corpuscular Hemoglobin Concent 33.5 g/dl Platelet Count 209 K/uL Mean Platelet Volume 9.1 fL Neutrophils (%) (Auto) 61.5 % Lymphocytes (%) (Auto) 26.8 % Monocytes (%) (Auto) 8.4 % Eosinophils (%) (Auto) 1.0 % Basophils (%) (Auto) 0.1 % Neutrophils # (Auto) 7.52 K/uL Lymphocytes # (Auto) 3.27 K/uL Monocytes # (Auto) 1.03 K/uL Eosinophils # (Auto) 0.12 K/uL Basophils # (Auto) 0.01 K/uL RDW Standard Deviation 44.5 fL RDW Coefficient of Variation 13.3 % Immature Granulocyte % (Auto) 2.2 % Immature Granulocyte # (Auto) 0.27 K/uL Sodium Level 140 mmol/L Potassium Level 3.6 mmol/L Chloride Level 108 mmol/L Carbon Dioxide Level 29 mmol/L Anion Gap 4.0 mmol/L Blood Urea Nitrogen 13 mg/dl Creatinine 0.68 mg/dl Est Creatinine Clear Calc Drug Dose 115.3 ml/min Estimated GFR () 131.3 Estimated GFR (Non- 113.3 BUN/Creatinine Ratio 18.5 Random Glucose 85 mg/dl Calcium Level 7.5 mg/dl Assessment and Plan 36yo female - Severe lumbar back pain with radicular pain in the left leg 2nd to large disc herniation at L4-L5, POD #5 - s/p decompression and removal of disc fragments by Dr. Kang Despite surgery, steroids, and ongoing supportive care/pain control she continued w/ severe, ongoing radicular pain down the left leg. Repeat MRI l-spine on 07/06 suggested re-herniation of disc contents. Unfortunately she had to return to the OR on 07/06 w/ orthopedics for a revision of her decompression as well as lumbar fusion procedure. Defer management to Dr. Kang's team. PT/OT, pain control, dressing changes all as per orthopedics -Plan is for possible discharge to home tomorrow -Continue gabapentin increased to 400mg TID this admission for her radicular symptoms. -Continue baclofen for muscle spasm -Continue Dilaudid and oxycodone, as well as Toradol as needed for pain -Watch for urinary retention and straight cath as needed-discussed with nurse to check a postvoid residual bladder scan every shift-seems to be normal Asthma - intermittent symptoms from such; cont albuterol prn Hypothyroidism - cont synthroid, most recent TSH wnl (04/2017). Hypokalemia - resolved. Chronic use of phentermine to assist w/ weight loss - patient had asked to have this resumed while here; this medication is non-formulary; would simply resume upon return home. Also, the phentermine can cause tachycardia and she has had problems with rapid HR while here. FEN - diet as tolerated 7. migraines - stable, no h/a at this time. Is on gabapentin and amitriptyline for this for prevention Urinary retention-improved. Urine micro with yeast; urine culture with Gardnerella-like bacteria, no need to treat. Likely secondary to opioids plus TCAs causing urinary retention, as well as pelvic floor muscle tension due to pain and anxiety -Bladder scan as above as needed and straight cath as needed Constipation - this is a chronic issue for her at home requiring linzess. Still ongoing with no bowel movement in 8 days The linzess has been resumed and she is also on miralax every 6 hours. -Give bisacodyl suppository now and fleets enema later this evening if no results -Encouraged ambulation as allowed DVT proph - SCDs, chemical means contraindicated due to spinal surgery. Sinus tachycardia - likely due to pain and anxiety, also treated with steroids. Also with a history of POTS. Orthostatics positive on 07/07. She is not hypoxic and no chest pain. No evidence of DVT on exam, very low test probability for PE. Hemoglobin with small drop after surgery but not significant enough to cause tachycardia. Heart rate slightly improved compared yesterday after starting normal saline -Continue normal saline at 125 ML's per hour to see if helps -Treat anxiety as needed -Discussed with patient possibility although remote of PE-we will check CT chest with PE protocol today Disposition-remain on the medical floor until cleared to return home by orthopedic surgery
--- NOTE | 2017-07-08 19:26 | DIAGNOSTIC IMAGING REPORT ---
(CHEST FOR PE) ANGIO WITH CT DOSE: 494.44 mGy.cm HISTORY: Chest pain dyspnea TECHNIQUE: Multiaxial CT images of the chest were performed following the intravenous administration of contrast to evaluate the pulmonary arteries. Maximal intensity projection images were also obtained. A dose lowering technique was utilized adhering to the principles of ALARA. COMPARISON STUDY: None. FINDINGS: There is a normal caliber thoracic aorta with no evidence for dissection. There is no evidence for pulmonary embolus. No pleural effusions. No pneumothorax. The liver and spleen are unremarkable. No mediastinal or hilar lymphadenopathy. The central airways are patent. The lungs are clear. IMPRESSION: No evidence for pulmonary embolus. The lungs are clear. The above report was generated using voice recognition software. It may contain grammatical, syntax or spelling errors. Electronically signed by: Dennis Feldman M.D. 07/08/2017 7:25 PM Dictated Date/Time: 07/08/2017 7:23 PM
[2017-07-08] MEDS ORDERED: OPTIRAY 320 IV PRN (19:30)
[2017-07-08] MEDS: AMITRIPTYLINE HCL 50 MG TAB PO SCH (21:06)
[2017-07-08] MEDS: DOCUSATE SODIUM/SENNA 50/8.6MG TAB PO SCH (21:06)
[2017-07-08 23:29] VITALS: BP 106/74; PULSE 113; TEMP 36.8; O2SAT 97
[2017-07-09] MEDS: LEVOTHYROXINE 50 MCG TAB PO SCH (05:24)
[2017-07-09] MEDS: LINACLOTIDE 290 MCG CAP PO SCH (05:25)
[2017-07-09] MEDS: POLYETHYLENE (MIRALAX) 17 GM PACK PO SCH ×2 (05:25→12:00)
[2017-07-09] MEDS: BACLOFEN 10 MG TAB PO SCH ×4 (07:37→21:40)
[2017-07-09] MEDS: SODIUM CHLORIDE 0.9% 1000ML 1,000 ML IV SCH (07:37)
[2017-07-09] MEDS: OXYCODONE HCL IR 5 MG TAB (IMMEDIATE RELEASE) PO PRN ×3 (07:37→18:19)
[2017-07-09] MEDS: KETOROLAC TROMETHAMINE 30 MG/ML VIAL IV PRN (07:38)
[2017-07-09 07:43] VITALS: BP 118/82; PULSE 101; TEMP 36.7; O2SAT 97
[2017-07-09] MEDS: BuPROPion SR 100 MG TABCR PO SCH ×2 (08:38→21:41)
[2017-07-09] MEDS: CHOLECALCIFEROL 1000 INTER.UNIT TAB PO SCH (08:39)
[2017-07-09] MEDS: DOCUSATE SODIUM 100 MG CAP PO SCH ×2 (08:39→21:00)
[2017-07-09] MEDS: CYANOCOBALAMIN 500 MCG TAB (VIT B-12) PO SCH (08:39)
[2017-07-09] MEDS: GABAPENTIN 400 MG CAP PO SCH ×3 (08:39→21:40)
[2017-07-09] MEDS ORDERED: MAGNESIUM CITRATE 296 ML/BTL PO PRN (09:00)
--- NOTE | 2017-07-09 09:02 | Orthopedic Progress Note ---
Orthopedic Progress Note Date of Service Jul 09, 2017. Subjective Post OP Day: 3 Additional Notes: Diane is postoperative day 3 revision decompression instrument infusion. Leg pain has greatly improved. Back pain is relatively controlled. She is passing flatus but no bowel movement. Yesterday physical therapy ambling roughly 250 feet. MARK drain output last shift was 35 cc. She underwent a chest CT which was negative for PE last evening. No other new complaints. Objective calves soft nontender, N/V intact, dressing C/D/I, A&O x3, toes mobile She is lying in bed. Seen in conjunction with her . Lower extremity are neurovascular intact. Calves are soft nontender bilaterally. No obvious distress. Date Time Temp Pulse Resp B/P (MAP) Pulse Ox O2 Delivery O2 Flow Rate FiO2 07/09/17 08:15 Room Air 07/09/17 07:43 36.7 101 18 118/82 (94) 97 Room Air 07/08/17 23:40 Room Air 07/08/17 23:29 36.8 113 16 106/74 (85) 97 Room Air 07/08/17 15:45 Room Air 07/08/17 15:13 36.6 118 16 119/78 (92) 95 Room Air Assessment & Plan Assessment: Postop day 3 revision decompression with instrumented fusion. Plan: Had very long discussion with the patient. All questions are answered in great detail. Today we will continue with physical therapy. She is going to focus on steps. We will maintain MARK drain and dressing. DVT prophylaxis in the form teds and SCDs. Continue with pain control. We will also continue with aggressive bowel regimen. I have ordered mag citrate. Anticipate discharge home tomorrow after she has had a bowel movement and completed steps in therapy. Inhouse Planning DVT Prophylaxis: TEDs, SCDs Discharge Planning Discharge Planning: home DVT Prophylaxis: Lenore
[2017-07-09 15:26] VITALS: BP 108/75; PULSE 110; TEMP 36.8; O2SAT 100
--- NOTE | 2017-07-09 15:39 | Hospitalist Progress Note ---
Hospitalist Progress Note Date of Service Jul 09, 2017. Subjective Pt evaluation today including: conversation w/ patient, conversation w/ family Drinks mag citrate this morning has had numerous bowel movement since then. Still mildly tachycardic, overall feels much better. Pain is controlled and got up with PT today. All Other Systems: Reviewed and Negative Objective Vital Signs Date Time Temp Pulse Resp B/P (MAP) Pulse Ox O2 Delivery O2 Flow Rate FiO2 07/09/17 15:26 36.8 110 18 108/75 (86) 100 Room Air 07/09/17 08:15 Room Air 07/09/17 07:43 36.7 101 18 118/82 (94) 97 Room Air 07/08/17 23:40 Room Air 07/08/17 23:29 36.8 113 16 106/74 (85) 97 Room Air 07/08/17 15:45 Room Air Physical Exam General Appearance: WD/WN, no apparent distress Eyes: normal inspection, sclerae normal ENT: hearing grossly normal Neck: trachea midline Respiratory/Chest: lungs clear, normal breath sounds, no respiratory distress, no accessory muscle use Cardiovascular: + tachycardia (With regular rhythm) Abdomen: normal bowel sounds, non tender, soft Extremities: normal inspection, no pedal edema, no calf tenderness Neurologic/Psychiatric: alert, normal mood/affect, oriented x 3 Skin: normal color, warm/dry, no rash Diagnostic Results CTA chest-negative for PE Assessment and Plan 36yo female - Severe lumbar back pain with radicular pain in the left leg 2nd to large disc herniation at L4-L5, POD #6 - s/p decompression and removal of disc fragments by Dr. Kang Despite surgery, steroids, and ongoing supportive care/pain control she continued w/ severe, ongoing radicular pain down the left leg. Repeat MRI l-spine on 07/06 suggested re-herniation of disc contents. Unfortunately she had to return to the OR on 07/06 w/ orthopedics for a revision of her decompression as well as lumbar fusion procedure. Defer management to Dr. Kang's team. PT/OT, pain control, dressing changes all as per orthopedics -Plan is for possible discharge to home tomorrow -Continue gabapentin increased to 400mg TID this admission for her radicular symptoms. -Continue baclofen for muscle spasm -Continue Dilaudid and oxycodone, as well as Toradol as needed for pain -No further issues with urinary retention Asthma - intermittent symptoms from such; cont albuterol prn Hypothyroidism - cont synthroid, most recent TSH wnl (04/2017). Hypokalemia - resolved. Chronic use of phentermine to assist w/ weight loss - patient had asked to have this resumed while here; this medication is non-formulary; would simply resume upon return home. Also, the phentermine can cause tachycardia and she has had problems with rapid HR while here. FEN - diet as tolerated Migraines - stable Is on gabapentin and amitriptyline for this for prevention Urinary retention-resolved. Urine micro with yeast; urine culture with Gardnerella-like bacteria, no need to treat. Likely secondary to opioids plus TCAs causing urinary retention, as well as pelvic floor muscle tension due to pain and anxiety -Bladder scan as above as needed and straight cath as needed Constipation -resolved-this is a chronic issue for her at home requiring linzess. Now with numerous bowel movements after none in 8 days, resolved with mag citrate The linzess has been resumed and she is also on miralax every 6 hours. DVT proph - SCDs, chemical means contraindicated due to spinal surgery. Sinus tachycardia - likely due to pain and anxiety, also treated with steroids. Also with a history of POTS. Orthostatics positive on 07/07. She is not hypoxic and no chest pain. No evidence of DVT on exam, very low test probability for PE. Hemoglobin with small drop after surgery but not significant enough to cause tachycardia. Only slight improvement with 2 days of normal saline. CTA of the chest was negative for PE or any other significant abnormality -DC IV fluids -Treat anxiety as needed Disposition-likely discharged home tomorrow now that constipation resolved
[2017-07-09] MEDS: DOCUSATE SODIUM/SENNA 50/8.6MG TAB PO SCH (21:00)
[2017-07-09] MEDS: AMITRIPTYLINE HCL 50 MG TAB PO SCH (21:40)
[2017-07-09 23:18] VITALS: BP 123/74; PULSE 111; TEMP 36.7; O2SAT 93
[2017-07-10] MEDS: LINACLOTIDE 290 MCG CAP PO SCH (05:45)
[2017-07-10] MEDS: LEVOTHYROXINE 50 MCG TAB PO SCH (05:45)
[2017-07-10 07:49] VITALS: BP 118/73; PULSE 92; TEMP 36.5; O2SAT 97
[2017-07-10] MEDS: BuPROPion SR 100 MG TABCR PO SCH (09:11)
[2017-07-10] MEDS: GABAPENTIN 400 MG CAP PO SCH (09:11)
[2017-07-10] MEDS: CHOLECALCIFEROL 1000 INTER.UNIT TAB PO SCH (09:11)
[2017-07-10] MEDS: BACLOFEN 10 MG TAB PO SCH (09:12)
[2017-07-10] MEDS: DOCUSATE SODIUM 100 MG CAP PO SCH (09:12)
[2017-07-10] MEDS: CYANOCOBALAMIN 500 MCG TAB (VIT B-12) PO SCH (09:13)
[2017-07-10 10:18] VITALS: BP 118/73; PULSE 92; TEMP 36.5; O2SAT 97
--- NOTE | 2017-07-10 12:10 | Discharge Summary ---
Orthopedic Discharge Summary Admission Date/Reason Jul 02, 2017 at 09:26 Sciatica. Discharge Date/Disposition Jul 10, 2017 Home Diagnosis Principal Diagnosis: Lumbar disc herniation Admission Physical Exam As per Admitting History & Physical. Hospital Course Patient was admitted to the hospital with severe left leg pain and inability to ambulate and take care of herself. After review of the imaging discussion with the family we elected to undergo a lumbar decompression discectomy procedure. She had this on Monday. Tolerated it well and did nicely for the first 24 hours. Unfortunately his symptoms returned quite limiting nature and updated MRI demonstrated recurrence at the L4-5 level. Subsequently we elected to perform a revision decompression complete discectomy and fusion. She underwent this procedure without difficulty and postoperatively was up and ambulatory with leg symptoms steadily improving. She progressed throughout the weekend MARK drain decreasing appropriately. Subsequently was discharged home on Monday discharge orders and instructions found in the chart for further review. Discharge Instructions Please refer to the electronic Patient Visit Report (Discharge Instructions) for additional information.
== END 2017-07-10 11:30 | disposition home or self-care (01) | DRG 455 ==
LOC: EDBD 19:07 → C.EDD 19:09 → C.MSN 07-02 01:23 → EDBEDREQ 07-02 01:26 → ENRESERV 07-02 01:29 → OBSVTOIN 07-02 09:26
PROVIDERS: ADMIT Orthopaedic Surgery Orthopaedic Surgery of the Spine; ATTEND Internal Medicine
PROC: 0SB20ZZ Excision of Lumbar Vertebral Disc, Open Approach (ICD-10-PCS; principal; 2017-07-03 07:45)
PROC: 0SG0071 Fusion of Lumbar Vertebral Joint with Autologous Tissue Substitute, Posterior Approach, Posterior Column, Open Approach (ICD-10-PCS; 2017-07-06)
PROC: 0SG00AJ Fusion of Lumbar Vertebral Joint with Interbody Fusion Device, Posterior Approach, Anterior Column, Open Approach (ICD-10-PCS; 2017-07-06)
DX: M51.16 Intervertebral disc disorders with radiculopathy, lumbar region (principal); R00.0 Tachycardia, unspecified; R33.9 Retention of urine, unspecified; E87.6 Hypokalemia; K59.00 Constipation, unspecified; F32.9 Major depressive disorder, single episode, unspecified; E03.9 Hypothyroidism, unspecified; E53.8 Deficiency of other specified B group vitamins; G43.909 Migraine, unspecified, not intractable, without status migrainosus; J45.909 Unspecified asthma, uncomplicated; Z79.52 Long term (current) use of systemic steroids; Z79.899 Other long term (current) drug therapy; Z86.14 Personal history of Methicillin resistant Staphylococcus aureus infection; Z91.040 Latex allergy status; Z88.8 Allergy status to other drugs, medicaments and biological substances

== ENCOUNTER 2019-08-12 05:55 | Observation (INO) ==
--- NOTE | 2019-08-09 08:21 | Anesthesiology Consultation ---
Date of Service August 09, 2019 Assessment & Plan (1) Encounter for pre-operative examination: COVID Status: As of 08/07 nurse assessment, patient denies travel to endemic area, known exposure/sick contacts, symptoms, or testing for coronavirus. test AM DOS. Chart Review Chart Review: Acceptable Risk for Surgery and Patient NOT seen in Pre Admission Testing History Surgery Operation Date: 08/12/19 07:30 Proposed Procedures p Bilateral Mammoplasty Reduction - Tessa Pemberton MD Height/Weight Height: 5 ft 2 in Weight: 67.585 kg Allergies Allergy/AdvReac Type Severity Reaction Status Date / Time latex Allergy Severe HIVES, Verified 08/08/19 14:34 RASH, BLISTERED SKIN citalopram Allergy Unknown thought Verified 08/08/19 14:34 changes orange Allergy Unknown ITCHY AND Verified 08/08/19 14:34 SWELLING gabapentin AdvReac Intermediate Memory Verified 08/08/19 14:34 Issues Medications Home Medications Medication Instructions Recorded Confirmed Last Taken Mirena 20 mcg INTRAUTERINE DIRECTED 05/02/18 08/08/19 05/16/18 levothyroxine 75 mcg tablet 75 mcg PO QAM 90 Days #90 tab 11/08/18 08/08/19 Unknown diclofenac sodium 1 % topical gel 2 gm TOP QID PRN 11/30/18 08/08/19 Unknown fremanezumab-vfrm 225 mg/1.5 mL 225 mg SQ MONTHLY ml 11/30/18 08/08/19 Unknown subcutaneous syringe albuterol sulfate 90 mcg/actuation 2 puff INHALATION QID PRN #18 gm 12/18/18 08/08/19 Unknown aerosol inhaler topiramate 50 mg tablet 50 mg PO BID 30 Days #60 tab 03/04/19 08/08/19 Unknown bupropion HCl 200 mg tablet,12 hr 200 mg PO BID #60 ea 03/27/19 08/08/19 Unknown sustained-release afoolfazso-vkzvnpxkmaaft-xbhtpitz 1 tab PO .COMPLEX PRN 30 Days #30 04/10/19 08/08/19 Unknown 50 mg-325 mg-40 mg tablet tab tramadol 50 mg tablet 50 mg PO DAILY PRN #30 tab 04/25/19 08/08/19 Unknown cholecalciferol (vitamin D3) 25 25 mcg PO DAILY 05/22/19 08/08/19 Unknown mcg (1,000 unit) capsule cyanocobalamin (vitamin B-12) 500 50,000 mcg PO DAILY 05/22/19 08/08/19 Unknown mcg tablet escitalopram oxalate 10 mg tablet 10 mg PO QAM #90 tab 08/07/19 08/08/19 Unknown duloxetine [Cymbalta] 30 mg PO QAM 08/08/19 08/08/19 Unknown oxycodone-acetaminophen 5 mg-325 1 tab PO Q4H PRN 3 Days #18 tab 08/08/19 08/08/19 Unknown mg tablet phentermine 37.5 mg PO QAM 08/08/19 08/08/19 Unknown Past Medical History Medical History Anxiety Asthma EXERCISE INDUCED ASTHMA Chronic back pain Closed left fibular fracture (Resolved) Degenerative disc disease Depression GERD (gastroesophageal reflux disease) History of lower leg fracture Hypothyroidism Kidney stones Migraine Osteoarthritis Polyarthritis Post traumatic stress disorder Sensorineural hearing loss (SNHL) of both ears Using hearing aids Past Family History Family History Grandfather Family history of diabetes mellitus Uncle Family history of diabetes mellitus Aunt FHx: Hodgkin's disease Father FHx: skin cancer Grandfather (Paternal) FHx: testicular cancer Prostate cancer Grandmother (Maternal) FHx: breast cancer Breast cancer Denies family history of Ovarian cancer Myocardial infarction Colorectal cancer Past Surgical History Surgical History History of appendectomy History of back surgery L4-L5 Decompression/Fusion (07/06/17): Grade 2 View, ETT #7.5, MAC #3 L4-L5 Decompression (07/03/17): Grade 1 View, ETT #7.0, MAC #3 History of lithotripsy History of tonsillectomy Hx of ankle fusion LEFT ANKLE X2 Hx of wisdom tooth extraction x2 Status post laparoscopic cholecystectomy (Inactive) Social History Smoking Status: Never smoker Do You Dip or Chew Tobacco: No Hx Alcohol Use: No Hx Substance Use: No substance use type: does not use Testing Laboratory Results 08/08/19 WBC: 10.05 H/H: 14.8/42.7 PLATELETS: 242 SODIUM: 142 POTASSIUM: 3.7 CHLORIDE: 110 CO2: 26 BUN: 16 CREATININE: 0.90 GLUCOSE: 120 PT: 10 PTT: 26.5 INR: 0.9
[2019-08-12] MEDS ORDERED: CEFAZOLIN 2000MG 2,000 MG/15 ML SYR IV SCH (06:00)
[2019-08-12] MEDS ORDERED: LR 15ML/HR IV SCH (06:00)
--- NOTE | 2019-08-12 06:48 | History & Physical Bridge Note ---
Date of Service August 12, 2019 History & Physical Bridge Note I have examined the patient, reviewed the History & Physical and in the interval since the performance of the History & Physical I have noted the following changes of clinical significance: no changes noted Patient is aware of COVID-19 risks, is asymptomatic of any COVID-19 symptoms, and has not had any testing for COVID-19.
[2019-08-12] MEDS ORDERED: fentaNYL citrate 100 MCG/2 ML VIAL ONE ×2 (06:57→12:30)
[2019-08-12] MEDS ORDERED: MIDAZOLAM HCL 1 MG/ML 2ML VIAL ONE (06:57)
[2019-08-12] MEDS ORDERED: BUPIVACAINE 0.25% 30 ML VIAL ONE (07:07)
[2019-08-12] MEDS ORDERED: LIDOCAINE/EPINEPHRINE 1% 20 ML VIAL ONE (07:07)
[2019-08-12] MEDS ORDERED: BUPIVACAINE 0.5 % 5 MG/1 ML PF 10ML VIAL ONE (07:20)
[2019-08-12] MEDS ORDERED: NEOSTIGMINE METHYLSULFATE 5 MG/5 ML SYR ONE (09:05)
[2019-08-12] MEDS ORDERED: ROCURONIUM BROMIDE 10 MG/ML 5 ML VIAL ONE ×3 (09:05→09:56)
[2019-08-12] MEDS ORDERED: DEXAMETHASONE SOD INJ 4 MG/ML VIAL ONE (09:05)
[2019-08-12] MEDS ORDERED: ONDANSETRON INJ 2 MG/ML 2 ML VIAL ONE (09:05)
[2019-08-12] MEDS ORDERED: GLYCOPYRROLATE 0.2 MG/ML VIAL ONE (09:05)
[2019-08-12] MEDS ORDERED: LARYING-O-JET KIT (LTA) ONE (09:05)
[2019-08-12] MEDS ORDERED: LIDOCAINE HCL 2% 2 ML VIAL/AMP(20MG/ML) INFIL ONE (09:05)
[2019-08-12] MEDS ORDERED: PROPOFOL IV EMULSION 10 MG/ML 20 ML VIAL IV ONE (09:05)
[2019-08-12] MEDS ORDERED: LABETALOL HCL IV 5 MG/ML 20ML IV ONE (10:20)
--- NOTE | 2019-08-12 11:37 | Post Operative Brief Note ---
PG Immediate Post Op with CF Date of Surgery August 12, 2019 Pre & Post Diagnosis Operation Date: 08/12/19 07:30 Pre-Op Diagnosis: Symptomatic Macromastia Post-Op Diagnosis: Symptomatic Macromastia I identified the patient and participated in the time-out.: Yes Procedure Operation Date: 08/12/19 07:30 Actual Procedures p Bilateral Breast Reduction(Bilateral) - Tessa Pemberton MD Surgeon Tessa Pemberton MD Program Arranger Kiesha Joiner PA-C Estimated Blood Loss 25 Findings Consistent with Post-Op Diagnosis Specimens Specimen Description: Permanent Specimen A: Left breast tissue, 504 grams B: Right breast tissue, 510 grams Drains Prem-Delcid Drain
--- NOTE | 2019-08-12 11:39 | Operative Report ---
PG Post Operative Report Pre & Post Diagnosis Operation Date: 08/12/19 07:30 Pre-Op Diagnosis: Symptomatic Macromastia Post-Op Diagnosis: Symptomatic Macromastia I identified the patient and participated in the time-out.: Yes Procedure Operation Date: 08/12/19 07:30 Actual Procedures p Bilateral Breast Reduction(Bilateral) - Tessa Pemberton MD Surgeon Tessa Pemberton MD Bed Manager Kiesha Joiner PA-C Estimated Blood Loss 25 Findings Consistent with Post-Op Diagnosis Specimens left breast 504 g, right breast 510 g to pathology Drains [id number] Anesthesia Type General Regional Complications none Disposition Disposition: Recovery Room Indications back, neck and shoulder pain due to macromastia Description of Procedure The risks, benefits, and alternatives of the procedure were explained to the patient who agreed and signed consent. She was identified and marked in the preoperative holding area. She was brought to the operating room where she was positioned supine and placed under general anesthesia without incident. Surgical site was prepped and draped sterilely. A time-out procedure was performed. I began with the left side. Markings were reassessed and a 7 cm pedicle was marked. 1% lidocaine with epinephrine was used to anesthetize the planned incisions. A 38 mm cookie cutter was used to circumscribe the nipple-areolar complex. The previously marked 7 cm pedicle was incised using a 15 blade scalpel and deepithelized. I began with the medial dissection of the pedicle using electrocautery. Cautery was used to incise through dermis and breast parenchyma down to the chest wall, taking care not to undermine the pedicle during dissection. A similar procedure was undertaken on the lateral aspect of the pedicle again taking care not to undermine. Lastly, the pedicle was dissected out superiorly using electrocautery and this was carried down to the chest wall as well. I then began with excision of the medial breast tissue followed by lateral aspect of the breast tissue and surrounding keyhole incision. A 15 blade scalpel was used to make the inframammary fold incision and electrocautery was used to deepen the incision through dermis and breast parenchyma. Dissection was then carried superiorly to the level of the superior incision. Superior incision was then incised using a 15 blade scalpel and again dissected using electrocautery. This was undertaken laterally and then around the keyhole portion of the incision. Care was taken to leave some fat on the lateral pectoralis fascia in order to protect the T4 intercostal nerve. Hemostasis was achieved with electrocautery. The specimen was passed off in its entirety for weighing. Additional resection was undertaken from the superior flap in order to facilitate closure of the breast and to provide the best shape. The total resection weight of the left breast was 504 grams. The wound was irrigated with saline and hemostasis was achieved with electrocautery. A 15 Faroese Alonso drain was brought out through a separate stab incision. The nipple-areolar complex was brought into the keyhole using 2-0 Vicryl deep dermal suture. The wound was closed first in a lateral to mid breast direction and then medial to mid breast direction using 2-0 Vicryl deep dermal sutures. Vertical limb was also approximated using 2-0 Vicryl deep dermals and the nipple-areolar complex was inset using 2-0 Vicryl deep dermal sutures. Next, the superficial dermal layer was closed using 2-0 PDO running Quill suture along the inframammary fold and 3-0 PDS interrupted dermal sutures along the vertical limb and nipple- areolar complex. Lastly 3-0 Monocryl running subcuticular suture was placed. A similar procedure was undertaken on the right side with maximal excision weight of 510 grams. Breasts were symmetric and nipple-areolar complexes were viable bilaterally following wound closure. Dermabond Prineo was applied along the inframammary fold and vertical limb and Dermabond was placed around the nipple-areolar complex. Dry dressings and a surgical bra were placed. The patient was awakened and transferred to recovery room in satisfactory condition. Kiesha Joiner PA-C was present and scrubbed throughout the procedure and was instrumental in providing retraction during dissection of the pedicle and assisting in wound closure. I attest to the content of the Intraoperative Record and any orders documented therein. Any exceptions are noted below.
[2019-08-12] MEDS ORDERED: PROMETHAZINE HCL 12.5 MG in SODIUM CHLORIDE 0.9% 50 ML IV PRN (11:49)
[2019-08-12] MEDS ORDERED: DiphenhydrAMINE HCL 50 MG/ML VIAL IV PRN (11:49)
[2019-08-12] MEDS ORDERED: ACETAMINOPHEN 325 MG TAB PO PRN (11:49)
[2019-08-12] MEDS ORDERED: MoRPHine SULFATE 10 MG/ML CARP/VIAL IV PRN (11:49)
[2019-08-12] MEDS ORDERED: LORazepam 0.5 MG TAB PO PRN (11:49)
[2019-08-12] MEDS ORDERED: MoRPHine SULFATE 4 MG/ML 1 ML CARP\\VIAL IV PRN (11:49)
[2019-08-12] MEDS ORDERED: OXYCODONE/ACETAMINOPHEN 5mg/325mg TAB PO PRN ×2 (11:49)
[2019-08-12] MEDS ORDERED: ONDANSETRON INJ 2 MG/ML 2 ML VIAL IV PRN ×2 (11:49→12:29)
[2019-08-12] MEDS ORDERED: PROMETHAZINE HCL 6.25 MG in SODIUM CHLORIDE 0.9% 50 ML IV PRN (12:29)
[2019-08-12] MEDS ORDERED: ATROPINE SULFATE 0.1 MG/ML 10ML SYR IV PRN (12:29)
[2019-08-12] MEDS ORDERED: ePHEDrine sulfate 50 MG/ML AMP IV PRN (12:29)
[2019-08-12] MEDS ORDERED: HYDROmorphone INJ 2 MG/ML SYR/VIAL IV PRN (12:29)
--- NOTE | 2019-08-12 12:30 | Anesthesiology Progress Note ---
Date of Service August 12, 2019 Anesthesia Post Procedure Vital Signs Vital Signs: Temp Pulse Pulse Resp BP BP Pulse Ox 08/12/19 12:07 36.7 C 87 16 135/97 97 08/12/19 06:43 36.6 C 109 H 16 151/94 H 93 Pain Intensity Bilateral Breast: Pain Intensity: 6 Head: Pain Intensity: 7 Transfer of Care Handoff Completed per policy Notes Mental Status: alert / awake / arousable Patient Amnestic to Procedure: Yes Nausea / Vomiting: adequately controlled Pain: adequately controlled Airway Patency, RR, SpO2: stable & adequate BP & HR: stable & adequate Hydration State: stable & adequate Anesthetic Complications: no major complications apparent
[2019-08-12] MEDS: fentaNYL citrate 100 MCG/2 ML VIAL IV PRN ×2 (12:34→12:39)
[2019-08-12] MEDS ORDERED: BUTALBITAL/ACETAMIN/CAFFEINE TAB PO STA (13:11)
[2019-08-12] MEDS: D5W AND 1/2NSS + 20MEQ KCL 20 MEQ/1,000 ML BAG IV SCH (14:15)
[2019-08-12] MEDS: MoRPHine SULFATE 2 MG/ML CARP IV PRN ×2 (14:28→21:15)
[2019-08-12] MEDS: CEFAZOLIN 2000MG 2,000 MG/15 ML SYR IV SCH (16:05)
[2019-08-12] MEDS ORDERED: OXYCODONE HCL IR 5 MG TAB (IMMEDIATE RELEASE) PO PRN (17:32)
[2019-08-12] MEDS ORDERED: BUTALBITAL/ASPIRIN/CAFFEINE 1 TAB TAB PO PRN ×2 (17:34)
[2019-08-13] MEDS: CEFAZOLIN 2000MG 2,000 MG/15 ML SYR IV SCH (00:08)
[2019-08-13] MEDS: D5W AND 1/2NSS + 20MEQ KCL 20 MEQ/1,000 ML BAG IV SCH (03:41)
--- NOTE | 2019-08-13 08:22 | Surgery Progress Note ---
Date of Service August 13, 2019 Assessment & Plan (1) Breast hypertrophy: POD #1 s/p Bilateral Breast Reduction She is doing well. Reports that she sees an improvement in her back pain since surgery. She is tolerating a regular diet and is able to ambulate in her room without issue. MARK drains x 2 removed at bedside without issue and optifoam dressings placed at drain sites. Pt ok for discharge to home today. Discharge instructions reviewed with patient. She has a follow-up TeleHealth visit tomorrow. Subjective Diane is resting comfortable in bed. She reports that her pain is well- controlled. She is ambulating in her room, to and from the restroom, without issue. She denies nausea. She is tolerating a regular diet. Physical Exam Physical Exam: On physical exam- surgical bra in place. surgical dressings are clean, intact. bilateral breast incisions are clean, dry, and intact with dermabond and surgical tape in place. There are no signs of infection or wound dehiscence. Nipples are viable and with sensation. MARK drains with serosang drainage. MARK drains x 2 removed today at bedside without issue. Optifoam dressings placed on either side. Results & Data Vital Signs (Past 12 Hours) Vital Signs Temp Pulse Resp BP Pulse Ox 08/13/19 07:30 36.8 C 95 H 16 106/68 100 08/13/19 03:44 36.8 C 94 H 14 131/83 98 08/12/19 23:44 36.4 C L 99 H 14 136/87 100 PG Care Time/CCT Total # of Minutes Spent Total Time Spent with Patient: Total time spent is greater than 50% in coordination of care (as documented) at patient's floor/unit and/or counseling patient: Coding Level of Care Code 79394 Subseq Obs Care Lvl 1 Diagnoses Breast hypertrophy N62
[2019-08-13] MEDS ORDERED: MULTIVITAMIN TAB PO SCH (09:00)
--- NOTE | 2019-08-14 08:31 | Discharge Summary ---
Date of Service August 14, 2019 Admission HPI Per Admitting Provider Please see admission H & P. Admission Exam Per Admitting Provider Please see admission H & P. Principal Diagnosis Bilateral Symptomatic Macromastia Discharge Data Allergies Allergy/AdvReac Type Severity Reaction Status Date / Time latex Allergy Severe HIVES, Verified 08/12/19 06:34 RASH, BLISTERED SKIN citalopram Allergy Unknown thought Verified 08/12/19 06:34 changes orange Allergy Unknown ITCHY AND Verified 08/12/19 06:34 SWELLING gabapentin AdvReac Intermediate Memory Verified 08/12/19 06:34 Issues Procedures Performed Operation Date: 08/12/19 07:30 Actual Procedures p Bilateral Breast Reduction(Bilateral) - Tessa Pemberton MD Ordered Studies 08/12/19 06:51 US - OR guided needle placemen Routine Hospital Course (1) Breast hypertrophy: Diane is a 39- year-old female with Bilateral Symptomatic Macromastia. She was taken to the OR and underwent bilateral breast reduction. There were no intraoperative complications. She was taken to recovery and transferred to med/surg for observation. On POD #1 she was feeling well. She was tolerating a regular diet, voiding on her own, and ambulating without issue. On exam, her vitals were stable. Her incisions were clean, dry, intact. Nipples were viable. Her drains were removed without issue at bedside and optifoam dressings were placed. She was discharged home with instructions to follow-up with our office, via TeleHealth, in 1 day. All questions were answered. Total Time Total Time Spent Total Time Spent (In Minutes): 5 Discharge Plan Discharge Items Patient Disposition: Home - Self-Care Reason For Visit: Symptomatic Macromastia Discharge Diagnosis: Symptomatic Macromastia Activity: As commented below Non-emergency contact: Surgeon Call non-emergency contact if: you have any medication questions, your pain is not controlled, your temperature is above 101.5, your wound has increased redness and your wound has increased drainage Follow-up/Referrals: Karely Grullon MD [Primary Care Provider] - 08/19/19 11:15 am Diet: Regular Addtl Attending Provider Instructions: ACTIVITY RECOMMENDATIONS: __Normal activities _X_No bending, lifting or straining __No driving X__Driving allowed when you are off pain medications _X_Walking permitted __You should have help at home for ___ days DRESSINGS: __No dressings required _X_Keep surgical bra, dressings dry/in place until first office visit (TeleHealth visit tomorrow, 08/14/2019) __Remove dressings ___ and leave dressings off __Apply ice ___ days __Remove dressings and reapply garment __Apply antibiotic ointment (Bacitracin, Neosporin, etc) to wounds 3-4 times/day for 10 days BATHING: _X_Keep dressings dry X__Sponge bathing permitted, but keep surgical bra and dressings dry. __Showering permitted _X_No swimming, hot tubs or soaking in a tub MEDICATIONS: Resume previous medications unless instructed otherwise by your surgeon. Please hold Tramadol while taking Percocet (Oxycodone-Acetaminophen). _X_Do not use aspirin, Motrin, Advil or Ibuprofen as these may promote bleeding. Please use Tylenol. X__Prescription(s) provided: Prescription for pain medication provided at pre- operative visit. Please use as prescribed. SPECIAL CARE INSTRUCTIONS: * It is normal to have a mild fever after surgery. If your temperature is higher than 101.5 degrees F, please call the office at [phone]. * Constipation is a typical side effect of pain medication. An yvgm-igu-yyjgior stool softener will help relieve this. * Leaking around surgical drains may occur and should not cause concern. Sometimes these drains become clogged. If this happens, remove the bulb and milk the clot out of the tube, then replace the bulb. * Drainage from wounds after liposuction is normal and should be expected. Garments will become soiled. You should protect furniture and bedding. This drainage should mostly subside within 2-3 days. Leave garments in place unless instructed to remove them. * If you have unusual drainage from a wound or are concerned you have an infection or have any questions or concerns, please call the office at [phone]. FOLLOW UP VISIT: You have a TeleHealth visit scheduled for tomorrow, 08/14/2019. Please call our office at [phone] with any questions or concerns. Pending Studies at Discharge: Yes Studies:: Pathology report. Stand-Alone Forms: My [facility], Opioid Pain Management, Smoking Cessation Medications and DC Order Prescriptions: Continued levothyroxine 75 mcg tablet 75 mcg PO QAM 90 Days Qty: 90 RF: 3 bupropion HCl 200 mg tablet sustained-release 12 hr 200 mg PO BID Qty: 60 RF: 5 mlrkoiqqts-mcryotcqxdxtp-pkyz 50-325-40 mg tablet 1 tab PO .COMPLEX PRN (Reason: pain) 30 Days Qty: 30 RF: 2 escitalopram oxalate 10 mg tablet 10 mg PO QAM Qty: 90 RF: 1 diclofenac sodium [Voltaren] 1 % gel 2 gm TOP QID PRN (Reason: Pain) RF: 0 albuterol sulfate [Ventolin HFA] 90 mcg/actuation HFA aerosol inhaler 2 puff INHALATION QID PRN (Reason: Shortness Of Breath) Qty: 18 RF: 0 topiramate 50 mg tablet 50 mg PO BID 30 Days Qty: 60 RF: 5 duloxetine [Cymbalta] 30 mg capsule,delayed release(DR/EC) 30 mg PO QAM Qty: 30 RF: 5 Ajovy Autoinjector 225 mg/1.5 mL auto-injector 675 mg SQ .COMPLEX Qty: 4.5 RF: 1 oxycodone-acetaminophen [Percocet] 5-325 mg tablet 1 tab PO Q4H PRN (Reason: pain) 3 Days Qty: 18 RF: 0 cholecalciferol (vitamin D3) 25 mcg (1,000 unit) capsule 25 mcg PO DAILY RF: 0 Mirena 20 mcg/24 hr (5 years) Intrauterine Device 20 mcg Intrauterine DIRECTED RF: 0 cyanocobalamin (vitamin B-12) [Vitamin B-12] 500 mcg tablet 50,000 mcg PO DAILY RF: 0 phentermine 37.5 mg capsule 37.5 mg PO QAM RF: 0 Discontinued tramadol 50 mg tablet 50 mg PO DAILY PRN (Reason: Pain) Qty: 30 RF: 0 Discharge Orders: Discharge Order (Routine); Ordered 08/13/19 Ordered By: Therese Morrison Admission Data Admit Date/Time: 08/12/19 11:49 Attending Provider: Tessa Pemberton Admit Provider: Tessa Pemberton Primary Care Provider: Balabanova-Tsarnakov,Ralitsa V. Other Interventions: Discharge Summary Assessment (RN) Last Done: 08/13/19 10:01 DC Date/Time DO NOT enter until pt leaves facility: 08/13/19 10:40 Coding Level of Care Code 33635 OBS Care - Discharge Diagnoses Breast hypertrophy N62
== END 2019-08-13 10:40 | disposition home or self-care (01) ==
LOC: ASU 05:55 → 3E 05:55

== ENCOUNTER 2021-01-21 16:56 | Inpatient (IN) ==
[2021-01-21 20:34] LABS: Basophils # (auto) 0.02 K/uL (0-0.2); Basophils % (auto) 0.2 %; Eosinophils # (auto) 0.13 K/uL (0-0.5); Eosinophils % (auto) 1.3 %; Hematocrit (blood only) 42.1 % (37-47); Hemoglobin 14.1 g/dL (12.0-16.0); Immature Granulocytes # (auto) 0.01 K/uL (0.00-0.02); Immature Granulocytes % (auto) 0.1 %; Lymphocytes # (auto) 3.06 K/uL (1.2-3.4); Lymphocytes % (auto) 29.8 %; Mean Corpuscular Hemoglobin 29.7 pg (25-34); Mean Corpuscular Hgb Conc 33.5 g/dL (32-36); Mean Corpuscular Volume 88.8 fL (80-100); Mean Platelet Volume 9.6 fL (7.4-10.4); Monocytes # (auto) 0.33 K/uL (0.11-0.59); Monocytes % (auto) 3.2 %; Neutrophils # (auto) 6.73 K/uL (1.4-6.5); Neutrophils % (auto) 65.4 %; Platelet Count 265 K/uL (130-400); RDW Standard Deviation 42.7 fL (36.4-46.3); Red Blood Count 4.74 M/uL (4.2-5.4); White Blood Count 10.28 K/uL (4.8-10.8)
[2021-01-21 20:37] LABS: Appearance Urine Cloudy (Clear); Bacteria Urine Automated 1+ (Negative); Bilirubin Urine Negative (Negative); Blood Urine Trace (Negative); Color Urine Yellow; Epithelial Cell Urine Auto >30 /lpf (0-5); Glucose Urine UA Negative (Negative); Ketones Urine Negative (Negative); Leukocyte Esterase Urine 2+ (Negative); Nitrite Urine Negative (Negative); Protein Urine Negative (Negative); Specific Gravity Urine 1.019 (1.000-1.030); Urobilinogen Urine Negative (Negative); WBC Urine Automated >30 /hpf (0-5); pH Urine 5.5 (4.5-7.5)
[2021-01-21 20:54] LABS: Albumin Level 3.7 gm/dl (3.4-5.0); BUN Creatinine Ratio 17.2 (10-20); Calcium 8.9 mg/dl (8.5-10.1); Creatinine Clr Calc Pharmacy 80.8 ml/min; Est GFR (African American) 87.4 ml/min; Est GFR (Non-African American) 75.4 ml/min; Potassium 3.5 mmol/L (3.5-5.1)
[2021-01-21 20:57] LABS: Albumin Globulin Ratio 1.1 (0.9-2); Bilirubin,Total 0.2 mg/dl (0.2-1); Globulin 3.5 gm/dl (2.5-4.0); Total Protein 7.2 gm/dl (6.4-8.2)
--- NOTE | 2021-01-21 21:59 | Emergency Department Note ---
History of Present Illness General Chief complaint: Neck Injury/Pain Stated complaint: RIGHT SIDE NUMB, CAN'T SLEEP, MIGRAINES, NECK PAIN Time Seen by Provider: 01/21/21 21:46 History of Present Illness Maximum Pain Intensity: 9 This 40-year-old female patient with significant past medical history of degenerative arthritis of cervical spine, spinal stenosis at C5-C6, C6-C7, who was previously scheduled for C5-C7 anterior cervical discectomy and fusion several weeks ago presents to the emergency department today at the recommendation of Dr. Kang for admission to have her procedure performed tomorrow. The patient states her surgery got canceled several weeks ago due to hospital census and elective procedure. She states over that time, her symptoms and pain have been worsening. She is experiencing some paresthesias and numbness into the right side of the face and some weakness of the right upper extremity. She contacted Dr. Kang's office and has followed closely with him regarding her symptoms, and today when she called due to worsening and progressing pain and paresthesias, she was referred to the emergency department to be admitted and her procedure completed tomorrow. The patient denies any fever. She maintains use of her extremities, but states "blow drying my hair is really hard". She denies any new injury. She rates her pain 9/10 and notes her chronic analgesics are not helping. Home Medications Medication Instructions Recorded Confirmed Type levonorgestrel 20 mcg/24 hours (7 20 mcg INTRAUTERINE CONTINOUS 05/02/18 01/21/21 History yrs) 52 mg intrauterine device (Mirena) albuterol sulfate 90 mcg/actuation 2 puff INHALATION QID PRN #18 gm 12/18/18 01/21/21 Rx aerosol inhaler (Ventolin HFA) cholecalciferol (vitamin D3) 25 25 mcg PO QAM 05/22/19 01/21/21 History mcg (1,000 unit) capsule cyanocobalamin (vitamin B-12) 5,000 mcg SUBLINGUAL QAM 04/08/20 01/21/21 History 5,000 mcg sublingual tablet (Vitamin B-12) escitalopram oxalate 10 mg tablet 10 mg PO QAM #90 tab 07/29/20 01/21/21 Rx diclofenac sodium 1 % topical gel 2 g TOPICAL QID PRN 08/14/20 01/21/21 History levothyroxine 75 mcg tablet 75 mcg PO QAM 90 Days #90 tab 08/17/20 01/21/21 Rx duloxetine 30 mg capsule,delayed 30 mg PO QAM #30 cap 08/25/20 01/21/21 Rx release (Cymbalta) rizatriptan 10 mg disintegrating 10 mg PO Q2H PRN #12 tab 10/06/20 01/21/21 Rx tablet eptinezumab-jjmr 100 mg/mL 300 mg IV .COMPLEX #3 ml 10/21/20 01/21/21 Rx intravenous solution (Vyepti) lubiprostone 24 mcg capsule 24 mcg PO BID #60 cap 10/22/20 01/21/21 Rx (Amitiza) tramadol 50 mg tablet 50 mg PO DAILY PRN #30 tab 12/02/20 01/21/21 Rx bupropion HCl 200 mg tablet,12 hr 200 mg PO BID #60 ea 12/25/20 01/21/21 Rx sustained-release phentermine 37.5 mg capsule 37.5 mg PO QAM #30 cap 01/06/21 01/21/21 Rx hydroxyzine HCl 25 mg tablet 25 mg PO HS PRN #30 tab 01/14/21 01/21/21 Rx Allergies Allergy/AdvReac Type Severity Reaction Status Date / Time bee venom protein (honey bee) Allergy Severe Localized Verified 01/21/21 22:54 swelling latex Allergy Severe Hives, Verified 01/21/21 22:54 rash, blistering orange Allergy Intermediate Itching, Verified 01/21/21 22:54 swelling lasmiditan [From [place]] Allergy Mild Lip Verified 01/21/21 22:54 tingling, "swelling" feeling citalopram AdvReac Intermediate "Thought Verified 01/21/21 22:54 changes" gabapentin AdvReac Intermediate Memory Verified 01/21/21 22:54 Issues, eye twitching Past Med/Surg History Medical History WILLIE (acute kidney injury) WILLIE 04/2020 (in setting of kidney stones) with normalization of creatinine on subsequent 06/2020 labs Anxiety Asthma Exercise induced asthma Chronic back pain Degenerative disc disease Depression Hx of lipoma Hypothyroidism Kidney stones Hx Migraine Osteoarthritis Polyarthritis Post traumatic stress disorder Sensorineural hearing loss (SNHL) of both ears Hearing aids Tachycardia Remote hx, s/p unremarkable cardiac workup HR high 90s/low 100s at PAT visit 12/11/20. Will be seeing PCP 12/18 per preop evaluation appt Temporomandibular joint disorder + pain, + locking (most recent 4+ months ago while eating/able to close on own) Thyroid nodule Hx Tinnitus, bilateral Surgical History H/O bilateral breast reduction surgery History of appendectomy History of back surgery L4-L5 Decompression/Fusion (07/06/17): Grade 2 View, ETT #7.5, MAC #3 L4-L5 Decompression (07/03/17): Grade 1 View, ETT #7.0, MAC #3 History of colonoscopy Colonoscopy (08/20/20): MAC at [facility] History of lithotripsy Left ESWL (04/24/20): LMA #4 at [facility] History of open reduction and internal fixation (ORIF) procedure Left Tib/Fib and ankle surgery History of tonsillectomy Hx of ankle fusion Left ankle x2 Hx of wisdom tooth extraction x2 Status post laparoscopic cholecystectomy Family History Grandfather Family history of diabetes mellitus Uncle Family history of diabetes mellitus Aunt FHx: Hodgkin's disease Father FHx: skin cancer Grandfather (Paternal) FHx: testicular cancer Prostate cancer Grandmother (Maternal) FHx: breast cancer Breast cancer Other No family history of adverse response to anesthesia Denies family history of Ovarian cancer Myocardial infarction Colorectal cancer Social History Smoking Status: Never smoker Second Hand Exposure: No; Hx Alcohol Use: Yes Hx Substance Use: No Preferred Language: Cambodian Communication Ability: Effective Mental Health Nurse Practitioner Required: No Beliefs That Will Affect Care: None marital status: Current Living Situation: Spouse current occupational status: employed current occupation: [employer] Other Information That Helps Us Care for You: No Feels Safe at Home: Yes Assistive Devices: Hearing Aid - Bilateral Review of Systems A total of 10 systems reviewed and were otherwise negative Physical Exam Vital Signs Vital Signs - 24 hr 01/21/21 17:54 01/21/21 21:56 Temperature 36.4 C L Temperature Source Temporal Artery Scan Pulse Rate 100 H Pulse Rate [Left] 101 H Pulse Rhythm Regular Pulse Strength Normal Respiratory Rate 18 20 Respiratory Effort / Characteristics Non-Labored Spontaneous Non-Labored Respiratory Depth Normal Normal Respiratory Pattern Regular Blood Pressure 183/134 H Blood Pressure [Right Arm] 168/134 H Blood Pressure Mean 150 Blood Pressure Mean [Right Arm] 145 Blood Pressure Position Sitting Pulse Oximetry 100 98 Oxygen Delivery Method Room Air Room Air Sepsis Recent Fever Within 48 Hours No Sepsis New/Unexplained Change in Mental Status No Sepsis Action Taken by Nursing No Action Required VITALS: Vitals are noted on the nurse's note and reviewed by myself. Vital signs stable. GENERAL: This is a 40-year-old white female, in no acute distress, nondiaphoretic, well-developed well-nourished. SKIN: The skin was without rashes, erythema, edema, or bruising. There is no tenting of the skin. Capillary refill less than 2 seconds. HEAD: Normocephalic atraumatic. EYES: Conjunctivae without injection, sclerae without icterus. Extraocular m ovements intact. NECK: Supple without nuchal rigidity. No lymphadenopathy. Cervical spine is tender. No JVD. HEART: Regular rate and rhythm without murmurs gallops or rubs. LUNGS: Clear to auscultation bilaterally without wheezes, rales or rhonchi. No retractions or accessory muscle use. MUSCULOSKELETAL: No muscle atrophy, erythema, or edema noted. Full range of motion without joint tenderness in all extremities. No tenderness to palpation. Normal gait. Strength 4/5 RUE, otherwise, strength 5/5 throughout. NEURO: Patient was alert and oriented to person place and time. Decreased sen sation to light and sharp touch on the RUE. Deep tendon reflexes 2+ throughout. No focal neurological deficits. Course Course Due to high volume, high acuity in the emergency department, critical pathways were initiated by nursing staff. IV access obtained, labs drawn. Labs reviewed by myself. The patient was seen and evaluated as above. I contacted Tay Duggan PA-C with [facility] spine for Dr. Kang who is very familiar with the patient. He advised that they did refer her to the emergency department for admission due to her progressing symptoms and they intend to operate in the morning. He advised that he would place admission orders. I discussed the recommendation with the patient at bedside. I discussed the case with my attending. Please see orthopedic spine documentation regarding ongoing management and care of this patient Administered Medications Hydromorphone HCl (Hydromorphone Inj 0.5 Mg/0.5 Ml Syr) 0.5 mg IV Q2H PRN PRN Reason: Pain Stop: 02/04/21 22:44 Last Admin: 01/22/21 02:17 Dose: 0.5 mg Documented by: [id number] Admin: 01/21/21 23:59 Dose: 0.5 mg Documented by: [id number] Lactated Ringer's (Lr) 1,000 mls @ 100 mls/hr IV .Q10H MICHAEL Stop: 02/20/21 22:29 Last Admin: 01/21/21 23:03 Dose: 100 mls/hr Documented by: [id number] Ondansetron HCl (Ondansetron Inj 2 Mg/Ml 2 Ml Vial) 4 mg IV Q6H PRN PRN Reason: Nausea Stop: 02/20/21 22:30 Last Admin: 01/22/21 00:00 Dose: 4 mg Documented by: [id number] Medical Decision Making Differential Diagnosis Cervical strain, fracture, cervical disc disease, lymphadenitis, meningitis, tumor, arterial dissection, thyroiditis, parotitis, mastoiditis, neurologic, cardiovascular, as well as other pathologies. Medical Records Attestation: I reviewed the patient's medical records. Home Medications Current Medication List: was personally reviewed by me Laboratory Data Attestation: I reviewed the patient's lab results. No leukocytosis, anemia, thrombocytopenia. Renal, hepatic function, and electrolytes without significant abnormality. Urinalysis appeared to be contaminated specimen. Greater than 30,000 epithelial cells. 1+ bacteria. Result diagrams: 01/21/21 20:23 01/21/21 20:23 Lab Results 01/21/21 01/21/21 01/21/21 Range/Units 20:23 20:23 20:24 WBC 10.28 (4.8-10.8) K/uL RBC 4.74 (4.2-5.4) M/uL Hgb 14.1 (12.0-16.0) g/dL Hct 42.1 (37-47) % MCV 88.8 (80-100) fL MCH 29.7 (25-34) pg MCHC 33.5 (32-36) g/dL RDW Std Deviation 42.7 (36.4-46.3) fL RDW Coeff of Mulu 13.0 (11.5-14.5) % Plt Count 265 (130-400) K/uL MPV 9.6 (7.4-10.4) fL Immature Gran % (Auto) 0.1 % Neut % (Auto) 65.4 % Lymph % (Auto) 29.8 % [place] % (Auto) 3.2 % Eos % (Auto) 1.3 % Baso % (Auto) 0.2 % Neut # (Auto) 6.73 H (1.4-6.5) K/uL Lymph # (Auto) 3.06 (1.2-3.4) K/uL [place] # (Auto) 0.33 (0.11-0.59) K/uL Eos # (Auto) 0.13 (0-0.5) K/uL Baso # (Auto) 0.02 (0-0.2) K/uL Immature Gran # (Auto) 0.01 (0.00-0.02) K/uL Sodium 138 (136-145) mmol/L Potassium 3.5 (3.5-5.1) mmol/L Chloride 104 (98-107) mmol/L Carbon Dioxide 28 (21-32) mmol/L Anion Gap 6.0 (3-11) BUN 16 (7-18) mg/dl Creatinine 0.95 (0.6-1.2) mg/dl Est Cr Clr Drug Dosing 80.8 ml/min Est GFR ( Amer) 87.4 ml/min Est GFR (Non-Af Amer) 75.4 ml/min BUN/Creatinine Ratio 17.2 (10-20) Glucose 146 H (70-99) mg/dl Calcium 8.9 (8.5-10.1) mg/dl Total Bilirubin 0.2 (0.2-1) mg/dl AST 21 (15-37) U/L ALT 36 (12-78) U/L Alkaline Phosphatase 72 (45-117) U/L Total Protein 7.2 (6.4-8.2) gm/dl Albumin 3.7 (3.4-5.0) gm/dl Globulin 3.5 (2.5-4.0) gm/dl Albumin/Globulin Ratio 1.1 (0.9-2) Urine Color Yellow Urine Appearance Cloudy A (Clear) Urine pH 5.5 (4.5-7.5) Ur Specific [place] 1.019 (1.000-1.030) Urine Protein Negative (Negative) Urine Glucose (UA) Negative (Negative) Urine Ketones Negative (Negative) Urine Blood Trace H (Negative) Urine Nitrite Negative (Negative) Urine Bilirubin Negative (Negative) Urine Urobilinogen Negative (Negative) Ur Leukocyte Esterase 2+ H (Negative) Urine WBC (Auto) >30 H (0-5) /hpf Urine RBC (Auto) 5-10 H (0-4) /hpf U Hyaline Cast (Auto) 1-5 (0-5) /lpf U Epithel Cells (Auto) >30 H (0-5) /lpf Urine Bacteria (Auto) 1+ H (Negative) Urine Yeast Budding A (None Prsent) Blood Pressure Blood Pressure Findings: Elevated blood pressure MDM Narrative This 40-year-old female patient presents to the emergency department today for admission due to worsening symptoms in the setting of chronic spinal stenosis. The patient is closely followed by Dr. Kang and his team with [facility]. She has been experiencing progressive paresthesias, weakness, and pain in the upper extremities, right greater than left. The patient will be admitted to Dr. Kang's service and plan to go to surgery in the morning. Please see the orthospine dictation regarding ongoing management and care of this patient. The chart was completed utilizing [employer] Speech voice recognition software. Grammatical errors, random word insertions, pronoun errors, and incomplete sentences are an occasional consequence of this system due to software limitations, ambient noise, and hardware issues. Any formal questions or concerns about the content, text, or information contained within the body of th is dictation should be directly addressed to the provider for clarification. Impression & Plan Cervical spinal stenosis, Cervical radiculopathy Discharge Plan Visit Data Chief Complaint: Neck Injury/Pain Stated Complaint: RIGHT SIDE NUMB, CAN'T SLEEP, MIGRAINES, NECK PAIN ED Provider: Caryn Bess ED Midlevel Provider: Piper Randall Discharge Problem: Cervical spinal stenosis, Cervical radiculopathy Patient Disposition: Admitted As Inpatient Discharge Instructions Interventions: ED Discharge Assessment Last Done: 01/22/21 04:25
[2021-01-21] MEDS: LACTATED RINGER'S 1,000 ML IV SCH (23:03)
[2021-01-21] MEDS: HYDROmorphone INJ 0.5 MG/0.5 ML SYR IV PRN (23:59)
[2021-01-22] MEDS: HYDROmorphone INJ 0.5 MG/0.5 ML SYR IV PRN ×2 (02:17→09:17)
--- NOTE | 2021-01-22 08:17 | History & Physical Report ---
Date of Service January 22, 2021 Assessment & Plan (1) Cervical radiculopathy: Plan: Assessment cervical spinal stenosis with radiculopathy and progressive neurologic deficit. Plan patient does have an MRI dated 12/05/2019 one of the cervical spine that demonstrates evidence of bilateral neuroforaminal disease spinal stenosis C5-C6 C6-C7. She continues to decline with progressive weakness and sensory deficit. Subsequently recommending urgent anterior cervical disc ectomy and fusion C5-C6 C6-C7. Risk benefits pros cons and alternatives were outlined in detail. Risk include but not limited to anesthesia blindness stroke paralysis nerve damage blood loss requiring transfusion infection requiring reoperation dysphonia dysphagia. Pins will be marked improvement of her radiculopathy and in time improvement of her neuro deficit. Admission and Anticipated Discharge Date Admission Date: January 21, 2021 History of Present Illness Chief Complaint: Worsening arm pain and weakness Primary Care Provider: Karely Grullon MD This is a 40-year-old female [id number] presents with known cervical radiculopathy. She states this has gotten markedly worse over the past several weeks. She describes pain radiating from her right cervical spine radiating into the right interscapular region down her arm and into the thumb index ring fingers. Is incapacitating in nature. Any activity exacerbates her pain. Awakens her from sleep. She does note some numbness and tingling affecting the left upper extremity but to a lesser degree. She describes coordination deficits involving the right hand. Allergies Allergy/AdvReac Type Severity Reaction Status Date / Time bee venom protein (honey bee) Allergy Severe Localized Verified 01/21/21 22:54 swelling latex Allergy Severe Hives, Verified 01/21/21 22:54 rash, blistering orange Allergy Intermediate Itching, Verified 01/21/21 22:54 swelling lasmiditan [From [place]] Allergy Mild Lip Verified 01/21/21 22:54 tingling, "swelling" feeling citalopram AdvReac Intermediate "Thought Verified 01/21/21 22:54 changes" gabapentin AdvReac Intermediate Memory Verified 01/21/21 22:54 Issues, eye twitching Home Medications Medication Instructions Recorded Confirmed Type levonorgestrel 20 mcg/24 hours (7 20 mcg INTRAUTERINE CONTINOUS 05/02/18 01/21/21 History yrs) 52 mg intrauterine device (Mirena) albuterol sulfate 90 mcg/actuation 2 puff INHALATION QID PRN #18 gm 12/18/18 01/21/21 Rx aerosol inhaler (Ventolin HFA) cholecalciferol (vitamin D3) 25 25 mcg PO QAM 05/22/19 01/21/21 History mcg (1,000 unit) capsule cyanocobalamin (vitamin B-12) 5,000 mcg SUBLINGUAL QAM 04/08/20 01/21/21 History 5,000 mcg sublingual tablet (Vitamin B-12) escitalopram oxalate 10 mg tablet 10 mg PO QAM #90 tab 07/29/20 01/21/21 Rx diclofenac sodium 1 % topical gel 2 g TOPICAL QID PRN 08/14/20 01/21/21 History levothyroxine 75 mcg tablet 75 mcg PO QAM 90 Days #90 tab 08/17/20 01/21/21 Rx duloxetine 30 mg capsule,delayed 30 mg PO QAM #30 cap 08/25/20 01/21/21 Rx release (Cymbalta) rizatriptan 10 mg disintegrating 10 mg PO Q2H PRN #12 tab 10/06/20 01/21/21 Rx tablet eptinezumab-jjmr 100 mg/mL 300 mg IV .COMPLEX #3 ml 10/21/20 01/21/21 Rx intravenous solution (Vyepti) lubiprostone 24 mcg capsule 24 mcg PO BID #60 cap 10/22/20 01/21/21 Rx (Amitiza) tramadol 50 mg tablet 50 mg PO DAILY PRN #30 tab 12/02/20 01/21/21 Rx bupropion HCl 200 mg tablet,12 hr 200 mg PO BID #60 ea 12/25/20 01/21/21 Rx sustained-release phentermine 37.5 mg capsule 37.5 mg PO QAM #30 cap 01/06/21 01/21/21 Rx hydroxyzine HCl 25 mg tablet 25 mg PO HS PRN #30 tab 01/14/21 01/21/21 Rx Past Med/Surg History Medical History WILLIE (acute kidney injury) WILLIE 04/2020 (in setting of kidney stones) with normalization of creatinine on subsequent 06/2020 labs Anxiety Asthma Exercise induced asthma Chronic back pain Degenerative disc disease Depression Hx of lipoma Hypothyroidism Kidney stones Hx Migraine Osteoarthritis Polyarthritis Post traumatic stress disorder Sensorineural hearing loss (SNHL) of both ears Hearing aids Tachycardia Remote hx, s/p unremarkable cardiac workup HR high 90s/low 100s at PAT visit 12/11/20. Will be seeing PCP 12/18 per preop evaluation appt Temporomandibular joint disorder + pain, + locking (most recent 4+ months ago while eating/able to close on own) Thyroid nodule Hx Tinnitus, bilateral Surgical History H/O bilateral breast reduction surgery History of appendectomy History of back surgery L4-L5 Decompression/Fusion (07/06/17): Grade 2 View, ETT #7.5, MAC #3 L4-L5 Decompression (07/03/17): Grade 1 View, ETT #7.0, MAC #3 History of colonoscopy Colonoscopy (08/20/20): MAC at [facility] History of lithotripsy Left ESWL (04/24/20): LMA #4 at [facility] [place] History of open reduction and internal fixation (ORIF) procedure Left Tib/Fib and ankle surgery History of tonsillectomy Hx of ankle fusion Left ankle x2 Hx of wisdom tooth extraction x2 Status post laparoscopic cholecystectomy Family History Grandfather Family history of diabetes mellitus Uncle Family history of diabetes mellitus Aunt FHx: Hodgkin's disease Father FHx: skin cancer Grandfather (Paternal) FHx: testicular cancer Prostate cancer Grandmother (Maternal) FHx: breast cancer Breast cancer Other No family history of adverse response to anesthesia Denies family history of Ovarian cancer Myocardial infarction Colorectal cancer Social History Smoking Status: Never smoker Second Hand Exposure: No; Hx Alcohol Use: Yes Hx Substance Use: No Preferred Language: Pashto Communication Ability: Effective Content Creation Manager Required: No Beliefs That Will Affect Care: None marital status: Current Living Situation: Spouse current occupational status: employed current occupation: [employer] Other Information That Helps Us Care for You: No Feels Safe at Home: Yes Assistive Devices: Hearing Aid - Bilateral Physical Exam Physical Exam: On exam patient is in obvious distress. She does exhibit marked decrease in sensation to cold and light touch to the right upper extremity compared to left. She is a markedly positive Spurling's to the right no evidence of gross Lhermitte's phenomenon. She exhibits a bilateral Nasim sign. Deep tendon reflexes are diminished at the biceps bilaterally. She exhibits 3+/5 right finger intrinsics grasp biceps. On the left she is a 5 or 5. Her deltoids appear to be symmetric 5/5 bilaterally. Triceps are 4/5 on the right 5 or 5 on the left. Results & Data ([facility]) Vital Signs (Past 12 Hours) Vital Signs Temp Pulse Resp BP Pulse Ox 01/22/21 06:12 36.5 C 89 14 150/105 H 100 01/22/21 03:00 88 18 99 01/22/21 01:00 100 H 20 147/106 H 98 01/21/21 23:00 88 20 148/124 H 98 01/21/21 21:56 101 H 20 168/134 H 98
[2021-01-22] MEDS: LACTATED RINGER'S 1,000 ML IV SCH ×2 (09:14→19:32)
[2021-01-22] MEDS: ONDANSETRON INJ 2 MG/ML 2 ML VIAL IV PRN ×2 (09:17)
[2021-01-22] MEDS ORDERED: HYDROmorphone INJ 2 MG/ML SYR/VIAL ONE (13:09)
[2021-01-22] MEDS ORDERED: MIDAZOLAM HCL 1 MG/ML 2ML VIAL ONE (13:09)
[2021-01-22] MEDS ORDERED: ATROPINE SULFATE 0.1 MG/ML 10ML SYR IV PRN (13:21)
[2021-01-22] MEDS ORDERED: ONDANSETRON INJ 2 MG/ML 2 ML VIAL IV PRN ×2 (13:21→18:13)
[2021-01-22] MEDS ORDERED: ePHEDrine sulfate 50 MG/ML AMP IV PRN (13:21)
--- NOTE | 2021-01-22 13:26 | Anesthesiology Consultation ---
Date of Service January 22, 2021 Assessment & Plan (1) Encounter for pre-operative examination: Chart Review Chart Review: Acceptable Risk for Surgery and Patient NOT seen in Pre Admission Testing covid neg 01/21/21 Consults Requested none History Surgery Operation Date: 01/22/21 08:20 Proposed Procedures p C5-C6, C6-C7 Anterior Cervical Discectomy Fusion - Alden Kang DO Height/Weight Height: 5 ft 2 in Weight: 85.8 kg Allergies Allergy/AdvReac Type Severity Reaction Status Date / Time bee venom protein (honey bee) Allergy Severe Localized Verified 01/22/21 13:23 swelling latex Allergy Severe Hives, Verified 01/22/21 13:23 rash, blistering orange Allergy Intermediate Itching, Verified 01/22/21 13:23 swelling lasmiditan [From [place]] Allergy Mild Lip Verified 01/22/21 13:23 tingling, "swelling" feeling citalopram AdvReac Intermediate "Thought Verified 01/22/21 13:23 changes" gabapentin AdvReac Intermediate Memory Verified 01/22/21 13:23 Issues, eye twitching Medications Home Medications Medication Instructions Recorded Confirmed Last Taken levonorgestrel 20 mcg/24 hours (7 20 mcg INTRAUTERINE CONTINOUS 05/02/1801/2104/23/20 yrs) 52 mg intrauterine device (Mirena) albuterol sulfate 90 mcg/actuation 2 puff INHALATION QID PRN #18 gm 12/18/18 01/21/21 04/23/20 aerosol inhaler (Ventolin HFA) cholecalciferol (vitamin D3) 25 25 mcg PO QAM 05/22/19 01/21/21 01/21/21 mcg (1,000 unit) capsule cyanocobalamin (vitamin B-12) 5,000 mcg SUBLINGUAL QAM 04/08/20 01/21/21 01/21/21 5,000 mcg sublingual tablet (Vitamin B-12) escitalopram oxalate 10 mg tablet 10 mg PO QAM #90 tab 07/29/20 01/21/21 01/21/21 diclofenac sodium 1 % topical gel 2 g TOPICAL QID PRN 08/14/20 01/21/21 Unknown levothyroxine 75 mcg tablet 75 mcg PO QAM 90 Days #90 tab 08/17/20 01/21/21 01/21/21 duloxetine 30 mg capsule,delayed 30 mg PO QAM #30 cap 08/25/20 01/21/21 01/21/21 release (Cymbalta) rizatriptan 10 mg disintegrating 10 mg PO Q2H PRN #12 tab 10/06/20 01/21/21 Unknown tablet eptinezumab-jjmr 100 mg/mL 300 mg IV .COMPLEX #3 ml 10/21/20 01/21/21 01/21/21 intravenous solution (Vyepti) lubiprostone 24 mcg capsule 24 mcg PO BID #60 cap 10/22/20 01/21/21 01/21/21 08:00 (Amitiza) tramadol 50 mg tablet 50 mg PO DAILY PRN #30 tab 12/02/20 01/21/21 Unknown bupropion HCl 200 mg tablet,12 hr 200 mg PO BID #60 ea 12/25/20 01/21/21 01/21/21 08:00 sustained-release phentermine 37.5 mg capsule 37.5 mg PO QAM #30 cap 01/06/21 01/21/21 01/21/21 hydroxyzine HCl 25 mg tablet 25 mg PO HS PRN #30 tab 01/14/21 01/21/21 Unknown Active Medications Generic Name Dose Route Start Last Admin Trade Name Henriq PRN Reason Stop Dose Admin Hydromorphone HCl 0.5 mg 01/21/21 22:31 01/22/21 09:17 Hydromorphone Inj 0.5 Mg/0.5 Ml Syr IV 02/04/21 22:44 0.5 mg Q2H PRN Administration Pain Lactated Ringer's 1,000 mls @ 100 mls/hr 01/21/21 22:30 01/22/21 09:14 Lr IV 02/20/21 22:29 100 mls/hr .Q10H MICHAEL Administration Ondansetron HCl 4 mg 01/21/21 22:31 01/22/21 09:17 Ondansetron Inj 2 Mg/Ml 2 Ml Vial IV 02/20/21 22:30 4 mg Q6H PRN Administration Nausea NPO Date Last Intake of Fluids: 01/20/21 Time Last Intake of Fluids: 08:00 Date Last Intake of Solids: 01/20/21 Time Last Intake of Solids: 08:00 Past Medical History Medical History WILLIE (acute kidney injury) WILLIE 04/2020 (in setting of kidney stones) with normalization of creatinine on subsequent 06/2020 labs Anxiety Asthma Exercise induced asthma Chronic back pain Degenerative disc disease Depression Hx of lipoma Hypothyroidism Kidney stones Hx Migraine Osteoarthritis Polyarthritis Post traumatic stress disorder Sensorineural hearing loss (SNHL) of both ears Hearing aids Tachycardia Remote hx, s/p unremarkable cardiac workup HR high 90s/low 100s at PAT visit 12/11/20. Will be seeing PCP 12/18 per preop evaluation appt Temporomandibular joint disorder + pain, + locking (most recent 4+ months ago while eating/able to close on own) Thyroid nodule Hx Tinnitus, bilateral Past Family History Family History Grandfather Family history of diabetes mellitus Uncle Family history of diabetes mellitus Aunt FHx: Hodgkin's disease Father FHx: skin cancer Grandfather (Paternal) FHx: testicular cancer Prostate cancer Grandmother (Maternal) FHx: breast cancer Breast cancer Other No family history of adverse response to anesthesia Denies family history of Ovarian cancer Myocardial infarction Colorectal cancer Past Surgical History Surgical History H/O bilateral breast reduction surgery History of appendectomy History of back surgery L4-L5 Decompression/Fusion (07/06/17): Grade 2 View, ETT #7.5, MAC #3 L4-L5 Decompression (07/03/17): Grade 1 View, ETT #7.0, MAC #3 History of colonoscopy Colonoscopy (08/20/20): MAC at [facility] History of lithotripsy Left ESWL (04/24/20): LMA #4 at [facility] [place] History of open reduction and internal fixation (ORIF) procedure Left Tib/Fib and ankle surgery History of tonsillectomy Hx of ankle fusion Left ankle x2 Hx of wisdom tooth extraction x2 Status post laparoscopic cholecystectomy Social History Smoking Status: Never smoker Hx Alcohol Use: Yes alcohol intake frequency: holidays/special occasions only Hx Substance Use: No substance use type: does not use Physical Exam Vital Signs Last Vital Signs Temp 36.6 C 01/22/21 12:18 Pulse 88 01/22/21 12:18 Resp 18 01/22/21 12:18 BP 146/98 H 01/22/21 12:18 Pulse Ox 96 01/22/21 12:18 Testing Laboratory Results 01/21/21 20:23 01/21/21 20:23 Urine Color Yellow 01/21/21 20:24 Urine Appearance Cloudy (Clear) A 01/21/21 20:24 Urine pH 5.5 (4.5-7.5) 01/21/21 20:24 Ur Specific [place] 1.019 (1.000-1.030) 01/21/21 20:24 Urine Protein Negative (Negative) 01/21/21 20:24 Urine Glucose (UA) Negative (Negative) 01/21/21 20:24 Urine Ketones Negative (Negative) 01/21/21 20:24 Urine Nitrite Negative (Negative) 01/21/21 20:24 Ur Leukocyte Esterase 2+ (Negative) H 01/21/21 20:24 Urine WBC (Auto) >30 /hpf (0-5) H 01/21/21 20:24 Urine RBC (Auto) 5-10 /hpf (0-4) H 01/21/21 20:24 U Hyaline Cast (Auto) 1-5 /lpf (0-5) 01/21/21 20:24 U Epithel Cells (Auto) >30 /lpf (0-5) H 01/21/21 20:24 Urine Bacteria (Auto) 1+ (Negative) H 01/21/21 20:24 01/21/21 20:24 Urine Culture - Preliminary Urine,Clean Catch Pin-point growth present, reincubating. Electrocardiogram Date: 12/11/20 DICTATED BY:Noman Gonsales MD Test Reason : Blood Pressure : / mmHG Vent. Rate : 101 BPM Atrial Rate : 101 BPM P-R Int : 148 ms QRS Dur : 076 ms QT Int : 358 ms P-R-T Axes : 065 065 052 degrees QTc Int : 464 ms Sinus tachycardia Right atrial enlargement Borderline ECG When compared with ECG of 07-JUL-2017 14:23, No significant change was found Confirmed by Noman Gonsales ([id number]) on 12/12/2020 6:29:06 AM Chest X-Ray Date: 12/11/20 TWO VIEW CHEST CLINICAL HISTORY: Preoperative examination. Cervical spinal stenosis. Reported history of asthma. FINDINGS: PA and lateral chest radiographs are compared to study dated 12/01/2015 and correlated with chest CT dated 07/08/2017. The cardiomediastinal silhouette is unremarkable. The lungs and pleural spaces are clear. There is no pneumothorax. The bony thorax appears intact. Cholecystectomy clips are noted in the right upper quadrant. IMPRESSION: No active disease in the chest.
[2021-01-22] MEDS ORDERED: ceFAZolin 2000MG 2,000 MG/15 ML SYR IV ONE (14:07)
[2021-01-22] MEDS ORDERED: ceFAZolin 2,000 MG/15 ML IV PUSH IV ONE (14:09)
[2021-01-22] MEDS ORDERED: PROPOFOL IV EMULSION 10 MG/ML 20 ML VIAL IV ONE (15:11)
[2021-01-22] MEDS ORDERED: ONDANSETRON INJ 2 MG/ML 2 ML VIAL ONE (15:11)
[2021-01-22] MEDS ORDERED: ROCURONIUM BROMIDE 10 MG/ML 5 ML VIAL IV ONE (15:11)
[2021-01-22] MEDS ORDERED: LABETALOL HCL IV 5 MG/ML 20ML IV ONE ×2 (15:11→17:21)
[2021-01-22] MEDS ORDERED: DEXAMETHASONE SOD INJ 4 MG/ML VIAL ONE (15:11)
[2021-01-22] MEDS ORDERED: LIDOCAINE 2% 2 ML VIAL/AMP(20MG/ML) INFIL ONE (15:11)
[2021-01-22] MEDS ORDERED: FLOSEAL HEMOSTATIC MATRIX 10ML TOP ONE (15:24)
[2021-01-22] MEDS ORDERED: SUGAMMADEX SODIUM 200 MG/2 ML VIAL IV ONE (16:07)
--- NOTE | 2021-01-22 16:20 | Operative Report ---
Post Operative Report Pre & Post Diagnosis Operation Date: 01/22/21 08:20 Pre-Op Diagnosis: CERVICAL RADICULOPATHY Post-Op Diagnosis: CERVICAL RADICULOPATHY I identified the patient and participated in the time-out.: Yes Procedure Operation Date: 01/22/21 08:20 Actual Procedures #1 anterior cervical discectomy with bilateral foraminotomies C5-C6 C6-C7. #2 anterior cervical arthrodesis C5-C6 C6-C7. #3 placement of 8 mm spiral cage filled with I factor C5-C6 C6-C7. #4 application of franks plate and screws from C3 5 to C7. Surgeon Alden Kang, Qa Consultant Tay Duggan Estimated Blood Loss 25 Findings Consistent with Post-Op Diagnosis Specimens None Indications This is a 40-year-old female presents with marked decline in status with worsening cervical radiculopathy and progressive neuro deficit and is here for urgent decompression fusion. Description of Procedure Patient was met with identified informed consent obtained. Patient was then taken to the operative suite underwent ablation placed in spine position with the head on the [place] sewer. All bony prominences well-padded eyes inspected to ensure no external pressure placed upon them. This point the anterior cervical spine was prepped and draped in a sterile fashion. The assistance of fluoroscopy identified the C6 vertebral body and a transverse incision was placed along the right anterior aspect of the cervical spinal lines region. Blunt dissection with the assistance of bipolar electrocautery was performed down to and exposing the anterior cervical spine from C5 to see 7. Self-retaining retractors placed. Then performed a complete discectomy of C5-C6 out to the uncovertebral joints bilaterally. [place] distraction pins were utilized to assist in visualization. Removed all posterior annular fibers longitudinal ligament bilateral foraminotomies performed. Endplates then burred to subcortical bleeding bone and an 8 mm spiral cage filled with I factor tapped in position. Distracting apparatus was removed and I proceeded to C6-C7. Again complete discectomy performed out to the uncovertebral joints bilaterally. [place] distracting pins again utilized. Removed all posterior annular fibers and longitudinal ligament performed bilateral foraminotomies. Endplates burred to subcortically bone and a 8 mm spiral cage filled with I factor tapped in position. Distracting apparatus was removed all anterior osteophytes burred to a smooth cortical surface and a 5 complete screws applied with the assistance of fluoroscopy. The incision was then copiously irrigated explored to ensure no damage to surrounding structures or remaining bleeding. 10 round MARK drain inserted. Incision was then closed with 2 Vicryl in a fashion of 4 Monocryl for final skin closure. Sterile dressings placed. Patient will continue PACU stable condition. Please note spinal cord monitoring was utilized at the procedure no changes noted. Lastly Tay Duggan was present at the procedure involved the patient positioning complex portions of the surgery. I attest to the content of the Intraoperative Record and any orders documented therein. Any exceptions are noted below.
--- NOTE | 2021-01-22 16:36 | Fluoroscopy Report ---
FL cervical 2-3V CLINICAL HISTORY: ACDF C5-7 TECHNIQUE: 3 views were obtained with the C-arm in the OR with the above procedure. Total fluoroscopy time was 14.1 seconds. Total skin dose was 2.76 mGy. Comparison: None available at the time of this dictation. FINDINGS/IMPRESSION: Intraoperative images of ACDF placement were obtained. Please correlate with intraoperative fluoroscopy and operative report. ACT 112: Negative or not required by law. Electronically signed by: Adolfo Mays M.D. 01/22/2021 4:34 PM
[2021-01-22] MEDS: fentaNYL citrate 100 MCG/2 ML VIAL IV PRN ×4 (16:45→17:00)
[2021-01-22] MEDS: HYDROmorphone INJ 1 MG/ML SYRINGE IV PRN ×2 (17:05→17:10)
[2021-01-22] MEDS ORDERED: diphenhydrAMINE 50 MG/ML VIAL ONE (17:09)
[2021-01-22] MEDS ORDERED: diphenhydrAMINE 50 MG/ML VIAL IV STA (17:10)
[2021-01-22] MEDS ORDERED: LABETALOL HCL IV 5 MG/ML 20ML IV STA (17:24)
--- NOTE | 2021-01-22 17:45 | Anesthesiology Progress Note ---
Date of Service January 22, 2021 Anesthesia Post Procedure Vital Signs Vital Signs: Temp Pulse Pulse Pulse Resp BP BP 01/22/21 17:35 36.3 C L 97 H 14 153/103 H 01/22/21 17:25 91 H 12 168/107 H 01/22/21 17:15 90 18 162/110 H 01/22/21 17:05 88 17 162/109 H 01/22/21 16:55 85 16 131/100 01/22/21 16:45 75 14 146/100 H 01/22/21 16:35 82 17 157/101 H 01/22/21 16:29 36.1 C L 81 15 158/102 H 01/22/21 13:26 36.8 C 98 H 18 149/111 H 01/22/21 12:18 36.6 C 88 18 146/98 H 01/22/21 06:12 36.5 C 89 14 150/105 H 01/22/21 03:00 88 18 01/22/21 01:00 100 H 20 147/106 H 01/21/21 23:00 88 20 148/124 H 01/21/21 21:56 101 H 20 168/134 H 01/21/21 17:54 36.4 C L 100 H 18 183/134 H Pulse Ox 01/22/21 17:35 97 01/22/21 17:25 99 01/22/21 17:15 93 01/22/21 17:05 90 01/22/21 16:55 96 01/22/21 16:45 95 01/22/21 16:35 98 01/22/21 16:29 100 01/22/21 13:26 97 01/22/21 12:18 96 01/22/21 06:12 100 01/22/21 03:00 99 01/22/21 01:00 98 01/21/21 23:00 98 01/21/21 21:56 98 01/21/21 17:54 100 Pain Intensity Anterior Neck: Pain Intensity: 3 Transfer of Care Handoff Completed per policy Notes Mental Status: alert / awake / arousable and participated in evaluation Patient Amnestic to Procedure: Yes Nausea / Vomiting: adequately controlled Pain: adequately controlled Airway Patency, RR, SpO2: stable & adequate BP & HR: stable & adequate Hydration State: stable & adequate Anesthetic Complications: no major complications apparent
[2021-01-22] MEDS ORDERED: ALUMINUM/MAGNESIUM SUSP 30 ML UDC PO PRN (18:13)
[2021-01-22] MEDS ORDERED: LORazepam 0.5 MG TAB PO PRN (18:13)
[2021-01-22] MEDS ORDERED: bisacodyL 10 MG SUPP PR PRN (18:13)
[2021-01-22] MEDS ORDERED: HYDROmorphone INJ 0.5 MG/0.5 ML SYR IV PRN (18:13)
[2021-01-22] MEDS ORDERED: diphenhydrAMINE Capsule 25 MG CAP PO PRN (18:13)
[2021-01-22] MEDS ORDERED: LACTATED RINGER'S 1,000 ML IV SCH (18:13)
[2021-01-22] MEDS ORDERED: NALOXONE HCL 0.4 MG/1 ML VIAL/CARP IV PRN (18:13)
[2021-01-22] MEDS ORDERED: hydrOXYzine HCl 25 MG TAB PO PRN ×2 (18:13)
[2021-01-22] MEDS ORDERED: PROMETHAZINE HCL 12.5 MG in SODIUM CHLORIDE 0.9% 50 ML IV PRN (18:13)
[2021-01-22] MEDS ORDERED: SOD PHOSPHATE/SOD BIPHOSPHATE ENEMA 132 ML BTL PR PRN (18:13)
[2021-01-22] MEDS ORDERED: DO NOT ADMINISTER FLU VACCINE PRN (18:13)
[2021-01-22] MEDS ORDERED: ACETAMINOPHEN 1,000 MG/100 ML VIAL IV PRN (18:13)
[2021-01-22] MEDS ORDERED: HYDROmorphone INJ 1 MG/ML SYRINGE IV PRN (18:13)
[2021-01-22] MEDS ORDERED: ONDANSETRON 4 MG OD TAB PO PRN (18:13)
[2021-01-22] MEDS ORDERED: METOCLOPRAMIDE HCL INJ 5 MG/ML 2 ML VIAL IV PRN (18:13)
[2021-01-22] MEDS ORDERED: [UNRECOGNIZED DRUG - OTHER] IU SCH (18:13)
[2021-01-22] MEDS ORDERED: LEVONORGESTREL IU SCH (18:13)
[2021-01-22] MEDS ORDERED: traMADol HCL 50 MG TABLET PO PRN ×2 (18:13)
[2021-01-22] MEDS ORDERED: ACETAMINOPHEN 500 MG TAB PO PRN (18:13)
[2021-01-22] MEDS ORDERED: FAMOTIDINE 20 MG TAB PO PRN (18:13)
[2021-01-22] MEDS ORDERED: DO NOT ADMINISTER PNEUMOCOCCAL VACCINE PRN (18:13)
[2021-01-22] MEDS ORDERED: LORazepam 0.5 MG/1 ML VIAL IV PRN (18:13)
[2021-01-22] MEDS ORDERED: MAGNESIUM HYDROXIDE SUSP 30 ML UDC PO PRN (18:13)
[2021-01-22] MEDS ORDERED: RACEPINEPHRINE 2.25% NEBU SOLN 0.5 ML VIAL INH PRN (18:13)
[2021-01-22] MEDS ORDERED: ALBUTEROL HFA 8 GM INHALER INH PRN (18:13)
[2021-01-22] MEDS ORDERED: dexAMETHasone 8 MG in SYRINGE 0 ML IV PRN (18:13)
[2021-01-22] MEDS ORDERED: RIZATRIPTAN BENZOATE MLT 10 MG TAB PO PRN (18:49)
[2021-01-22] MEDS ORDERED: DOCUSATE SODIUM/SENNA 50/8.6MG TAB PO SCH (21:00)
[2021-01-22] MEDS: LUBIPROSTONE 8 MCG CAP PO SCH (21:37)
[2021-01-22] MEDS: buPROPion SR 100 MG TABCR PO SCH (21:39)
[2021-01-22] MEDS: ceFAZolin 2000MG 2,000 MG/15 ML SYR IV SCH (21:41)
[2021-01-22] MEDS: dexAMETHasone 6 MG in SYRINGE 0 ML IV SCH (21:41)
[2021-01-22] MEDS: oxyCODONE HCL IR 5 MG TAB (IMMEDIATE RELEASE) PO PRN (22:46)
[2021-01-23] MEDS: oxyCODONE HCL IR 5 MG TAB (IMMEDIATE RELEASE) PO PRN ×2 (05:02→10:01)
[2021-01-23] MEDS: dexAMETHasone 6 MG in SYRINGE 0 ML IV SCH (05:52)
[2021-01-23] MEDS: ceFAZolin 2000MG 2,000 MG/15 ML SYR IV SCH (05:52)
[2021-01-23] MEDS ORDERED: POLYETHYLENE (MIRALAX) 17 GM PACK PO SCH (06:00)
[2021-01-23] MEDS ORDERED: LEVOTHYROXINE SODIUM 75 MCG TABLET PO SCH (06:30)
--- NOTE | 2021-01-23 06:47 | Orthopedic Progress Note ---
Date of Service January 23, 2021 Assessment & Plan (1) Cervical radiculopathy: Plan: Patient is doing well postop day #1. Her pain is well controlled she is able to stand and walk and she would like to be discharged home. I have reviewed dressing changes, showering, driving, and lifting restrictions. We will discharge her to home at this point and see her in the office approximately 2 weeks. Admission and Anticipated Discharge Date Admission Date: January 21, 2021 Subjective Patient is seen bedside in room 387. She is resting comfortably. Her collar is in place. She reports that her arm symptoms have significantly improved already. She is not getting the cramping in her hands while she still has numbness she does not have the pain that she had. She denies any other numbness, tingling, or paresthesias. Physical Exam Physical Exam: On exam she is alert and oriented. Her upper extremity motor exam reveals no focal atrophy. Her sensation is intact to light touch. Her dressing is clean dry and intact. Her abdomen soft nontender her calves are supple nontender. Her MARK drain is in place and his placed out 10 cc in total Results & Data ([facility]) Vital Signs (Past 12 Hours) Vital Signs Temp Pulse Resp BP Pulse Ox 01/23/21 05:08 36.7 C 94 H 18 142/96 H 95 01/23/21 03:12 36.4 C L 92 H 16 149/96 H 95 01/23/21 02:35 90 16 95 01/23/21 02:34 87 18 93 01/23/21 01:08 36.7 C 91 H 18 152/98 H 93 01/23/21 00:08 36.7 C 95 H 18 146/96 H 93 01/22/21 22:55 36.6 C 97 H 14 151/103 H 99 01/22/21 21:25 36.5 C 95 H 18 147/99 H 99 01/22/21 20:00 36.4 C L 90 14 145/94 H 99 01/22/21 19:20 91 H 18 98 01/22/21 19:14 36.7 C 89 17 142/91 H 98
[2021-01-23] MEDS: LUBIPROSTONE 8 MCG CAP PO SCH (07:14)
[2021-01-23] MEDS: buPROPion SR 100 MG TABCR PO SCH (07:14)
[2021-01-23] MEDS ORDERED: hydrALAZINE HCL 20 MG/ML VIAL IV STA (08:02)
[2021-01-23] MEDS ORDERED: CYANOCOBALAMIN (VITAMIN B-12) 2,500 MCG TAB.SUBL SL SCH (09:00)
[2021-01-23] MEDS ORDERED: CHOLECALCIFEROL 1,000 UNITS 25 MCG TAB PO SCH (09:00)
[2021-01-23] MEDS ORDERED: DULoxetine HCL 30 MG CAP PO SCH (09:00)
[2021-01-23] MEDS ORDERED: lisinopril 10 MG TAB PO ONE (10:12)
[2021-01-23 10:18] LABS: Hemoglobin 14.4 g/dL (12.0-16.0); Immature Granulocytes # (auto) 0.04 K/uL (0.00-0.02); Immature Granulocytes % (auto) 0.2 %; Lymphocytes # (auto) 0.57 K/uL (1.2-3.4); Lymphocytes % (auto) 3.1 %; Mean Corpuscular Hemoglobin 29.6 pg (25-34); Mean Corpuscular Hgb Conc 33.5 g/dL (32-36); Mean Corpuscular Volume 88.3 fL (80-100); Mean Platelet Volume 9.9 fL (7.4-10.4); Monocytes # (auto) 0.14 K/uL (0.11-0.59); Monocytes % (auto) 0.8 %; Neutrophils # (auto) 17.58 K/uL (1.4-6.5); Neutrophils % (auto) 95.9 %; Platelet Count 273 K/uL (130-400); RDW Coefficient of Variation 12.8 % (11.5-14.5); Red Blood Count 4.87 M/uL (4.2-5.4); White Blood Count 18.33 K/uL (4.8-10.8)
[2021-01-23 10:35] LABS: BUN Creatinine Ratio 14.6 (10-20); Calcium 8.5 mg/dl (8.5-10.1); Creatinine Clr Calc Pharmacy 83.4 ml/min; Est GFR (African American) 90.9 ml/min; Est GFR (Non-African American) 78.4 ml/min; Potassium 3.6 mmol/L (3.5-5.1)
--- NOTE | 2021-01-23 17:30 | Hospitalist Consultation ---
Date of Consultation January 23, 2021 Assessment & Plan (1) Hypertension: Suspect she does have some degree of baseline hypotension, but I also suspect that her very high numbers here are likely related to pain/stress/surgery/hospitalization/etc. She responded quite nicely to 10 mg lisinoprilfor now we will send her home on that. Recommended blood pressure cuff and ambulatory monitoring. Follow-up PCP next week, basic metabolic panel next week. (2) Tachycardia: This has been an ongoing problem for the patientshe is asymptomatic, and is stable for home for ongoing outpatient evaluation. Reasonable to repeat a TSH again in this regard, it has been followed, but it has been several months, and she will need lab work done with the basic metabolic panel anyway, so would be a reasonable time to recheck. (3) Degenerative arthritis of cervical spine: While it may all be posttraumatic, and just early DJD/DDDI have asked navigator to have the patient see rheumatology just to evaluate for any sort of autoimmune or ankylosing condition that might be leading to her having premature arthritis Does appear stable for home History of Present Illness Reason for Consultation: Hypertension Attending Physician: Alden Kang, DO History of Present Illness Patient is a very pleasant 40-year-old female here after C-spine surgery. Her blood pressures have been running fairly high, and we were asked to see her. She notes that in the past she is been followed, has not clearly had hypertension, but she is suspicious that she does. She also notes with her tachycardia that she has had on again/off again tachycardia that is generally asymptomatic, and her PCP has been continuing to try to work it up. Otherwise she feels up to going home, and would very much like to leave the hospital. She was given 10 mg of lisinopril, and her blood pressures improved rather significantly. She continues to overall feel well, save for expected postop changes. Allergies Allergy/AdvReac Type Severity Reaction Status Date / Time bee venom protein (honey bee) Allergy Severe Localized Verified 01/22/21 13:23 swelling latex Allergy Severe Hives, Verified 01/22/21 13:23 rash, blistering orange Allergy Intermediate Itching, Verified 01/22/21 13:23 swelling lasmiditan [From [place]] Allergy Mild Lip Verified 01/22/21 13:23 tingling, "swelling" feeling citalopram AdvReac Intermediate "Thought Verified 01/22/21 13:23 changes" gabapentin AdvReac Intermediate Memory Verified 01/22/21 13:23 Issues, eye twitching Home Medications Medication Instructions Recorded Confirmed Type levonorgestrel 20 mcg/24 hours (7 20 mcg INTRAUTERINE CONTINOUS 05/02/18 01/21/21 History yrs) 52 mg intrauterine device (Mirena) albuterol sulfate 90 mcg/actuation 2 puff INHALATION QID PRN #18 gm 12/18/18 01/21/21 Rx aerosol inhaler (Ventolin HFA) cholecalciferol (vitamin D3) 25 25 mcg PO QAM 05/22/19 01/21/21 History mcg (1,000 unit) capsule cyanocobalamin (vitamin B-12) 5,000 mcg SUBLINGUAL QAM 04/08/20 01/21/21 History 5,000 mcg sublingual tablet (Vitamin B-12) levothyroxine 75 mcg tablet 75 mcg PO QAM 90 Days #90 tab 08/17/20 01/21/21 Rx duloxetine 30 mg capsule,delayed 30 mg PO QAM #30 cap 08/25/20 01/21/21 Rx release (Cymbalta) rizatriptan 10 mg disintegrating 10 mg PO Q2H PRN #12 tab 10/06/20 01/21/21 Rx tablet eptinezumab-jjmr 100 mg/mL 300 mg IV .COMPLEX #3 ml 10/21/20 01/21/21 Rx intravenous solution (Vyepti) lubiprostone 24 mcg capsule 24 mcg PO BID #60 cap 10/22/20 01/21/21 Rx (Amitiza) bupropion HCl 200 mg tablet,12 hr 200 mg PO BID #60 ea 12/25/20 01/21/21 Rx sustained-release phentermine 37.5 mg capsule 37.5 mg PO QAM #30 cap 01/06/21 01/21/21 Rx hydroxyzine HCl 25 mg tablet 25 mg PO HS PRN #30 tab 01/14/21 01/21/21 Rx escitalopram oxalate 10 mg tablet 10 mg PO QAM #90 tab 01/22/21 Rx oxycodone 5 mg tablet 5 mg PO Q6H PRN #20 tab 01/22/21 Rx lisinopril 10 mg tablet 10 mg PO DAILY #30 tab 01/23/21 Rx Patient History Medical History WILLIE (acute kidney injury) WILLIE 04/2020 (in setting of kidney stones) with normalization of creatinine on subsequent 06/2020 labs Anxiety Asthma Exercise induced asthma Chronic back pain Degenerative disc disease Depression Hx of lipoma Hypothyroidism Kidney stones Hx Migraine Osteoarthritis Polyarthritis Post traumatic stress disorder Sensorineural hearing loss (SNHL) of both ears Hearing aids Tachycardia Remote hx, s/p unremarkable cardiac workup HR high 90s/low 100s at PAT visit 12/11/20. Will be seeing PCP 12/18 per preop evaluation appt Temporomandibular joint disorder + pain, + locking (most recent 4+ months ago while eating/able to close on own) Thyroid nodule Hx Tinnitus, bilateral Surgical History H/O bilateral breast reduction surgery History of appendectomy History of back surgery L4-L5 Decompression/Fusion (07/06/17): Grade 2 View, ETT #7.5, MAC #3 L4-L5 Decompression (07/03/17): Grade 1 View, ETT #7.0, MAC #3 History of colonoscopy Colonoscopy (08/20/20): MAC at [facility] History of lithotripsy Left ESWL (04/24/20): [place]4 [place] [facility] [place] History of open reduction and internal fixation (ORIF) procedure Left Tib/Fib and ankle surgery History of tonsillectomy Hx of ankle fusion Left ankle x2 Hx of wisdom tooth extraction x2 Status post laparoscopic cholecystectomy Family History Grandfather Family history of diabetes mellitus Uncle Family history of diabetes mellitus Aunt FHx: Hodgkin's disease Father FHx: skin cancer Grandfather (Paternal) FHx: testicular cancer Prostate cancer Grandmother (Maternal) FHx: breast cancer Breast cancer Other No family history of adverse response to anesthesia Denies family history of Ovarian cancer Myocardial infarction Colorectal cancer Social History Smoking Status: Never smoker Second Hand Exposure: No; Hx Alcohol Use: Yes Hx Substance Use: No Preferred Language: Bolivian Communication Ability: Effective Equities Analyst Required: No Beliefs That Will Affect Care: None marital status: Current Living Situation: Spouse current occupational status: employed current occupation: [employer] Other Information That Helps Us Care for You: No Feels Safe at Home: Yes Assistive Devices: Glasses Review of Systems Review of Systems: All systems reviewed & are unremarkable except as noted in HPI & below Physical Exam Physical Exam: General she is awake and alert pleasant no distress. HEENT normocephalic atraumatic mucous membranes moist. Neck is in a hard cervical collar. Breathing unlabored no accessory muscle use good effort. Cardio is slightly tachycardic but regular. Skin without rashes, pallor, icterus or diaphoresis. No focal neuro deficits. Results & Data Results & Data ([facility]) Vital Signs (Past 12 Hours) Vital Signs Temp Pulse Pulse Resp BP Pulse Ox 01/23/21 10:56 98.1 F 125 H 16 146/87 H 96 01/23/21 10:20 98.1 F 93 H 116 H 16 155/94 H 96 01/23/21 09:14 98.1 F 116 H 16 155/94 H 96 01/23/21 07:23 90 18 95 01/23/21 07:10 98.1 F 98 H 16 155/100 H 97 PG Care Time/CCT Total # of Minutes Spent Total Time Spent with Patient: Total time spent is greater than 50% in coordination of care (as documented) at patient's floor/unit and/or counseling patient: Coding Level of Care Code 41149 Inpt Consult Level 3 Diagnoses Hypertension I10 Tachycardia R00.0 Degenerative arthritis of cervical spine M47.812
--- NOTE | 2021-02-03 10:57 | Discharge Summary ---
Date of Service February 03, 2021 Admission HPI Per Admitting Provider This is a 40-year-old female [id number] presents with known cervical radiculopathy. She states this has gotten markedly worse over the past several weeks. She describes pain radiating from her right cervical spine radiating into the right interscapular region down her arm and into the thumb index ring fingers. Is incapacitating in nature. Any activity exacerbates her pain. Awakens her from sleep. She does note some numbness and tingling affecting the left upper extremity but to a lesser degree. She describes coordination deficits involving the right hand. Discharge Data Consultations 01/21/21 22:14 ED Decision to Admit Stat 01/21/21 22:19 Consult Anesthesiology Stat 01/23/21 09:26 Consult Hospitalist Routine 01/23/21 17:29 Consult [facility] bag machine adjuster Routine Procedures Performed Operation Date: 01/22/21 08:20 Actual Procedures p C5-C6, C6-C7 Anterior Cervical Discectomy Fusion(Not Applicable) - Alden Kang DO Hospital Course (1) Cervical radiculopathy: Patient is 40-year-old female who was admitted through the emergency department on 01/21/2021. She is brought to the operating room and undergone an anterior cervical discectomy and fusion performed by Dr. Kang under general anesthesia. She at the operating room with a MARK drain in place and was transferred to PACU in stable condition. She is transferred to the orthopedic floor where she was placed on GI DVT prophylaxis. Her pain is well controlled. On postop day #1 she is deemed safe for home discharge. Her discharge instructions were reviewed in detail. She is to follow-up with the office approximate 2 weeks out from surgery or sooner should often increased pain fevers or chills.
== END 2021-01-23 11:48 | disposition home or self-care (01) | DRG 473 ==
LOC: ED 16:56 → 2W 22:19 → 3N 01-22 18:07